=== PATIENT | female | born 1995 | race Caucasian/White ===

== ENCOUNTER 2021-03-01 17:06 | Emergency (ER) | payer SELFPAY ==
[~2021-03-01] VITALS: Ht 162.6 cm; Wt 85.6 kg
[2021-03-01 17:07] VITALS: BP 123/81
--- OUTSIDE RECORDS SUMMARY | 2021-03-01 17:18 | CCD ---
Author Author Peg Kingston [facility] Address [address], [place] [id number] Care Team Providers Care Communications Assistant Name Role Phone Augusta Kingston Unavailable Hallie Goodrich Unavailable Meghan Gerardo Unavailable Functional Status No Results Mental Status No Results Assessments ThuDec 20 03:32:32 EDT 2020: No Assessment Information Health Concerns Allergies No Known Allergy Information Encounters Program Name Primary Diagnosis Admission Date/Time Discharge Date/Time [facility] We August 29 09:00:00 EDT 2020Nov 16 00:00:00 EDT 2020 [facility] ThuAugust 21 15:05:00 EDT 2020 [facility] Pre-Admission August 21 14:00:00 EDT 2020 [facility] Pre-Admission n Jan 04 15:44:00 EDT 2017 [facility] Jan 07 09:00 :00 EDT 2017Nov 19 21:00:00 EDT 2019 [facility] Pre-Admission We Feb 21 08:00:00 EST 2019 [facility] Feb 22 09:00 :00 EST 2019Feb 22 21:00:00 EST 2019 [facility] Pre-Admission We May 09 10:45:00 EST 2020Jul 09 10:00:00 EDT 2020 [facility] August 23 09:55 :00 EDT 2020 Immunizations No Known Immunizations Lab Results No Known Laboratory Results Medical Equipment No Known Medical Equipment Medications Medication Directions Start Date End Date Methadone [id number] Sat September 15 00:00:00 EDT 2020Sep 23 00:00:00 EDT 2020 Methadone [id number] [facility] August 30 00:00:00 EDT 2020August 29 00:00:00 EDT 2021 Methadone [id number] ThuAugust 23 00:00:00 EDT 2020August 22 00:00:00 EDT 2021 Doxycycline 100 MG CAP Take one (1) capsule by padmini th twice a day ThuFeb 22 00:00:00 EST 2019Mar 03 00:00:00 EST 2020 Amoxicillin 500 MG CAP Take one (1) capsule by mouth three times a day ThuFeb 22 00:00:00 EST 2020 ThuFeb 28 00:00:00 EST 2 020 Diflucan 150 MG TAB Take one (1) tablet by mouth d aily ThuFeb 22 00:00:00 EST 2019Feb 22 00:00:00 EST 2019 Methadone [id number] ThuDec 04 00:00:00 EDT 2019Dec 03 00:00:00 EDT 2020 Methadone [id number] ThuOct 12 00:00:00 EDT 2019Oct 11 00:00:00 EDT 2020 Methadone [id number] ThuJul 17 00:00:00 EDT 2019Aug 06 00:00:00 EDT 2020 Methadone [id number] ThuJun 27 00:00:00 EDT 2019Jul 06 00:00:00 EDT 2020 Methadone [id number] ThuMay 27 00:00:00 EST 2019Jun 26 00:00:00 EDT 2019 Methadone [id number] ThuSeptember 17 00:00:00 EDT 2018September 14 00:00:00 EDT 2019 Methadone [id number] ThuAug 03 00:00:00 EDT 2018September 16 00:00:00 EDT 2018 Methadone [id number] ThuJun 29 00:00:00 EDT 2018Aug 02 00:00:00 EDT 2018 Methadone [id number] ThuMay 09 23:00:00 EST 2018Jun 28 00:00:00 EDT 2018 Methadone [id number] ThuApr 30 23:00:00 EST 2018May 08 23:00:00 EST 2018 Methadone [id number] ThuApr 27 23:00:00 EST 2018Apr 29 23:00:00 EST 2018 Methadone [id number] ThuApr 13 23:00:00 EST 2017Apr 26 23:00:00 EST 2018 Methadone [id number] ThuMar 22 23:00:00 EST 2017Apr 12 23:00:00 EST 2017 Methadone [id number] ThuMar 11 23:00:00 EST 2017Mar 21 23:00:00 EST 2017 Methadone [id number] ThuMar 03 23:00:00 EST 2017Mar 10 23:00:00 EST 2017 Methadone [id number] ThuFeb 13 00:00:00 EDT 2017Mar 02 23:00:00 EST 2017 Methadone [id number] ThuFeb 08 00:00:00 EDT 2017Feb 12 00:00:00 EDT 2017 Methadone [id number] ThuJan 30 00:00:00 EDT 2017Feb 07 00:00:00 EDT 2017 Methadone [id number] ThuJan 26 00:00:00 EDT 2017Jan 29 00:00:00 EDT 2017 Methadone [id number] ThuJan 19 00:00:00 EDT 2017Jan 25 00:00:00 EDT 2017 Methadone [id number] ThuJan 07 00:00:00 EDT 2017Jan 18 00:00:00 EDT 2017 Treatment Plan Interventions Individual Session- Addiction Medicine Program will provide six days per week for medication. Opportunities for clients to report symptoms of withdrawal, sedation and/or any adverse response to nurse, physician or primary counselor. Client will be provided scheduled dosing times by nursing staff. Program will provide scheduled medication related appointments including referrals for lab work. Program will provide any additional treatment recommendations, including medical, mental health etc. OTP staff will provide education on all medication changes (prescription and over the counter) and interactions with addiction medicine. Dose changes will be processed with OTP medical team including primary therapists. Client's medication safety will be ensured by the provision that they must return take home Methadone bottles and/or Suboxone wrappers as required. Client's response to interventions will be assessed clarifying potential barriers, documenting and creating a written commitment/treatment contract based on individual client needs which will be reviewed by the treatment team and will become a part of client's ongoing treatment plan. Communicate the availability a nd potential benefits of Certified Recovery Peer Advocate (CRPA) to the patient. This communication could take place at various points of treatment including but not limited to interim services, intake, assessment, orientation, individual or group therapy, etc. Patient will be encouraged to engage with a CRPA when desired. A referral can be made when necessary. The patient will be encouraged to attend planned sessions with the CRPA. The patient will be given an opportunity to provide updates including progress to lack of during individual and /or group therapy sessions while respecting the confidentiality of their peer relationship. Patient will meet with a peer advocate for one individual session for a minimum of 30 minutes. Clinicians will facilitate edu cational discussions centered around SAMHSA's 10 Guiding Principles of Recovery (see below), helping to promote a process of change through which individuals improve their health and wellness, live a self-directed life, and strive to reach their full potential. Clinicians will facilitate discussions aimed at assisting clients in developing and reinforcing the skills necessary to implement and enact the elements outlined in SAMHSA's 10 Guiding Principles of Recovery (see below). Clinicians will facilitate an interpersonal and process discussion centered around the cultiv ation of 11 therapeutic factors (based on Jose R Grijalva's 11 therapeutic factors as outlined in Theory and Practice of Group Psychotherapy): that change is possible, universality and the reduction of isolation, altruism and the development of self-efficacy, working through existential factors while dealing with grief and loss issues, the development of socializing techniques, modeling and imitating healthy behaviors, the exchange of psychoeducational information and interpersonal learning, catharsis and meaning-making from powerful affect that arises in the intersection of mental health and disordered substance use, within a cohesive interpersonal group setting that allows for safety and a sense of belonging in order to both recapitulate and present opportunities for working through and reformulating many of the dynamics of the primary family group in which adverse early-life events, traumas, formative interpersonal styles, and attachments may have originated. Discussing with client potentially meaningful connections between interpersonal process, substance use and other areas of wellness as defined by SAMHSA's Eight Dimensions of Wellness (Emotional, Environmental, Financial, Intellectual, Physical, Occupational, Social, Spiritual) group therapist will, on an ongoing basis, evaluate client's progress toward objectives.SAMHSA'S 10 Guiding Principles of Recovery:HopeThe belief that recovery is real provides the essential and motivating message of a better future that people can and do overcome the internal and external challenges, barriers, and obstacles that confront them. Person drivenSelf-determination and self- direction are the foundations for recovery as individuals define their own life goals and design their unique path(s) towards those goals.Many pathwaysIndividu als are unique with distinct needs, strengths, preferences, goals, culture, and backgrounds including traumatic experiences that affect and determine their pathway to recovery. HolisticRecovery encompasses an individual's whole life, including self-care practices, family, housing, employment, transportation, education, clinical treatment for mental disorders and substance use disorders, services and supports, primary healthcare, dental care, complementary and alternative services, sneha, spirituality, creativity, social networks, and community participation. The array of services and supports available should be integrated and coordinated.Peer supportAn important factor in the recovery process includes the sharing of experiential knowledge and skills, as well as social learning.Relati onalAn important factor in the recovery process is the presence and involvement of people who believe in the person's ability to recover, who offer hope, support, and encouragement, and suggest both strategies and resources for change. CultureCulture and cultural background in all of its diverse representations including values, traditions, and beliefs are keys in determining a person's journey and unique pathway to recovery. TraumaThe experience of trauma (such as physical or sexual abuse, domestic violence, war, disaster, and others) is often a precursor to or associated with substance use, mental health problems, and related issues. StrengthsIndividuals have strengths and resources that serve as a foundation for recovery. In addition, individuals have a personal responsibility for their own self-care and journey of recovery. Individuals should be supported in speaking for themselves regarding their strengths, needs, wants, desires, and aspirations.Respect: Recovery involves protecting one's rights and eliminating discrimination, acknowledging that taking steps towards recovery may require great courage. Self-acceptance, developing a positive and meaningful sense of identity, and re gaining belief in oneself are particularly important. Clinician will facilitate the delivery of information about and resources for the following physical well- being, public health and safety concerns: Smoking cessation, Hepatitis C, HIV and other Sexually Transmitted Infections, Communicable Diseases, and access to emergency services for housing, domestic violence, mental health and physical health crises. - Individual Session - [facility], when and if appropriate, will utilize motivational interviewing, cognitive behavioral therapy, dialectical behavioral therapy, psychodynamic approaches, family systems, narrative therapy, rational-emotive behavioral therapy, trauma-informed care, as well as solution-focused strategies in order to assist client in efforts to achieve substance use goals by engaging in the following: Establishing rapport and building trust. Will clarify the role of primary therapist with regard to coordinating care with referral sources or other concerned parties, including confidentiality and the role that progress reports and drug screen information will have in treatment. Will invite client to consider a trial of abstinence to help identify the role of substance use in client's life. Explore feelings of ambivalence and the conflicts between substance abuse and personal values. Seek to increase the client's awareness of the consequences of continued abuse and the benefits of decreasing or stopping use. Normalize ambivalence. Help the client clarify pros and cons of substance use and change. Changing extrinsic to intrinsic motivation. Engaging in discussions clarifying and strengthening personal commitment. Discussing and educating client about alternate treatment options and gathering information regarding alternative resources and possible referral(s) (ex. Self-help, Opioid Treatment Program, MATs, 12-step, SMART Recovery, Detox, Inpatient, Long-term Residential Treatment) in order to ensure that personal level of commitment matches treatment level and assist client in connecting with these resources. Clarify the client's own goals and strategies for change. Assist client in the creation of an action plan integrating abstinence with other areas of wellness. Consider and lower barriers to change. Help the client enlist social support. Explore treatment expectancies and the client's role. Elicit from the client what has worked in the past either for them or others who they know. Assist the client to negotiate finances, childcare, work transportation, or other potential barriers. Inform the client that relapse is not a barrier in the therapeutic re lationship and educate the client on how to appropriately address relapse in treatment. Help to execute an action plan and to work on skills to maintain sobriety. acknowledge the client's feelings and experiences as a normal part of recovery. Engage the client in treatment and reinforce the importance of remaining in recovery. Support a realistic view of change through small steps. Acknowledge difficulties for the client in early stages of change, i.e. withdrawal, people, places, and things. Help the client identify and sample drug-free sources of pleasure (i.e, new reinforcers). Support lifestyle changes. Affirm the client's resolve and self-efficacy. Help the client practice and use new coping strategies to avoid a return to use. Maintain supportive contact (e.g., explain to the client that clinician is available to talk between sessions). Review long-term goals and, when and if appropriate, discuss transition plan with the client, coordinating with referral sources and supportive family members as needed, including options for continuing care. Clinician will discuss and reinforce with client the ways in which continuing relapse prevention efforts contribute to overall wellness as defined by SAMHSA's Eight Dimensions of Wellness (Emotional, Environmental, Financial, Intellectual, Physical, Occupational, Social, Spiritual).Client will be given UDS in individual sessions as needed based on clinical presentation and will review/explore results of UDS with therapist, reflecting on factors that led to client's positive or negative UDS. When and if necessary client will be given a use reflection form to complete which will be staffed by the treatment team in order to collaborate on appropriate treatment recommendations. Will review attendance with client and identify and address barriers when necessary. When and If necessary client's attendance with be staffed by the treatment team. Treatment recommendations will be reviewed with client in individual sessions. Client's response to interventions will be assessed clarifying potential barriers, documenting and creating a written commitment/treatment contract based on individual client needs which will be reviewed by the treatment team and will become a part of client's ongoing treatment plan. Clinicians will facilitate edu cational discussions centered around SAMHSA's 10 Guiding Principles of Recovery (see below), helping to promote a process of change through which individuals improve their health and wellness, live a self-directed life, and strive to reach their full potential. Clinicians will facilitate discussions aimed at assisting clients in developing and reinforcing the skills necessary to implement and enact the elements outlined in SAMHSA's 10 Guiding Principles of Recovery (see below). Clinicians will facilitate an interpersonal and process discussion centered around the cultiv ation of 11 therapeutic factors (based on Jose R Grijalva's 11 therapeutic factors as outlined in Theory and Practice of Group Psychotherapy): that change is possible, universality and the reduction of isolation, altruism and the development of self-efficacy, working through existential factors while dealing with grief and loss issues, the development of socializing techniques, modeling and imitating healthy behaviors, the exchange of psychoeducational information and interpersonal learning, catharsis and meaning-making from powerful affect that arises in the intersection of mental health and disordered substance use, within a cohesive interpersonal group setting that allows for safety and a sense of belonging in order to both recapitulate and present opportunities for working through and reformulating many of the dynamics of the primary family group in which adverse early-life events, traumas, formative interpersonal styles, and attachments may have originated. Discussing with client potentially meaningful connections between interpersonal process, substance use and other areas of wellness as defined by SAMHSA's Eight Dimensions of Wellness (Emotional, Environmental, Financial, Intellectual, Physical, Occupational, Social, Spiritual) group therapist will, on an ongoing basis, evaluate client's progress toward objectives.SAMHSA'S 10 Guiding Principles of Recovery:HopeThe belief that recovery is real provides the essential and motivating message of a better future that people can and do overcome the internal and external challenges, barriers, and obstacles that confront them. Person drivenSelf-determination and self- direction are the foundations for recovery as individuals define their own life goals and design their unique path(s) towards those goals.Many pathwaysIndividu als are unique with distinct needs, strengths, preferences, goals, culture, and backgrounds including traumatic experiences that affect and determine their pathway to recovery. HolisticRecovery encompasses an individual's whole life, including self-care practices, family, housing, employment, transportation, education, clinical treatment for mental disorders and substance use disorders, services and supports, primary healthcare, dental care, complementary and alternative services, sneha, spirituality, creativity, social networks, and community participation. The array of services and supports available should be integrated and coordinated.Peer supportAn important factor in the recovery process includes the sharing of experiential knowledge and skills, as well as social learning.Relati onalAn important factor in the recovery process is the presence and involvement of people who believe in the person's ability to recover, who offer hope, support, and encouragement, and suggest both strategies and resources for change. CultureCulture and cultural background in all of its diverse representations including values, traditions, and beliefs are keys in determining a person's journey and unique pathway to recovery. TraumaThe experience of trauma (such as physical or sexual abuse, domestic violence, war, disaster, and others) is often a precursor to or associated with substance use, mental health problems, and related issues. StrengthsIndividuals have strengths and resources that serve as a foundation for recovery. In addition, individuals have a personal responsibility for their own self-care and journey of recovery. Individuals should be supported in speaking for themselves regarding their strengths, needs, wants, desires, and aspirations.Respect: Recovery involves protecting one's rights and eliminating discrimination, acknowledging that taking steps towards recovery may require great courage. Self-acceptance, developing a positive and meaningful sense of identity, and re gaining belief in oneself are particularly important. Clinician will facilitate the delivery of information about and resources for the following physical well- being, public health and safety concerns: Smoking cessation, Hepatitis C, HIV and other Sexually Transmitted Infections, Communicable Diseases, and access to emergency services for housing, domestic violence, mental health and physical health crises. GROUP: At any of various point s of treatment including but not limited to interim services, intake, assessment, orientation, individual or group therapy, staff will provide client with the appropriate Prevention, Education, and Treatment resources surrounding the use of and exposure to Tobacco and Nicotine-related products.In so doing, relevant staff will, when and if appropriate, will utilize motivational interviewing, cognitive behavioral therapy, dialectical behavioral therapy, psychodynamic approaches, family systems, narrative therapy, rational-emotive behavioral therapy, trauma-informed care, as well as solution-focused strategies in order to assist client in efforts to achieve tobacco prevention, education and treatment goals by engaging in the following: Review and assess tobacco/nicotine use and exposure, exploring nature of tobacco/nicotine use and exposure exploring connections between tobacco/nicotine and substance use concerns, identifying individualized recovery needs, and formulating an action plan and to address identified tobacco/nicotine concerns. Engage the client in treatment and reinforce the importance of follow- through with the action plan toward addressing tobacco/nicotine concerns. When and if necessary, educate and help client identify supportive resources. With the informed consent of client, coordinate care with supportive resources identified. When and if necessary, educate and help client identify supportive resources and explore the appropriateness of Nicotine Replacement Therapies (NRT) or other medication in the treatment of tobacco/nicotine use disorder. Clinician will provide client with behavioral observations in order to assist client in developing increased awareness and personal narrative of biopsychosocial causes of tobacco/nicotine history, exploring the role of family of origin, trauma, genetic, and environmental contributing factors. Clinician will prompt client to form and articulate meaningful connections between biopsychosocial causes and current symptomatology. Discussing with client potentially meaningful connections between tobacco/nicotine usage and other areas of wellness as defined by SAMAs Eight Dimensions of Wellness (Emotional, Environmental, Financial, Intellectual, Physical, Occupational, Social, Spiritual). Primary therapist will, on an ongoing basis, evaluate clients progress toward objectives. INDIVIDUAL: Primary therapist, when and if appropriate, will utilize motivational interviewing, cognitive behavioral therapy, dialectical behavioral therapy, psychodynamic approaches, family systems, narrative therapy, rational- emotive behavioral therapy, trauma-informed care, as well as solution-focused strategies in order to assist client in efforts to achieve legal goals by engaging in the following: Review and assess legal history and explore connections between legal history and substance use concerns, formulating an action plan to address legal concerns. Engage the client in treatment and sarita nforce the importance of follow-through with the action plan toward addressing legal concerns. When and if necessary, educate and help client identify supportive resources. With the informed consent of client, coordinate care with supportive resources identified. Clinician will provide client with behavioral observations in order to assist client in developing increased awareness and personal narrative of biopsychosocial causes of legal history, exploring the role of family of origin, trauma, genetic, and environmental contributing factors. Clinician will prompt client to form and articulate meaningful connections between biopsychosocial causes and current legal status. Discussing with client potentially meaningful connections between current legal status and other areas of wellness as defined by SAMHSA's Eight Dimensions of Wellness (Emotional, Environmental, Financial, Intellectual, Physical, Occupational, Social, Spiritual). Support a realistic view of change through small steps. Acknowledging and identifying barriers to action plan, prompting client to identify alternate solutions. Review with client changes made and outcomes of these changes. Primary therapist will, on an ongoing basis, evaluate client's progress toward objectives and will collaborate with client and treatment team in order to determine appropriate recommendations. Treatment recommendations will be reviewed with client in individual sessions. Client's response to interventions will be assessed, clarifying potential barriers, documenting and creating a written commitment/treatment contract based on individual client needs which will be reviewed by the treatment team and will become a part of client's ongoing treatment plan GROUP: Clinicians will facilit ate educational discussions centered around SAMHSA's 10 Guiding Principles of Recovery (see below), helping to promote a process of change through which individuals improve their health and wellness, live a self-directed life, and strive to reach their full potential. Clinicians will facilitate discussions aimed at assisting clients in developing and reinforcing the skills necessary to implement and enact the elements outlined in SAMHSA's 10 Guiding Principles of Recovery (see below). Clinicians will facilitate an interpersonal and process discussion centered around the cultivation of 11 therapeutic factors (based on Jose R Grijalva's 11 therapeutic factors as outlined in Theory and Practice of Group Psychotherapy): that change is possible, universality and the reduction of isolation, altruism and the development of self-efficacy, working through existential factors while dealing with grief and loss issues, the development of socializing techniques, modeling and imitating healthy behaviors, the exchange of psychoeducational information and interpersonal learning, catharsis and meaning-making from powerful affect that arises in the intersection of mental health and disordered substance use, within a cohesive interpersonal group setting that allows for safety and a sense of belonging in order to both recapitulate and present opportunities for working through and reformulating many of the dynamics of the primary family group in which adverse early-life events, traumas, formative interpersonal styles, and attachments may have originated. Discussing with client potentially meaningful connections between interpersonal process, substance use and other areas of wellness as defined by SAMHSA's Eight Dimensions of Wellness (Emotional, Environmental, Financial, Intellectual, Physical, Occupational, Social, Spiritual) group therapist will, on an ongoing basis, evaluate client's progress toward objectives.SAMHSA'S 10 Guiding Principles of Recovery:HopeThe be lief that recovery is real provides the essential and motivating message of a better future that people can and do overcome the internal and external challenges, barriers, and obstacles that confront them. Person drivenSelf-determination and self- direction are the foundations for recovery as individuals define their own life goals and design their unique path(s) towards those goals.Many pathwaysInd ividuals are unique with distinct needs, strengths, preferences, goals, culture, and backgrounds including traumatic experiences that affect and determine their pathway to recovery. HolisticRecovery encompasses an individual's whole life, including self-care practices, family, housing, employment, transportation, education, clinical treatment for mental disorders and substance use disorders, services and supports, primary healthcare, dental care, complementary and alternative services, sneha, spirituality, creativity, social networks, and community participation. The array of services and supports available should be integrated and coordinated.Peer supportAn important factor in the recovery process includes the sharing of experiential knowledge and skills, as well as social learning.R elationalAn important factor in the recovery process is the presence and involvement of people who believe in the person's ability to recover, who offer hope, support, and encouragement, and suggest both strategies and resources for change. CultureCulture and cultural background in all of its diverse representations including values, traditions, and beliefs are keys in determining a person's journey and unique pathway to recovery. TraumaThe experience of trauma (such as physical or sexual abuse, domestic violence, war, disaster, and others) is often a precursor to or associated with substance use, mental health problems, and related issues. StrengthsIndividuals have strengths and resources that serve as a foundation for recovery. In addition, individuals have a personal responsibility for their own self-care and journey of recovery. Individuals should be supported in speaking for themselves regarding their strengths, needs, wants, desires, and aspirations.Respect: Recovery involves protecting one's rights and eliminating discrimination, acknowledging that taking steps towards recovery may require great courage. Self-acceptance, developing a positive and meaningful sense of identity, and regaining belief in oneself are particularly important. Clinician will facilitate the delivery of information about and resources for the following physical well-being, public health and safety concerns: Smoking cessation, Hepatitis C, HIV and other Sexually Transmitted Infections, Communicable Diseases, and access to emergency services for housing, domestic violence, mental health and physical health crises. INDIVIDUAL: At any of various points of treatment including but not limited to interim services, intake, assessment, orientation, individual or group therapy, staff will provide client with the appropriate Prevention, Education, and Treatment resources surrounding the use of and exposure to Tobacco and Nicotine-related products.In so doing, relevant staff will, when and if appropriate, will utilize motivational interviewing, cognitive behavioral therapy, dialectical behavioral therapy, psychodynamic approaches, family systems, narrative therapy, rational-emotive behavioral therapy, trauma-informed care, as well as solution-focused strategies in order to assist client in efforts to achieve tobacco prevention, education and treatment goals by engaging in the following: Review and assess tobacco/nicotine use and exposure, exploring nature of tobacco/nicotine use and exposure exploring connections between tobacco/nicotine and substance use concerns, identifying individualized recovery needs, and formulating an action plan and to address identified tobacco/nicotine concerns. Engage the client in treatment and reinforce the importance of follow- through with the action plan toward addressing tobacco/nicotine concerns. When and if necessary, educate and help client identify supportive resources. With the informed consent of client, coordinate care with supportive resources identified. When and if necessary, educate and help client identify supportive resources and explore the appropriateness of Nicotine Replacement Therapies (NRT) or other medication in the treatment of tobacco/nicotine use disorder. Clinician will provide client with behavioral observations in order to assist client in developing increased awareness and personal narrative of biopsychosocial causes of tobacco/nicotine history, exploring the role of family of origin, trauma, genetic, and environmental contributing factors. Clinician will prompt client to form and articulate meaningful connections between biopsychosocial causes and current symptomatology. Discussing with client potentially meaningful connections between tobacco/nicotine usage and other areas of wellness as defined by SAMHSAs Eight Dimensions of Wellness (Emotional, Environmental, Financial, Intellectual, Physical, Occupational, Social, Spiritual). Primary therapist will, on an ongoing basis, evaluate clients progress toward objectives. Individual Session - Physical HealthPrimary therapist, when and if appropriate, will utilize motivational interviewing, cognitive behavioral therapy, dialectical behavioral therapy, psychodynamic approaches, family systems, narrative therapy, rational-emotive behavioral therapy, trauma-informed care, as well as solution-focused strategies in order to assist client in efforts to achieve physical health goals by engaging in the following: Engage the client in treatment and reinforce the importance of follow-through with the action plan toward addressing physical health concerns. Discussing with client potentially meaningful connections between current physical health status and other areas of wellness as defined by SAMHSA's Eight Dimensions of Wellness (Emotional, Environmental, Financial, Intellectual, Physical, Occupational, Social, Spiritual). Support a realistic view of change through small steps. Acknowledging and identifying barriers to action plan, prompting client to identify alternate solutions. Review with client changes made and outcomes of these changes. When and if necessary, educate and help client identify supportive resources and make appropriate referrals. With the informed consent of client, coordinate care with supportive resources identified. Primary therapist will, on an ongoing basis, evaluate client's progress toward objectives and will collaborate with client and treatment team in order to determine appropriate recommendations. Treatment recommendations will be reviewed with client in individual sessions. Client's response to interventions will be assessed clarifying potential barriers, documenting and creating a written commitment/treatment contract based on individual client needs which will be reviewed by the treatment team and will become a part of client's ongoing treatment plan. Individual Session - Mental althPrimary therapist, when and if appropriate, will utilize motivational interviewing, cognitive behavioral therapy, dialectical behavioral therapy, psychodynamic approaches, family systems, narrative therapy, rational-emotive behavioral therapy, trauma-informed care, as well as solution-focused strategies in order to assist client in efforts to achieve mental health goals by engaging in the following: review and assess for mental health diagnoses, exploring nature of diagnoses and exploring connections between mental health and substance use concerns, formulating an action plan to address mental health. Engage the client in treatment and reinforce the importance of follow-through with the action plan toward addressing mental health concerns. When and if necessary, educate and help client identify supportive resources, make appropriate referrals and explore the appropriateness of medication in the treatment of mental health concerns. With the informed consent of client, coordinate care with supportive resources identified. Clinician will provide client with behavioral observations in order to assist client in developing increased awareness and personal narrative of biopsychosocial causes of mental health concerns, exploring the role of family of origin, trauma, genetic, and environmental contributing factors. Clinician will prompt client to form and articulate meaningful connections between biopsychosocial causes and current symptomatology. Discussing with client potentially meaningful connections between current mental health status and other areas of wellness as defined by SAMHSA's Eight Dimensions of Wellness (Emotional, Environmental, Financial, Intellectual, Physical, Occupational, Social, Spiritual). Support a realistic view of change through small steps. Acknowledging and identifying barriers to action plan, prompting client to identify alternate solutions. Review with client changes made and outcomes of these changes. Primary therapist will, on an ongoing basis, evaluate client's progress toward objectives and will collaborate with client and treatment team in order to determine appropriate recommendations. Treatment recommendations will be reviewed with client in individual sessions. Client's response to interventions will be assessed clarifying potential barriers, documenting and creating a written commitment/treatment contract based on individual client needs which will be reviewed by the treatment team and will become a part of client's ongoing treatment plan. Clinicians will facilitate edu cational discussions centered around SAMHSA's 10 Guiding Principles of Recovery (see below), helping to promote a process of change through which individuals improve their health and wellness, live a self-directed life, and strive to reach their full potential. Clinicians will facilitate discussions aimed at assisting clients in developing and reinforcing the skills necessary to implement and enact the elements outlined in SAMHSA's 10 Guiding Principles of Recovery (see below). Clinicians will facilitate an interpersonal and process discussion centered around the cultiv ation of 11 therapeutic factors (based on Jose R Grijalva's 11 therapeutic factors as outlined in Theory and Practice of Group Psychotherapy): that change is possible, universality and the reduction of isolation, altruism and the development of self-efficacy, working through existential factors while dealing with grief and loss issues, the development of socializing techniques, modeling and imitating healthy behaviors, the exchange of psychoeducational information and interpersonal learning, catharsis and meaning-making from powerful affect that arises in the intersection of mental health and disordered substance use, within a cohesive interpersonal group setting that allows for safety and a sense of belonging in order to both recapitulate and present opportunities for working through and reformulating many of the dynamics of the primary family group in which adverse early-life events, traumas, formative interpersonal styles, and attachments may have originated. Discussing with client potentially meaningful connections between interpersonal process, substance use and other areas of wellness as defined by SAMHSA's Eight Dimensions of Wellness (Emotional, Environmental, Financial, Intellectual, Physical, Occupational, Social, Spiritual) group therapist will, on an ongoing basis, evaluate client's progress toward objectives.SAMHSA'S 10 Guiding Principles of Recovery:HopeThe belief that recovery is real provides the essential and motivating message of a better future that people can and do overcome the internal and external challenges, barriers, and obstacles that confront them. Person drivenSelf-determination and self- direction are the foundations for recovery as individuals define their own life goals and design their unique path(s) towards those goals.Many pathwaysIndividu als are unique with distinct needs, strengths, preferences, goals, culture, and backgrounds including traumatic experiences that affect and determine their pathway to recovery. HolisticRecovery encompasses an individual's whole life, including self-care practices, family, housing, employment, transportation, education, clinical treatment for mental disorders and substance use disorders, services and supports, primary healthcare, dental care, complementary and alternative services, sneha, spirituality, creativity, social networks, and community participation. The array of services and supports available should be integrated and coordinated.Peer supportAn important factor in the recovery process includes the sharing of experiential knowledge and skills, as well as social learning.Relati onalAn important factor in the recovery process is the presence and involvement of people who believe in the person's ability to recover, who offer hope, support, and encouragement, and suggest both strategies and resources for change. CultureCulture and cultural background in all of its diverse representations including values, traditions, and beliefs are keys in determining a person's journey and unique pathway to recovery. TraumaThe experience of trauma (such as physical or sexual abuse, domestic violence, war, disaster, and others) is often a precursor to or associated with substance use, mental health problems, and related issues. StrengthsIndividuals have strengths and resources that serve as a foundation for recovery. In addition, individuals have a personal responsibility for their own self-care and journey of recovery. Individuals should be supported in speaking for themselves regarding their strengths, needs, wants, desires, and aspirations.Respect: Recovery involves protecting one's rights and eliminating discrimination, acknowledging that taking steps towards recovery may require great courage. Self-acceptance, developing a positive and meaningful sense of identity, and re gaining belief in oneself are particularly important. Clinician will facilitate the delivery of information about and resources for the following physical well- being, public health and safety concerns: Smoking cessation, Hepatitis C, HIV and other Sexually Transmitted Infections, Communicable Diseases, and access to emergency services for housing, domestic violence, mental health and physical health crises. GROUP: Clinicians will facilit ate educational discussions centered around SAMHSA's 10 Guiding Principles of Recovery (see below), helping to promote a process of change through which individuals improve their health and wellness, live a self-directed life, and strive to reach their full potential. Clinicians will facilitate discussions aimed at assisting clients in developing and reinforcing the skills necessary to implement and enact the elements outlined in SAMHSA's 10 Guiding Principles of Recovery (see below). Clinicians will facilitate an interpersonal and process discussion centered around the cultivation of 11 therapeutic factors (based on Jose R Grijalva's 11 therapeutic factors as outlined in Theory and Practice of Group Psychotherapy): that change is possible, universality and the reduction of isolation, altruism and the development of self-efficacy, working through existential factors while dealing with grief and loss issues, the development of socializing techniques, modeling and imitating healthy behaviors, the exchange of psychoeducational information and interpersonal learning, catharsis and meaning-making from powerful affect that arises in the intersection of mental health and disordered substance use, within a cohesive interpersonal group setting that allows for safety and a sense of belonging in order to both recapitulate and present opportunities for working through and reformulating many of the dynamics of the primary family group in which adverse early-life events, traumas, formative interpersonal styles, and attachments may have originated. Discussing with client potentially meaningful connections between interpersonal process, substance use and other areas of wellness as defined by SAMHSA's Eight Dimensions of Wellness (Emotional, Environmental, Financial, Intellectual, Physical, Occupational, Social, Spiritual) group therapist will, on an ongoing basis, evaluate client's progress toward objectives.SAMHSA'S 10 Guiding Principles of Recovery:HopeThe be lief that recovery is real provides the essential and motivating message of a better future that people can and do overcome the internal and external challenges, barriers, and obstacles that confront them. Person drivenSelf-determination and self- direction are the foundations for recovery as individuals define their own life goals and design their unique path(s) towards those goals.Many pathwaysInd ividuals are unique with distinct needs, strengths, preferences, goals, culture, and backgrounds including traumatic experiences that affect and determine their pathway to recovery. HolisticRecovery encompasses an individual's whole life, including self-care practices, family, housing, employment, transportation, education, clinical treatment for mental disorders and substance use disorders, services and supports, primary healthcare, dental care, complementary and alternative services, sneha, spirituality, creativity, social networks, and community participation. The array of services and supports available should be integrated and coordinated.Peer supportAn important factor in the recovery process includes the sharing of experiential knowledge and skills, as well as social learning.R elationalAn important factor in the recovery process is the presence and involvement of people who believe in the person's ability to recover, who offer hope, support, and encouragement, and suggest both strategies and resources for change. CultureCulture and cultural background in all of its diverse representations including values, traditions, and beliefs are keys in determining a person's journey and unique pathway to recovery. TraumaThe experience of trauma (such as physical or sexual abuse, domestic violence, war, disaster, and others) is often a precursor to or associated with substance use, mental health problems, and related issues. StrengthsIndividuals have strengths and resources that serve as a foundation for recovery. In addition, individuals have a personal responsibility for their own self-care and journey of recovery. Individuals should be supported in speaking for themselves regarding their strengths, needs, wants, desires, and aspirations.Respect: Recovery involves protecting one's rights and eliminating discrimination, acknowledging that taking steps towards recovery may require great courage. Self-acceptance, developing a positive and meaningful sense of identity, and regaining belief in oneself are particularly important. Clinician will facilitate the delivery of information about and resources for the following physical well-being, public health and safety concerns: Smoking cessation, Hepatitis C, HIV and other Sexually Transmitted Infections, Communicable Diseases, and access to emergency services for housing, domestic violence, mental health and physical health crises. Problems Active Concerns* Address substance use concern(s)* Code: * Start Date: ThuAugust 31 00:00:00 EDT 2020 * Text: * Address legal concern(s)* Code: * Start Date: ThuAugust 31 00:00:00 EDT 2020 * Text: * Prevention, Education, and Treatment surrounding use of and exposure to Tobacco* Code: * Start Date: ThuAugust 31 00:00:00 EDT 2020 * Text: * Opioid type dependence, unspecified* Code: [id number] * Start Date: ThuJan 07 06:51:00 EDT 2017 * Text: * Address mental health concerns(s)* Code: * Start Date: ThuAugust 31 00:00:00 EDT 2020 * Text: * Address physical health concern(s)* Code: * Start Date: ThuAugust 31 00:00:00 EDT 2020 * Text: * Address addiction medicine concern(s)* Code: * Start Date: ThuAugust 31 00:00:00 EDT 2020 * Text: * Tobacco use disorder* Code: [id number] * Start Date: ThuAugust 22 00:00:00 EDT 2020 * Text: * Opioid abuse, unspecified* Code: [id number] * Start Date: ThuAugust 22 00:00:00 EDT 2020 * Text: * Exposure to and engagement with Peer Services* Code: * Start Date: ThuSep 18 00:00:00 EDT 2019 * Text: Procedures Procedure Date Practitioner Name Location [facility] Pre-Admission Initial Assessment Session ThuAugust 22 10:30:00 EDT 2021 Social History Social History Observation Description Date Sex Female ThuSep 23 00:00:00 EDT 1993 Vital Signs No Known Vitals
--- OUTSIDE RECORDS SUMMARY | 2021-03-01 17:18 | CCD ---
Author Author Peg Montoya Generated Organization [facility] Address Unknown Phone Unavailable Functional Status No Results Mental Status No Results Assessments ThuFeb 23 02:44:53 EDT 2020: No Assessment Information Health Concerns Allergies No Known Allergy Information Encounters No Known Encounters Immunizations No Known Immunizations Lab Results No Known Laboratory Results Medical Equipment No Known Medical Equipment Medications Medication Directions Start Date End Date Methadone [id number] ThuSeptember 15 00:00:00 EDT 2020Sep 23 00:00:00 EDT 2020 Methadone [id number] ThuAugust 30 00:00:00 EDT 2020August 29 00:00:00 EDT 2021 Methadone [id number] ThuAugust 23 00:00:00 EDT 2020August 22 00:00:00 EDT 2021 Doxycycline 100 MG CAP Take one (1) capsule by padmini th twice a day ThuFeb 22 00:00:00 EST 2019Mar 03 00:00:00 EST 2019 Amoxicillin 500 MG CAP Take one (1) capsule by mouth three times a day ThuFeb 22 00:00:00 EST 2019Feb 28 00:00:00 EST 2 020 Diflucan 150 MG TAB Take one (1) tablet by mouth d aily ThuFeb 22 00:00:00 EST 2019Feb 22 00:00:00 EST 2020 Methadone [id number] ThuDec 04 00:00:00 EDT 2019Dec 03 00:00:00 EDT 2020 Methadone [id number] ThuOct 12 00:00:00 EDT 2019Oct 11 00:00:00 EDT 2020 Methadone [id number] ThuJul 17 00:00:00 EDT 2019Aug 06 00:00:00 EDT 2019 Methadone [id number] ThuJun 27 00:00:00 EDT 2019Jul 06 00:00:00 EDT 2019 Methadone [id number] ThuMay 27 00:00:00 EST 2019Jun 26 00:00:00 EDT 2019 Methadone [id number] ThuSeptember 17 00:00:00 EDT 2018September 14 00:00:00 EDT 2019 Methadone [id number] ThuAug 03 00:00:00 EDT 2018September 16 00:00:00 EDT 2018 Methadone [id number] ThuJun 29 00:00:00 EDT 2018Aug 02 00:00:00 EDT 2018 Methadone [id number] ThuMay 09 23:00:00 EST 2018Jun 28 00:00:00 EDT 2018 Methadone [id number] ThuApr 30 23:00:00 EST 2018 Sat May 08 23:00:00 EST 2018 Methadone [id number] ThuApr 27 23:00:00 EST 2018 [place] Apr 29 23:00:00 EST 2018 Methadone [id number] ThuApr 13 23:00:00 EST 2017Apr 26 23:00:00 EST 2018 Methadone [id number] ThuMar 22 23:00:00 EST 2017Apr 12 23:00:00 EST 2017 Methadone [id number] ThuMar 11 23:00:00 EST 2017Mar 21 23:00:00 EST 2017 Methadone [id number] ThuMar 03 23:00:00 EST 2017Mar 10 23:00:00 EST 2017 Methadone [id number] ThuFeb 13 00:00:00 EDT 2017Mar 02 23:00:00 EST 2017 Methadone [id number] ThuFeb 08 00:00:00 EDT 2017Feb 12 00:00:00 EDT 2017 Methadone [id number] ThuJan 30 00:00:00 EDT 2017Feb 07 00:00:00 EDT 2017 Methadone [id number] ThuJan 26 00:00:00 EDT 2017Jan 29 00:00:00 EDT 2017 Methadone [id number] ThuJan 19 00:00:00 EDT 2017Jan 25 00:00:00 EDT 2017 Methadone [id number] ThuJan 07 00:00:00 EDT 2017Jan 18 00:00:00 [...] health crises. - Individual Session - [facility] UsePrimary therapist, when and if appropriate, will utilize [...] client's ongoing treatment plan. Individual Session - [facility] therapist, when and if appropriate, will utilize [...] Text: * Opioid type dependence, unspecified* Code: [id number] * Start Date: ThuJan 07 06:51:00 EDT 2017 * Text: * Address mental health concerns(s)* Code: * Start Date: ThuAugust 31 00:00:00 EDT 2020 * Text: * Address physical health concern(s)* Code: * Start Date: ThuAugust 31 00:00:00 EDT 2020 * Text: * Address addiction medicine concern(s)* Code: * Start Date: ThuAugust 31 00:00:00 EDT 2020 * Text: * Tobacco use disorder* Code: [id number] * Start Date: ThuAugust 22 00:00:00 EDT 2020 * Text: * Opioid abuse, unspecified* Code: [id number] * Start Date: ThuAugust 22 00:00:00 EDT 2020 * Text: * Exposure to and engagement with Peer Services* Code: * Start Date: ThuSep 18 00:00:00 EDT 2019 * Text: Procedures Procedure Date Practitioner Name Location [facility]TP Pre-Admission Initial Assessment Session ThuAugust 22 10:30:00 EDT 2020 Social History Social History Observation Description Date Sex Female ThuSep 23 00:00:00 EDT 1993 Vital Signs No Known Vitals
--- OUTSIDE RECORDS SUMMARY | 2021-03-01 17:18 | CCD ---
Author Author [facility] Organization [facility] Address Unknown Phone Unavailable Care Team Providers Care Sdet Name Role Phone Abad, Alanna CONTENT DEVELOPMENT SPECIALIST Unavailable Unavailable Abad, Alanna CONTENT DEVELOPMENT SPECIALIST Unavailable Unavailable Abad, Alanna CONTENT DEVELOPMENT SPECIALIST Unavailable Unavailable Abad, Alanna CONTENT DEVELOPMENT SPECIALIST Unavailable Unavailable Abad, Alanna CONTENT DEVELOPMENT SPECIALIST Unavailable Unavailable Abad, Alanna CONTENT DEVELOPMENT SPECIALIST Unavailable Unavailable Abad, Alanna CONTENT DEVELOPMENT SPECIALIST Unavailable Unavailable Abad, Alanna CONTENT DEVELOPMENT SPECIALIST Unavailable Unavailable Abad, Alanna CONTENT DEVELOPMENT SPECIALIST Unavailable Unavailable Abad, Alanna CONTENT DEVELOPMENT SPECIALIST Unavailable Unavailable Abad, Alanna CONTENT DEVELOPMENT SPECIALIST Unavailable Unavailable Abad, Alanna CONTENT DEVELOPMENT SPECIALIST Unavailable Unavailable Abad, Alanna CONTENT DEVELOPMENT SPECIALIST Unavailable Unavailable Abad, Alanna CONTENT DEVELOPMENT SPECIALIST Unavailable Unavailable Abad, Alanna CONTENT DEVELOPMENT SPECIALIST Unavailable Unavailable Abad, Alanna CONTENT DEVELOPMENT SPECIALIST Unavailable Unavailable Abad, Alanna CONTENT DEVELOPMENT SPECIALIST Unavailable Unavailable Abad, Alanna CONTENT DEVELOPMENT SPECIALIST Unavailable Unavailable Abad, Alanna CONTENT DEVELOPMENT SPECIALIST Unavailable Unavailable Abad, Alanna CONTENT DEVELOPMENT SPECIALIST Unavailable Unavailable Abad, Alanna CONTENT DEVELOPMENT SPECIALIST Unavailable Unavailable Abad, Alanna CONTENT DEVELOPMENT SPECIALIST Unavailable Unavailable Abad, Alanna CONTENT DEVELOPMENT SPECIALIST Unavailable Unavailable Abad, Alanna CONTENT DEVELOPMENT SPECIALIST Unavailable Unavailable Abad, Alanna CONTENT DEVELOPMENT SPECIALIST Unavailable Unavailable Abad, Alanna CONTENT DEVELOPMENT SPECIALIST Unavailable Unavailable Abad, Alanna CONTENT DEVELOPMENT SPECIALIST Unavailable Unavailable Abad, Alanna CONTENT DEVELOPMENT SPECIALIST Unavailable Unavailable Letty, L [place] ADMINISTRATIVE NURSING SUPERVISOR Unavailable Unavailable COOK ., TOMASA DO Unavailable Unavailable COOK ., TOMASA DO Unavailable Unavailable Ahmed, M Mohamed MD Unavailable Unavailable Ahmed, M Mohamed MD Unavailable Unavailable Ahmed, M Mohamed MD Unavailable Unavailable Ahmed, M Mohamed MD Unavailable Unavailable Ahmed, M Mohamed MD Unavailable Unavailable Ahmed, M Mohamed MD Unavailable Unavailable Ahmed, M Mohamed MD Unavailable Unavailable Ahmed, M Mohamed MD Unavailable Unavailable Ahmed, M Mohamed MD Unavailable Unavailable Ahmed, M Mohamed MD Unavailable Unavailable Ahmed, M Mohamed MD Unavailable Unavailable Ahmed, M Mohamed MD Unavailable Unavailable Ahmed, M Mohamed MD Unavailable Unavailable Ahmed, M Mohamed MD Unavailable Unavailable Ahmed, M Mohamed MD Unavailable Unavailable Ahmed, M Mohamed MD Unavailable Unavailable Ahmed, M Mohamed MD Unavailable Unavailable Ahmed, M Mohamed MD Unavailable Unavailable Ahmed, M Mohamed MD Unavailable Unavailable Ahmed, M Mohamed MD Unavailable Unavailable Ahmed, M Mohamed MD Unavailable Unavailable Ahmed, M Mohamed MD Unavailable Unavailable Ahmed, M Mohamed MD Unavailable Unavailable Ahmed, M Mohamed MD Unavailable Unavailable Ahmed, M Mohamed MD Unavailable Unavailable Ahmed, M Mohamed MD Unavailable Unavailable Ahmed, M Mohamed MD Unavailable Unavailable Ahmed, M Mohamed MD Unavailable Unavailable Ahmed, M Mohamed MD Unavailable Unavailable Ahmed, M Mohamed MD Unavailable Unavailable Ahmed, M Mohamed MD Unavailable Unavailable Ahmed, M Mohamed MD Unavailable Unavailable Ahmed, M Mohamed MD Unavailable Unavailable Ahmed, M Mohamed MD Unavailable Unavailable Ahmed, M Mohamed MD Unavailable Unavailable Ahmed, M Mohamed MD Unavailable Unavailable Ahmed, M Mohamed MD Unavailable Unavailable Ahmed, M Mohamed MD Unavailable Unavailable Ahmed, M Mohamed MD Unavailable Unavailable Ahmed, M Mohamed MD Unavailable Unavailable Ahmed, M Mohamed MD Unavailable Unavailable Ahmed, M Mohamed MD Unavailable Unavailable Ahmed, M Mohamed MD Unavailable Unavailable Ahmed, M Mohamed MD Unavailable Unavailable Ahmed, M Mohamed MD Unavailable Unavailable Ahmed, M Mohamed MD Unavailable Unavailable Ahmed, M Mohamed MD Unavailable Unavailable Ahmed, M Mohamed MD Unavailable Unavailable Ahmed, M Mohamed MD Unavailable Unavailable Nupuf, S Dada MD Unavailable Unavailable Nupuf, S Dada MD Unavailable Unavailable Nupuf, S Dada MD Unavailable Unavailable Nupuf, S Dada MD Unavailable Unavailable Nupuf, S Dada MD Unavailable Unavailable Nupuf, S Dada MD Unavailable Unavailable Nupuf, S Dada MD Unavailable Unavailable Nupuf, S Dada MD Unavailable Unavailable Nupuf, S Dada MD Unavailable Unavailable Nupuf, S Dada MD Unavailable Unavailable Nupuf, S Dada MD Unavailable Unavailable Nupuf, S Dada MD Unavailable Unavailable Nupuf, S Dada MD Unavailable Unavailable Nupuf, S Dada MD Unavailable Unavailable Nupuf, S Dada MD Unavailable Unavailable Nupuf, S Dada MD Unavailable Unavailable Nupuf, S Dada MD Unavailable Unavailable Nupuf, S Dada MD Unavailable Unavailable Nupuf, S Dada MD Unavailable Unavailable Nupuf, S Dada MD Unavailable Unavailable Nupuf, S Dada MD Unavailable Unavailable Nupuf, S Dada MD Unavailable Unavailable Nupuf, S Dada MD Unavailable Unavailable Jazmin Boudreaux MD Unavailable Unavailable Jazmin Boudreaux MD Unavailable Unavailable Jazmin Boudreaux MD Unavailable Unavailable Jazmin Boudreaux MD Unavailable Unavailable Jazmin Boudreaux MD Unavailable Unavailable Jazmin Boudreaux MD Unavailable Unavailable Jazmin Boudreaux MD Unavailable Unavailable Jazmin Boudreaux MD Unavailable Unavailable Jazmin Boudreaux MD Unavailable Unavailable Jazmin Boudreaux MD Unavailable Unavailable Jazmin Boudreaux MD Unavailable Unavailable Jazmin Boudreaux MD Unavailable Unavailable Jazmin Boudreaux MD Unavailable Unavailable Jazmin Boudreaux MD Unavailable Unavailable Jazmin Boudreaux MD Unavailable Unavailable Jazmin Boudreaux MD Unavailable Unavailable Jazmin Boudreaux MD Unavailable Unavailable Jazmin Boudreaux MD Unavailable Unavailable Jazmin Boudreaux MD Unavailable Unavailable Jazmin Boudreaux MD Unavailable Unavailable Fernando Yanez [facility] Unavailable Unavailable Singh Xiao MD Unavailable Unavailable Singh Xiao MD Unavailable Unavailable Singh Xiao MD Unavailable Unavailable Singh Xiao MD Unavailable Unavailable Singh Xiao MD Unavailable Unavailable Singh Xiao MD Unavailable Unavailable Singh MAHCADO MD Unavailable Unavailable Singh MACHADO MD Unavailable Unavailable Singh MACHADO MD Unavailable Unavailable Singh MACHADO MD Unavailable Unavailable Singh MACHADO MD Unavailable Unavailable Singh MACHADO MD Unavailable Unavailable Re-disclosure Warning The records that you are about to access may contain information from federally-assisted alcohol or drug abuse programs. If such information is present, then the following federally mandated warning applies: This information has been disclosed to you from records protected by federal confidentiality rules (42 CFR part 2). The federal rules prohibit you from making any further disclosure of this information unless further disclosure is expressly permitted by the written consent of the person to whom it pertains or as otherwise permitted by 42 CFR part 2. A general authorization for the release of medical or other information is NOT sufficient for this purpose. The Federal rules restrict any use of the information to criminally investigate or prosecute any alcohol or drug abuse patient.The records that you are about to access may contain highly sensitive health information, the redisclosure of which is protected by Article 27-F of the [facility] Public Health law. If you continue you may have access to information: Regarding HIV / AIDS; Provided by facilities licensed or operated by the [facility] Office of Mental Health; or Provided by the [facility] Office for People With Developmental Disabilities. If such information is present, then the following [facility] mandated warning applies: This information has been disclosed to you from confidential records which are protected by state law. State law prohibits you from making any further disclosure of this information without the specific written consent of the person to whom it pertains, or as otherwise permitted by law. Any unauthorized further disclosure in violation of state law may result in a fine or fpc sentence or both. A general authorization for the release of medical or other information is NOT sufficient authorization for further disc losure. Allergies and Adverse Reactions Type Description Substance Reaction Status Data Source(s ) Drug allergy latex Latex RASH/HIVES [facility] Family History Family Member Name Family Member Gender Family Member Status Date o f Status Description Data Source(s) Unknown Condition [facility] Unknown Condition [facility] Unknown Condition [facility] Unknown Condition [facility] Unknown Condition [facility] Unknown Condition [facility] Unknown Condition [facility] Encounters Encounter Providers Location Date Indications Data Source(s ) Outpatient 02/25/2021 12:00:00 AM [facility] Outpatient 02/18/2021 12:00:[address] [facility] Outpatient Attender: ALBINO MACHADO MDReferrer: ALBINO Donovan MD 02/11/2021 12:00:00 AM EDT Opioid dependence, uncomplicated [facility] Opioid dependence, uncomplicated Outpatient Attender: ALBINO MACHADO MD [id number] 02/11 12:00:00 AM EDT - 02/11/2021 03:01:34 PM EDT [facility] fol Outpatient 02/04/2021 12:00:[address] [facility] Outpatient Attender: ALBINO MACHADO MD [id number] 01/29 12:00:00 AM EDT - 01/29/2021 12:03:48 PM EDT [facility] Outpatient Attender: Gibson Xiao MDReferrer: ALBINO MACHADO MD [id number] 01/29/2021 12:00:00 AM EDT - 01/29/2021 10:31:[address] [facility] Outpatient Attender: ALBINO MACHADO MD [id number] 01/21 12:00:00 AM EDT - 01/21/2021 02:14:10 PM EDT [facility] consult Emergency Attender: ALBINO MACHADO MD [id number] 01/17 12:00:00 AM EDT - 01/17/2021 10:02:[address] [facility] addiction problem Patient discharged. Outpatient Attender: Moody Yanez [facility] [place]30[facility]2020 09:30 :00 [facility]: Moody Yanez [facility] India Saenz [facility] 11/22/2020 03:00:00 PM [facility] Emergency Attender: TOMASA COOK . 11:30:00 PM EDT - 10/03/2020 12:40:00 AM EDT 941-MH Eval [facility] 941-MH Eval Patient discharged. Unlisted evaluation and management service 08/29/2020 01:00:00 PM EDT - 11/16/2020 04:00:00 AM EDT [facility] ([place] [facility]) Unlisted evaluation and management service 09/2020 01:55:00 PM EDT [facility] ([place] [facility]) Emergency Attender: Debbie Stovall MD 08/22 08:19:00 PM EDT - 08/22/2020 11:00:00 PM EDT Infection on Forehead Lip/Vaginal Complaint [facility] Infection on Forehead Lip/Vaginal Comp laint Patient discharged. Emergency Attender: Jazmin Boudreaux MD 021 04:01:00 PM EDT - 08/22/2020 06:20:00 PM EDT Infection On Face/Vaginal Complaint [facility] Infection On Face/Vaginal Complaint Patient discharged. Unlisted evaluation and management service 07/2020 07:05:00 PM EDT [facility] ([place] [facility]) Unlisted evaluation and management service 07/2020 06:00:00 PM EDT [facility] ([place] [facility]) Unlisted evaluation and management service 05/09/2020 03:45:00 PM EST - 07/09/2020 02:00:00 PM EDT [facility] ([place] [facility]) Outpatient Attender: Dada Bautista MD 02/23/2020 07:57:00 PM EST surgical services asst [facility] surgical services asst Unlisted evaluation and management service 02/23/2020 02:00:00 PM EST - 02/24/2020 02:00:00 AM EST [facility] ([place] [facility]) Unlisted evaluation and management service 07/2019 01:00:00 PM EST [facility] ([place] [facility]) Unknown<td ID="encounterTypeDescriptionI D0">Correspondence</td><td>Alanna Melgoza CONTENT DEVELOPMENT SPECIALIST</td><td>[facility]</td><td>02/09/2020</td><td></td> Attender: Alanna Megloza NP [facility] 02/09/2020 11:33:00 AM EDT - 02/09/2020 11:59:00 PM EDT [facility] <td ID="encounterTypeDescriptionID1">Veronika rt Update</td><td>Alanna Melgoza CONTENT DEVELOPMENT SPECIALIST</td><td>[facility]</td><td>02/01/2020</td><td></td>Unknown Attender: Alanna Melgoza LEONARD [facility] 02/01/2020 11:39:00 AM EDT - 02/01/2020 11:59:[address] [facility] Unknown<td ID="encounterTypeDescriptionI D2">Correspondence</td><td>Alanna Melgoza LEONARD</td><td>[facility]</td><td>01/18/2020</td><td></td> Attender: Alanna Melgoza LEONARD [facility] 01/18/2020 10:00:00 AM EDT - 01/18/2020 11:59:00 PM EDT [facility]) Immunizations Vaccine Date Status Description Data Source(s) COVID-19 VACCINE [facility] 11/06/2020 12:00:00 AM EDT completed [facility] Vaccine Series Complete: YESThis Data wa s Submitted to [facility] Via [facility]. TB Skin test is not vaccine. 01/12/2020 11:40:00 AM EDT complete d <td ID="Nplpjzyfbxufg-Ohtdnsslsse-LB7">PPD TB TST</td><td ID="ImmunizationDose- 1">1</td><td>01/12/2020</td><td ID="Vaejvqjszmwbf-WqfmfHoax-KB1"></td><td></td> <td ID="Jtgfduifxuhzs-Svpxem-QI3">Complete (Reported)</td><td>Patient</td><td ID="Uoutvxekytwoy-Nygnn-Bpox-Comment-ID1"></td> [facility]) Medications Medication Brand Name Start Date Product Form Dose Route Admi nistrative Instructions Pharmacy Instructions Status Indications Reaction Description Data Source(s) 12-3 mg 01/31/2021 12:00:00 AM EDT film 6 PLACE 1 FILM UNDER THE TONGUE EVERY DAY FOR 6 DAYS , MAXIMUM DAILY DOSE = 1 PLACE 1 FILM UNDER THE TONGUE EVERY DAY FOR 6 DAYS , MAXIMUM DAILY DOSE = 1 SOLD: 01/31/2021 [facility] 30 mg 01/21/2021 12:00:00 AM EDT tablet 30 TAKE ONE TABLET BY MOUTH EVERY DAY AT NIGHT TAKE ONE TABLET BY MOUTH EVERY DAY AT NIGHT SOLD: 01/22/2021 [facility] 12-3 mg 01/21/2021 12:00:00 AM EDT film 8 PLACE ONE FILM UNDER THE TONGUE EVERY DAY FOR 8 DAYS. MAXIMUM DAILY DOSE = [address] ONE FILM UNDER THE TONGUE EVERY DAY FOR 8 DAYS. MAXIMUM DAILY DOSE = 1 FILM SOLD: 01/22/2021 [facility] 50 mg 01/21/2021 12:00:00 AM EDT tablet 30 TAKE ONE TABLET BY MOUTH EVERY DAY AT NIGHT TAKE ONE TABLET BY MOUTH EVERY DAY AT NIGHT SOLD: 01/22/2021 [facility] 4 mg/actuation 01/21/2021 12:00:00 AM EDT spray,non-aerosol 2 INSTILL 1 SPRAY BY NASAL ROUTE ONCE FOR ONE DOSE INSTILL 1 SPRAY BY NASAL ROUTE ONCE FOR ONE DOSE SOLD: 01/22/2021 [facility] 100 mg 01/17/2021 12:00:00 AM EDT tablet 30 TAKE 1 TABLET BY MOUTH DAILY TAKE 1 TABLET BY MOUTH DAILY SOLD: 01/17/2021 [facility] 4-1 mg 01/17/2021 12:00:00 AM EDT film 4 PLACE 1 FILM UNDER THE TONGUE DAILY FOR 4 DAYS,MAXIMUM DAILY DOSE = [address] 1 FILM UNDER THE TONGUE DAILY FOR 4 DAYS,MAXIMUM DAILY DOSE = 1 FILM SOLD: 01/17/2021 [facility] 8-2 mg 01/17/2021 12:00:00 AM EDT film 4 PLACE 1 FILM UNDER THE TONGUE DAILY FOR 4 DAYS,MAXIMUM DAILY DOSE = 1 PLACE 1 FILM UNDER THE TONGUE DAILY FOR 4 DAYS,MAXIMUM DAILY DOSE = 1 SOLD: 01/17/2021 [facility] 45 mg 01/17/2021 12:00:00 AM EDT tablet 30 TAKE 1 TABLET BY MOUTH NIGHTLY TAKE 1 TABLET BY MOUTH NIGHTLY SOLD: 01/17/2021 [facility] 150 mg 08/23/2020 12:00:00 AM EDT tablet 2 TAKE 1 TABLET BY MOUTH EVERY 3 DAYS FOR 2 DOSES TAKE 1 TABLET BY MOUTH EVERY 3 DAYS FOR 2 DOSES SOLD: 08/23/2020 [employer] Metronidazole 500 MG Oral Tablet METRONIDAZOLE 08/23/2020 12:0 0:00 AM EDT tablet 14 TAKE ONE TABLET BY MOUTH TWICE A DAY FOR 7 DAYS TAKE ONE TABLET BY MOUTH TWICE A DAY FOR 7 DAYS SOLD: 08/23/2020 [facility] 300 mg 08/23/2020 12:00:00 AM EDT capsule 40 TAKE ONE CAPSULE BY MOUTH FOUR TIMES A DAY FOR 10 DAYS TAKE ONE CAPSULE BY MOUTH FOUR TIMES A DAY FOR 10 DAYS SOLD: 08/23/2020 [facility] Fluconazole 150 MG Oral Tablet Fluconazole (Diflucan) 150 mg tablet Fluconazole (Diflucan) 150 mg tablet 08/22/2020 10:30:05 PM EDT TABLET 150 MG ORAL active [facility] Fluconazole 150 MG Oral Tablet Fluconazole (Diflucan) 150 mg tablet Fluconazole (Diflucan) 150 mg tablet 08/22/2020 10:30:05 PM EDT TABLET 150 MG [facility] Clindamycin 300 MG Oral Capsule Clindamycin Hcl Clindamycin Hcl 08/22/2020 10:28:40 PM EDT CAPSULE 300 MG ORAL [facility] Clindamycin 300 MG Oral Capsule Clindamycin Hcl Clindamycin Hcl 08/22/2020 10:28:40 PM EDT CAPSULE 300 MG ORAL [facility] Metronidazole 500 MG Oral Tablet Metronidazole (Flagyl ) 500 mg tablet Metronidazole (Flagyl) 500 mg tablet 08/22/2020 10:28:32 PM EDT TABLET 500 MG ORAL active [facility] Metronidazole 500 MG Oral Tablet Metronidazole (Flagyl ) 500 mg tablet Metronidazole (Flagyl) 500 mg tablet 08/22/2020 10:28:32 PM EDT TABLET 500 MG ORAL active [facility] Amoxicillin 500 MG Oral Capsule Amoxicillin 02/23/2020 05:00:00 AM EST 1.0 Capsule Oral active [facility] ([place] [facility]) Doxycycline Monohydrate 100 MG Oral Capsule Doxycycline 02/23/2020 05:00:00 AM EST 1.0 Capsule Oral active [facility] ([place] [facility]) Fluconazole 150 MG Oral Tablet [Diflucan] Diflucan 02/23/2020 0 5:00:00 AM EST 1.0 Tablet Oral active [facility] ([place] [facility]) Fluconazole 150 MG Oral Tablet Fluconazole 12/13/2019 12:26:06 PM EDT TABLET 150 MG ORAL completed [facility] Fluconazole 150 MG Oral Tablet Fluconazole 12/13/2019 12:26:06 PM EDT TABLET 150 MG ORAL [facility] 800 MG Oral Tablet Ibuprofen 12/13/2019 12:24:04 PM EDT TA BLET 800 MG [facility] 800 MG Oral Tablet Ibuprofen 12/13/2019 12:24:04 PM EDT TA BLET 800 MG [facility]AL [facility] 800 MG Oral Tablet Ibuprofen 12/13/2019 11:31:42 AM EDT TA BLET 800 MG [facility]AL [facility] 800 MG Oral Tablet Ibuprofen 12/13/2019 11:31:42 AM EDT TA BLET 800 MG ORAL [facility] Providers Payer name Policy type / Coverage type Policy ID Covered republican ID Covered republican's relationship to dexter Policy Dexter Plan Information [employer]BS OF [place] 306/[id number] GEHA [id number] MEDICAID [id number] Self [id number] 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 U [id number] Self [id number] MEDICAID [facility] [id number] SP [id number] COMMERCIAL GENERIC U [id number] Child [id number] Medicaid of [place] Other 0 [id number] Self 0 Medicaid [facility] Other [id number] Self Medicaid [facility] Other 0 [id number] Self 0 [place] Other 0 [id number] Self 0 [place] Other 0 [id number] Self 0 ESDRSA [id number] SP [id number] ESDRAS UNAVAILABLE SP UNAVAILA BLE [place] Other 0 [id number] Self 0 [place] Other 0 [id number] Self 0 [place] Other 0 [id number] Self 0 [place] Other 0 [id number] Self 0 [place] Other 0 [id number] Self 0 [place] Other 0 [id number] Self 0 SELF PAY ESDRAS [id number] SP [id number] ESDRAS I [id number] Self [id number] [employer] [id number] Self [id number] SELF PAY ESDRAS [id number] SP [id number] ESDRAS [id number] SP [id number] SELF PAY SELF PAY ESDRAS [id number] SP [id number] SELF PAY ESDRAS [id number] SP [id number] ESDRAS [id number] SP [id number] SELF PAY ESDRAS [id number] SP [id number] 100 SELF PAY SELF PAY ESDRAS [id number] SP [id number] SELF PAY ESDRAS [id number] SP [id number] ESDRAS [id number] SP [id number] SELF PAY SELF PAY ESDRAS [id number] SP [id number] SELF PAY ESDRAS [id number] SP [id number] ESDRAS [id number] SP [id number] SELF PAY SELF PAY ESDRAS [id number] SP [id number] SELF PAY MEDICAID M [id number] Self [id number] GEHA O [id number] S [id number] SELF PAY ONLY NONE SP NONE MEDICAID HEA [id number] Private Insurance Commercial [id number] Family Dependent [facility] B[facility] WORKER DEP UNAVAILABLE SP UNAVAILABLE GEHA-ASA [id number] SP [id number] GEHA COMM [id number] CHILD [id number] GEHA COMM [id number] 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 [id number] CHILD [id number] [place] [id number] CHILD VYA [id number] [facility] [employer] [facility] [id number] SP [id number] [employer] N/F [employer] CLM#[id number] SP CLM#[id number] SELF PAY UNAVAILABLE SP UNAVAILA BLE AETNA COMM [id number] CHILD [id number] [employer] [place] BC [id number] CHILD YOU [id number] [place]BS [place] WATN PPO 302/[id number] MO2 [id number] AETNA HEALTHCARE [place] [id number] FA2 [id number] GEHA - ASA [id number] CH [id number] MEDICAID GME [id number] S [id number] ESDRAS CARE HEA [id number] S [id number] GEHA - ASA [id number] 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 PLAN [id number] MEDICAID M [id number] S [id number] Problems, Conditions, and Diagnoses Code Display Name Description Problem Type Effective Dates Data Source(s) F11.20 Opioid dependence, uncomplicated Opioid dependen ce, uncomplicated Diagnosis 02/11/2021 03:08:[address] [facility] fol fol Diagnosis 02/11/2021 02:17:[address] [facility] consult consult Diagnosis 01/21/2021 12:51:[address] [facility] addiction problem addiction problem Diagnosis 01/17/2021 07:37:[address] [facility] Z00.8 Encounter for other general examination Z00.8 - Encounter for other general examination Diagnosis 10/02/2020 11:30:[address] [facility] F11.10 Opioid abuse, uncomplicated F11.10 - Opioid abus e, uncomplicated Diagnosis 08/22/2020 08:19:[address] [facility] N89.8 Other specified noninflammatory disorder s of vagina N89.8 - Other specified noninflammatory disorders of vagina Diagnosis 08/23/19 21 08:19:[address] [facility] L02.01 Cutaneous abscess of face L02.01 - Cutaneous abscess o f face Diagnosis 08/22/2020 08:19:[address] [facility] L98.9 Disorder of the skin and subcutaneous ti ssue, unspecified L98.9 - Disorder of the skin and subcutaneous tissue, unspecified Diagnosis 08/2020 04:01:[address] [facility] B16.9 Acute hepatitis B without delta-agent an d without hepatic coma B16.9 - Acute hepatitis B without delta-agent and without hepatic coma Diagnosis 02/23/2020 07:57:00 PM [facility] [id number] Opioid abuse Opioid abuse Complaint 08/22/2020 04:00:00 A M EDT [facility] ([place] [facility]) [id number] Tobacco user Tobacco user Complaint 08/22/2020 04:00:00 A M EDT [facility] ([place] [facility]) Surgeries/Procedures Procedure Description Date Indications Data Source(s) Alcohol and/or drug assessment 08/22/2020 02:30:00 PM EDT [facility] ([place] [facility]) Urine Culture 08/22/2020 12:00:[address] [facility] [place] 08/22/2020 12:00:00 AM EDT [facility] Microbial wet smear (procedure) 08/22/2020 12:00:[address] [facility] Urine Culture 08/22/2020 12:00:[address] [facility] [place] 08/22/2020 12:00:00 AM EDT [facility] Microbial wet smear (procedure) 08/22/2020 12:00:[address] [facility] Results ID Date Data Source [id number] 02/11/2021 06:22:58 PM [facility] Name Value Range Interpretation Code Description Data Lashonda rce(s) Supporting Document(s) Buprenorphine [Presence] in Urine Negative [facility] (NOTE)Positive results above the cutoff of 10 ng/mL are presumptive andunconfirmed. Confirmatory testing can be ordered at [place] [id number] within 5 days of collection. ID Date Data Source [id number] 02/11/2021 06:22:58 PM [facility] Name Value Range Interpretation Code Description Data Lashonda rce(s) Supporting Document(s) Amphetamine [Presence] in Urine by Screen method Negative [facility] (NOTE)Positive results are presumptive a nd unconfirmed;confirmatorytesting can be ordered at the [facility] [place] [address] at [phone] within 5 days of collection. Benzodiazepines [Presence] in Urine by Screen method [facility] Cannabinoids [Presence] in Urine by Screen method Negative [facility] (NOTE)Positive results are presumptive a nd unconfirmed;confirmatorytesting can be ordered at the [facility] [place] [address] at [phone] within 5 days of collection. Benzoylecgonine [Presence] in Urine by Screen method [facility] Methadone [Presence] in Urine by Screen method Negative [facility] Opiates [Presence] in Urine by Screen method Negative [facility] Oxycodone [Presence] in Urine by Screen method Negative [facility] Fentanyl+Norfentanyl [Presence] in Urine by Screen method Negative [facility] Service comment [facility] Results below the indicated cutoff (ng/m L), are reported as"Negative." Note: for medical purposes only; not valid for legalor employment testing. ID Date Data Source [id number] 02/11/2021 02:58:39 PM EDT [facility] Name Value Range Interpretation Code Description Data Lashonda rce(s) Supporting Document(s) Progress Note [facility] SJSMRc7wSqYGApCr63/IEGdaRUFlq3PsIUpcWEe2NUirAQHoU8MtEUJ3iD9lZEN6QKaUSjIzWtErWPG6 lbm [file] AgICAgICAgICAgICAgICAgICAgICAgICAgICAgICAg CTSxVBCpYOUzFFVrGHBqDR9XJCKxTDNuZLEjNUSlXZChMBXeWLPrUNArKRMyEOHxUVImZKHnYFOkJRWo TADaNTWbTOQxIEAoFUKeTTWoGGDcSJPsCNXtYUUxIQKbLNXiLWNgHZUvIIJgTLQmHPTlJDKnEFFrDF0Z ICAgICAgICAgICAgICAgICAgICAgICAgICAgICAgIC AgICAgICAgICAgICAgICAgICAgICAgICAgICAgICAgICAgICAgICAgICAgICAgICAgICAgICAgICAgIC LcAKZtBIArST7QLKLuFXVvTJShSLImOKNwVRWnILBvFXGlWOKiEGPtIJVaSLOcJZReELRjQAQkVMBrCP AgICAgICAgICAgICAgICAgICAgICAgICAgICAgICAg GDSdLFWlTUEbSBCgLXJtSHDiOI7ZGKFwTOEjEYXkXCDzRZShRIQgCMOgQVZcPVUkMQLaRFVtMPTlTJEf ICAgICAgICAgICAgICAgICAgICAgICAgICAgICAgICAgICAgICAgICAgICAgICAgICAgICAgICAgICAg LE8UCGEuKDDfKQOpWYQoZMPhSRKyBQTdKURgBQEaDB AgICAgICAgICAgICAgICAgICAgICAgICAgICAgICAgICAgICAgICAgICAgICAgICAgICAgICAgICAgIC JvNTIfBSWuOETzFN3THKJjNAMnHLRjFKFeGEIiLDWhAJLyOGNoCFCoSTLvZFBnNQFmPWCmKRBdDEQrWV AgICAgICAgICAgICAgICAgICAgICAgICAgICAgICAg DUDlDOVnAYNsHPAbXIVmNPCiDTArVT9XPBUeIFFiEJSlUVCyEQYxMWBnOGLlHPHyNXRvOGJiGCJkJQNu ICAgICAgICAgICAgICAgICAgICAgICAgICAgICAgICAgICAgICAgICAgICAgICAgICAgICAgICAgICAg QAAsKX1LXBQdSXWaJRBnGLEoFTUqVNDgCVIoZAOvVZ AgICAgICAgICAgICAgICAgICAgICAgICAgICAgICAgICAgICAgICAgICAgICAgICAgICAgICAgICAgIC JcLBAxWKZkVWQyKQMuNU9WBAQuQGMpPRUeFEVdTBGlLGHwXBAeXWEkFONcEJObLMCoEHWiWHSlUFOvSD AgICAgICAgICAgICAgICAgICAgICAgICAgICAgICAg TZCvDXNpUMFjXGDvARApPUAiSTEwMJZqJM0WPU45aICub1O4QBKfCN9btoo/Jk7FMHkoydLprKEwXV9P WgQkXV2roo5CXcWcBV8hww0OYBpNPvQuK7S8gADrWRUnLHSHYeEhQ03pZJlvCt91XMluLOEzDcKaPGj0 Vn0PDzTjI6nzPCJvPuR6VZEoCiU2KJTfAsQ7VUNbCs YlWQasPQ8Pz7IyaKGcQNe+Lh9VNV5bf0WrCWmcEwCsPT7mot2BKHdVHrIoZ1VyuwL8PXP7WIIaPq1XIF EaHDRysOYsKxTxXJFNArXnB6FfsG89BNLGYm9+YJzndjTqFbgDOjT2UWUxz4VzUGj4VD2EGHYvUPu2sV CuJHJhK3Dhn5KjBq07HAAtLirtOkfseCKwKGURVCZq xPNeTEVNRUOfpJLjDT4vNV4pPMEyQSVbIqJzDGTLQC3ABSTeZSTrwETzMGJmWOSYFW0HZLqrCGF3GSQe tvXxsYWlNRsvWY3YJCOioaHmHiPxHOUGDAk+Uq4KRP4ut4RlLLlzADZeNQ4ann0JMUyPWjKaM8T2qSZm V2Y9LSdkGm7FZLXfHSLiGeQaDOHVORpeSP4HDE1lis K1UW3OjJJcWZYoTEUrdJKyFVx4B92vaFJgIAxbKJ9ARGY+Nate+Uw2IIFLwEFKwMCLiAyWkPFUEBbRtY4 AiX3JEw6PiJ3NlZW75mHaehgRmRGfzYF2HQC0dGHOuEKSLBK8UlJOwfX8rdeTsUcEyOLVWPkVdQ17kaS GtDUHzHIX1YLGeWz5WCCYhQ5HygnUyvKlvfrIgJEBd QJHOOX4BQQejxzAmfNHytUhrRL04nSqeSE3GQf0OHxIsRO1txu7LiSHxQf5LDYSpYT0IKIOwPMQsBZKg PUO4GTCqErBeFEqaBBUzFMIlDLZ3KRMtZTPrIZ7EDhMaTIGzLmY3LAtuGSTgFXZtpc1BUPBfRLAxExnl ZnEgEUKzPOSzHUujFSGeRAItMZH7TFXlSIAjQA8QCn VsIYApEKYcELqoKPEhFPTuqb1DHVDnQOIaBiKeFsJxUIEtNYFnRPohDDBhCXF2LGw5HVPbGOSmZV8IIw BsBNGvPQXfFBxwIRRkQEMclt1MMVXuRBHkNXYcMiJgIXXtWNTfJTqdXDXqMSO7HmO4FXCsCVVjWP8EYd LxPCMeYCs9VpbhSASkJTUkmc0IAZPpWTDtXHx8KVNb HWBpMHRfLIgfBHMxYFV2OGI8WHAfJTJoTV4DWcOlCWQrSHY6EUJoNZBsFWBklv0NAYKaGJLlKCKcMJIz SJDsZOIiMYtrLSGlYUNlXsN5KDNcQVRaPJ3RCbZcVJGyWaG7KkQgIJYyBGSuas5ZCOBdBWOvOzF6VQWs XFGtXBIdMKpkXJWnLUZhNhpsJCLkUDRfSY5IYwBzKL MwTxG6JpToMRXyYORouk0FOCLjLKBqWgX5EqOoHILoIRMwZSnqUWBoAZI3GjAhWLDgYWVtUU5ZUkYbVG NxXeI0BHfhUMIyNJJtjo0ABECwRISgBCx9DwQjNNLpKHLiCOgaATWjPZG2KjexLQPfLOBuYN9TIbZlGZ SeCwU8JPEmHKIoIRHoli8DEJVkQAReVkssHZQgSCJk HPVyAUjiHVNqCQQ6TWG7STGoRHStAF0NMaXcMSguZUMYWux6CHocC6d9GSUsFC8VF9Uqy8RbHmvlBKYC JAawTJ5jppZbBOUeMd3VJ4aWFqtxPXOzGsM0EOTiYHtbNKCmFDHoLpOxPNfxQpOnR5EcPT3bEHLlNrDo LxNyUdA7LAN2KiA4GqQ8WURpMLToN5MkKtLoBgLm UG1SUj1PYgB0QVZ0sWEzSp1GSpowMQxSYqDlUD7JHWv= ID Date Data Source [id number] 01/29/2021 12:22:55 PM EDT [facility] Name Value Range Interpretation Code Description Data Lashonda rce(s) Supporting Document(s) Progress Note [facility] PKLWGf9dYeNANhMf26/TCPuqESAjp5QcSPxaAUp7TSwyTJBgH1GdYXF7bE3oGFZ3EAhUFyNvAiQhEWZj lbm [file] ICAgICAgICAgICAgICAgICAgICAgICAgICAgICAgICAgICAgICAgICAgICAgICAgICAgICAgICAgICAg ICAgICAgICAgICAgICAgICAgICAgICAgICAgICANCiAgICAgICAgICAgICAgICAgICAgICAgICAgICAg ICAgICAgICAgICAgICAgICAgICAgICAgICAgICAgIC AgICAgICAgICAgICAgICAgICAgICAgICAgICAgICAgICAgICAgICANCiAgICAgICAgICAgICAgICAgIC AgICAgICAgICAgICAgICAgICAgICAgICAgICAgICAgICAgICAgICAgICAgICAgICAgICAgICAgICAgIC AgICAgICAgICAgICAgICAgICAgICANCiAgICAgICAg ICAgICAgICAgICAgICAgICAgICAgICAgICAgICAgICAgICAgICAgICAgICAgICAgICAgICAgICAgICAg ICAgICAgICAgICAgICAgICAgICAgICAgICAgICAgICANCiAgICAgICAgICAgICAgICAgICAgICAgICAg ICAgICAgICAgICAgICAgICAgICAgICAgICAgICAgIC AgICAgICAgICAgICAgICAgICAgICAgICAgICAgICAgICAgICAgICAgICANCiAgICAgICAgICAgICAgIC AgICAgICAgICAgICAgICAgICAgICAgICAgICAgICAgICAgICAgICAgICAgICAgICAgICAgICAgICAgIC AgICAgICAgICAgICAgICAgICAgICAgICANCiAgICAg ICAgICAgICAgICAgICAgICAgICAgICAgICAgICAgICAgICAgICAgICAgICAgICAgICAgICAgICAgICAg ICAgICAgICAgICAgICAgICAgICAgICAgICAgICAgICAgICANCiAgICAgICAgICAgICAgICAgICAgICAg ICAgICAgICAgICAgICAgICAgICAgICAgICAgICAgIC AgICAgICAgICAgICAgICAgICAgICAgICAgICAgICAgICAgICAgICAgICAgICANCiAgICAgICAgICAgIC AgICAgICAgICAgICAgICAgICAgICAgICAgICAgICAgICAgICAgICAgICAgICAgICAgICAgICAgICAgIC AgICAgICAgICAgICAgICAgICAgICAgICAgICANCiAg ICAgICAgICAgICAgICAgICAgICAgICAgICAgICAgICAgICAgICAgICAgICAgICAgICAgICAgICAgICAg ICAgICAgICAgICAgICAgICAgICAgICAgICAgICAgICAgICAgICANCjw/kNIuG0dtkADssvF1Y7pwJc1T Wl5IHG4fc5KnYCHhHHhzjkHdNnuZUrRbRPBlUwvQTh o4XBbmLN7WnPEvC6WtO7OjHIpyUV2ZNHJaBXUwtHEvWAMfSQYwCeQ2YNQcECzuAR0AcHOoLMilPIJnST UhPDOqUFIrHVIwJAQTNUHzJNNhTxRsXKpmLO8Kt2ZgwXR7EWe+Un4YBS1yy9YfHLtyPOVfKM2kjm1AIK yMDeAfG0ZavnG8FZG0OYYhLe2LXWIaPTVpdIEzTLYt PPFPBcLxK6XgmD38IOWZPa6+GPwrpbRlCdsBGnW3TSWwv6BqPNz2IN5NQQJsSMo1bBTvPUYzP8Bse7Gw Us72UKBdMzpwUqzqwTUfBSXANZAroSMmSMECKLIgdFZpAV3jVy4xYDPmAPPbMsNcBTXOPV2YWRRcBFBz lUNcETQlMBIMIH3TLVwvLBW6JFDfclZzyVGvPDlhNG 9QYXJlbnQgMzQgMCBSDQo+Xm7QAZ4dm9XnLCs6XFUne1OdYRn5TF5NHWFyBJayHFVoJZ2di6WtX5I0Xa Y6dNHlK1digsitN4YdhwRrwbSjWUThTXQmCN3TKK3QNH1KQCXzSSglAG2NULS6VTp0YAOuHPS3BMPhEn EkQsBcQZ1UJAJaHDE9AY2NKU9NRuqvF3YDKXtrgGEj ihwpW9KelS7hmvRwQctlIVp9rX3sqTG1VL3emL56in4rw5ywQ4CmuIbmtiznG9EmpH1oH152NHAlHtZk TqDossfiNz1wQSq+Db8FJU2gj4LaQCtsEtYwDB2mft8NAJyGOfTxC2A3tXLxY2X9PKmiVg5ZFSZhRYKa GiOoKUWAICjvIR2UES8aqeD1TF8ZqTNrRJHiZMVlhL DqEJf3B40hfRZcNDfxVJ5JRWD+Nate+Wv6AMQBbEFRsKQMfIwMrMAAAQrPsK7VmB8RCr6YsV0LcRW52gQ lodsObTJhnJC1TEQ6bRCCwWEPVAG4RcXFvyQ6vziRoKLUmVLJCHmJmB14dsLQzXOPuIKUwZEOjOd7CGR ZwP5MxvoRgjMetifXaVPDwMIWJOV8TURqgexUdiAGx xCefML99gThsZW9XNl2UNpYoFK1mvg4SoEGqTt7YCMOlJl9EDSQuGRIkAOPuZGY3EUTcRsYaIWfbAQUg DYTyICN6DYKcRJCbDC5CFyVrCQXyDoSaZoUmBVJgTAIxhl0RJSWlPRVzPGm3MhFfBCDyAMNpVLqlSCBa CGBgSUJ9NDEdQAFdDM5UAyPnUQUhBBN0AFRmGJYnHR Smxg6IMILuEHDqMZBoOxAlREMuFDJlBWfiIAHlAINgTjPyABReIWIuVO5SAiCzIHFiPZP4CTIsMPEwEA Neha7EUVVaZBSlEsxwVzQcNQBiTGWrNLuvSJLtAAT3OHVjUMGnHJBmUL0XEhPxVOTjNLd0IvytQSArOC Xhmd8NYZOwXOEdRCu0FbEpSSLdJLKcQIkeBFUtUQSk ABhjTFGzRTUxJX5TEsJvNVTpXMAeFLSoLLHzJBIacr3CDDPtFKUmLwB4KJGdRTRsYJZePYuuPDJvKQLh TSYnMHDzTJCbMM6KQkEsWOJuVKAwVEGqDOWuFCTeln1TEHEgXCBvLuO0RUNsCGEaNDUtYJgqJKShRBSt TwkfSMLhRDTmNI0TDkMiOSKtSfTnXCLrWSHbRDMqce 9MYJNcJOWlJMGiLcKxASDcQPCkISnrLPBxGIR2FpD2VUXdZUBrJQ6KIrYcFZZwIiV5AZDjSWUrQBTxlb 8HPFCkYQJdTfOmTvReTMBnBDZnMJixEFYwLYNqRSv0NJIsVRBfUA4CXwKeSMMwJaYsOQTgEMXxROSkfw 0UMSSkEGTdHFNzIlQtOEDpUHLqBJkdTVBbKUTfBnJ5 NCPnLKTvZU9XHwTrAMKrNpF6EBJdVVXsEXMwks5LEKNgALBtGkj4FPRzYZPhRHIyNDwoRBTiJNNwZFU9 GXAmTBXnYI7EOpWgNWTiPgPjFRWkKDCgGLDhkk3OFAAiETQtGnN1JfCrFRNfRGZrVWsaZRJeWFC8AZS0 OGHkYNNxEX1OFrGuMNXbQxOgPhCuHZKnVBOkzo1SKH ZdURFlKEWiWAPcTGYySNUhFVd5apDhaQAjFNb7IH4RA7DxnbEyXhqEGs8Xa340SRR3CGErBg8GG1xxXq 7oRTIpACYMAk0DPIc4SYigWvi2HOCsJmpzCWU6W5EuOZVoO1CoYpUaXhC2VPD+RCm3WZCwTGHnNEKyQ6 ZiVKAmCAW6AICvFuHgS5GeUBL7Bo9tPJRTXl6+GDrbkHBygNdpSHDUDzR3Iws6IKapNHMGIm9F ID Date Data Source [id number] 01/29/2021 11:16:17 AM EDT [facility] Name Value Range Interpretation Code Description Data Lashonda rce(s) Supporting Document(s) Progress Note [facility] BFZRWg1lTlEPJwHi35/FEJuvCQAcq9QaPGevPLa2DVloUNPyA8AiMOH1rD1eEKR7MPqWNcUrFaUaLVKp lbm [file] MDAzMTQxNSAwMDAwMCBuDQowMDAwMDMxNzQwIDAwMD YnJA2ZJqCwEGPtQoF5FTuaQGCqHKQswx5TIDOpVJBqNdS2PPFnPHHoGRGkXWvmVRJkJKKxZdJ0GEChGC AzVJ9OQrCeNQVhKuCmLIryJURkOJJmrv0EXJJwJRGvSdS7UqVmZWOeZWRrNHfkWJDvOEBzCbZ1SVInNS IkJO5DLtEkWMPoOxVfCqVhXHXxIXRmct1GYNXyRCKo OFC4HmOiWAOkXGHfGOcaQJPvXFG5TiI0ZERlZMAlGG1AKpAsZECzGfZ2OuYjMBNtSIAjzt1JjUWldRha mq5RFNyQAb8WkNlbRTK8FGnmVt6wjKEuGMBhKHLBMi5YftMsUSUkPKTHCFknVAUqJGikMXI7LJFmERGj XIYaDOgbCDIlDPQ2BpS8MbM0TAZlCdH4P4U4SOkiJ1 VjUzT2WCDqXmG9JDZ5DeUaTeifHffhFVX+IT2cCVs+Lt6Py2YoobQ3vsIjGJnuCzNaOG2GUPXAJ9YOCu == ID Date Data Source [id number] 01/23/2021 03:43:23 PM EDT [facility] Name Value Range Interpretation Code Description Data Lashonda rce(s) Supporting Document(s) ED Provider Note [facility] AGNKNw4yHiONLrXx11/VQLfyZSZsk5NqTMpnSKj7CWxwLMRsG2WhCAU5xY0zOLF2LNdYHcFvAcAtZFG8 lbm [file] R4JMV8HpH2WgHePD8RDg6MImH0SGR8zMGyAu6AXEC3HFDSFkVdET4QTPj= ID Date Data Source [id number] 01/21/2021 05:36:28 PM [facility] Name Value Range Interpretation Code Description Data Lashonda rce(s) Supporting Document(s) Buprenorphine [Presence] in Urine Negative [facility] (NOTE)Positive results above the cutoff of 10 ng/mL are presumptive andunconfirmed. Confirmatory testing can be ordered at [place] [address] within 5 days of collection. ID Date Data Source [id number] 01/21/2021 05:36:28 PM [facility] Name Value Range Interpretation Code Description Data Lashonda rce(s) Supporting Document(s) Amphetamine [Presence] in Urine by Screen method Negative [facility] [Presence] in Urine by Screen method Negative [facility] Benz[facility]gonine [Presence] [facility] Methadone [Presence] in Urine by Screen method Negative [facility] Opiates [Presence] in Urine by Screen method Negative [facility] Oxycodone [Presence] in Urine by Screen method Negative [facility] Fentanyl+Norfentanyl [Presence] in Urine by Screen method Negative [facility] Service comment [facility] Results below the indicated cutoff (ng/m L), are reported as"Negative." Note: for medical purposes only; not valid for legalor employment testing. ID Date Data Source [id number] 01/21/2021 02:12:23 PM EDT [facility] Name Value Range Interpretation Code Description Data Lashonda rce(s) Supporting Document(s) Progress Note [facility] GJVNMu1zSlIVWjAp69/CVNvwSKTwq0HnYTchWZt4HSowKMNyJ9UvRYX4cJ3hXSX1DKpXFrWdCiOnLDU0 lbm [file] ICAgICAgICAgICAgICAgICAgICAgICAgICAgICAgIC AgICAgICAgICAgICAgICANCiAgICAgICAgICAgICAgICAgICAgICAgICAgICAgICAgICAgICAgICAgIC AgICAgICAgICAgICAgICAgICAgICAgICAgICAgICAgICAgICAgICAgICAgICAgICAgICAgICAgICANCi AgICAgICAgICAgICAgICAgICAgICAgICAgICAgICAg ICAgICAgICAgICAgICAgICAgICAgICAgICAgICAgICAgICAgICAgICAgICAgICAgICAgICAgICAgICAg ICAgICAgICANCiAgICAgICAgICAgICAgICAgICAgICAgICAgICAgICAgICAgICAgICAgICAgICAgICAg ICAgICAgICAgICAgICAgICAgICAgICAgICAgICAgIC AgICAgICAgICAgICAgICAgICANCiAgICAgICAgICAgICAgICAgICAgICAgICAgICAgICAgICAgICAgIC AgICAgICAgICAgICAgICAgICAgICAgICAgICAgICAgICAgICAgICAgICAgICAgICAgICAgICAgICAgIC ANCiAgICAgICAgICAgICAgICAgICAgICAgICAgICAg ICAgICAgICAgICAgICAgICAgICAgICAgICAgICAgICAgICAgICAgICAgICAgICAgICAgICAgICAgICAg ICAgICAgICAgICANCiAgICAgICAgICAgICAgICAgICAgICAgICAgICAgICAgICAgICAgICAgICAgICAg ICAgICAgICAgICAgICAgICAgICAgICAgICAgICAgIC AgICAgICAgICAgICAgICAgICAgICANCiAgICAgICAgICAgICAgICAgICAgICAgICAgICAgICAgICAgIC AgICAgICAgICAgICAgICAgICAgICAgICAgICAgICAgICAgICAgICAgICAgICAgICAgICAgICAgICAgIC AgICANCiAgICAgICAgICAgICAgICAgICAgICAgICAg ICAgICAgICAgICAgICAgICAgICAgICAgICAgICAgICAgICAgICAgICAgICAgICAgICAgICAgICAgICAg ICAgICAgICAgICAgICANCiAgICAgICAgICAgICAgICAgICAgICAgICAgICAgICAgICAgICAgICAgICAg ICAgICAgICAgICAgICAgICAgICAgICAgICAgICAgIC AgICAgICAgICAgICAgICAgICAgICAgICANCjw/hFBsG7orgRDvyaF8N4dyCp7DWu6ZMA8yr4VpEIJnDM dbkqGbKlvHSaJeXBFgOpfNHrm5AWrzLG8OnJGkK0YhZ3FbTKtoMD3UKQOyCRLyxXDoODAhYTFqOyL3VM NjQFvhBW9QcODxPRacSDXbJWZoXrQgJERjGTQqOWRD ZMZiWHTfPxEtIBHfOJWuWR7MZHPwS228upQkKV6CQx8PPcLzER5vfc7SWvRmGURzNhcGYuc0VOgzGO7H pBQqsEUbSvAhYSGAKaFpG6wfr9YlEcnzFJDDOQhjMD0Xo0XavSAjXDs+Dg9VRB8xw8HvESgeYhEzBC6k pg9GJHkGAlCrT4WbmOksGHPix3qyCXXsVB8qkNAcAK O4NVYby5psqfUmRrVRk9vtojjjHPMiAMSlYRRhEQ2aJNQvKSUfIyVzZMEALO9QTXSoPNVrlTOhZSLmUX LNZR2CEQeuEKZ4NCKyajKojESsFHcvFR0PIBNjemEkLfEvKDPXIEt+Ot1TED7oa0BtDLe2OTWub0XtEL b8CL7SXMXtWMadTQZoHA1cy0MfT9L1QdK8kOSxW5lg caexQ4NkixLicsPuDJZeQPLcAT1UWV8HOF9ISZNtSHrwVJ7XISZ5ZNm3OKZhUrGhKCNdTwK5FnkxZD8M VOPnXOU2BI4IZQ5UCeddN8ZKVKtyxXJxuflwI9XggR1elsLpOzfjJDw5rL5lqQG8IX4xhK69er1uf6tm U8HoiFnyhqdxT4KsvF6vG144KQFpKdAgPxDswlhmJo 4gDQo+Iz8VXC9pu7BrTRewVVWgUU8jnq8MBXcKWuGoC8H3hDLwQ5B4VXkdFx1PQCPyYJVgBgHlUEYGJH rvXO2AUY0iyzN7JO1AkMUkMBGnEAWkpSOwWWi8E36nwNViNAhtEO7LAPS+Nate+In5PIJDeKQYjLTOwKs OfIRDVGcZgT0WoY5WLo0QtN4EqND75qNjtqpDoERyp AU9FHR7kZZSiRODXHZ9CpXQriW1ygcQqGrSoEJESEgPfT61fsLRvFHUlUUD7LRQtTt5SDOAfC1NeyfSd gVjxjhBfRNBxONULJW5DWRbcetNzwWWpgLviKG17rPrlLN3WPb1CUzPfPG5uni1ZlPHzJn8WLAIuPM0J SPUuASJkLRUsEMW3WDGbPcIhZQtmUOSpUFUrTSZ7SO ZzHYXwEG6MFhNvPOReXpD7RGFqICPfLYTamh9GWAVgEDZcXQwbGTQzIIQwFRDwYDjbSIKqVFTtDMK2ND AkUPGbGF0MKyOnKQVpDMU5TNNfGPBvJPKgrc4OBMDqCRCpAVC8TLCmUTScHOXtKJyiFWHyXVQ0WJK3UK LjZBJiTV3WAtOkILTsXcnbWIotARUoOSZvyu5XJDZh SSVmDfr9ZtVgOSHhUIPiRNtpJRAkOVYdLul8JEKnYKOhLA5ILeOuEJKbUYS0VQTxYFHeMQInpl0HZYCn YWHwPaycUMCwRQGrXYVzIImqPBTgMPH8DWQ5DKQaVXYeIR3VMjBtNOVhTRB1PDGtUMNtNGQllx9SEQCz SZKeUEr1PrSaVDXaLEPoXUdzKDZnWVB7XuL2TBHaTW KhHJ3MObPhWWYxJZU6RBGcEPSkYBErmp2ZQZKoBMCmUhJxYdPqOAToXGAeBPshOCPpMVY5JXs4VMNwOV LmUC1EDdWcCHErPGeeAFzqJAVrVOPrkc4HJAAoPWHyZaI9TaXfBUWkYHAmVQhnSLAnLOR7QCC1RWBvDP SzXO5KCjIgICDnBlifTPPoVATvXEKrkw2JTZPfGWGr WZB1BTYpULPbKASlOJiqIMFjCVA5VtWjVGGkICGrKH2BQmQsVUJrHeh0KSCqPFMeUINnlk9KTPNsEWTw WDnzYqXjESDtZSOcOVwzMVZiGAS7GJF1NQUhLDAhEG1BDdKnXJIsXiBhQzDcHOTwZQSrfo3OPDGvIDQa RCK9VXYySKGfOOIcRUjcSNFmPFI2RyG5REYxIXEaYU 0TCsPaHEWiEhY6IjHnOHKeCITfpc1BOFCoCZMiDjj7MLHxSNRdBJFgBWkxSRLyDLP0LAD2KEQtENHhQG 4WWpAbBFBaKnksIlVfIKTwIYXblq8UCFIhLHIpALpaNgAbJMJfJOIkDFhqOFXeRQY5NDv1EBLeVPFbWV 5YPoTaHWOfWtkhUAWiSOAvBZEfdi7PqFHgzIyvsb0K UMhZVd0ZmFcfTEH3XGynJr4omILsWMZzAMFQAn5TgfRpCKMfXVKCWSrnDNWsVIT4MLtfSGw3WLJcNFOu KPZ6LkBfNShgZWQsTAfmWBgzXmC5GaH6FJKjQefxCSM4OQU0QKAoH2ZhEdF3EmU3BNFjMSU+RR8nNPs+ Lg0Rc4TflsF6trTgARiwCAY2SO0HAMCZE5OYIu== ID Date Data Source [id number] 01/17/2021 10:55:25 AM EDT [facility] Name Value Range Interpretation Code Description Data Lashonda rce(s) Supporting Document(s) Choriogonadotropin ( test) [Presence] in Urine [facility] NEGATIVE: either no HCG or too low to de tect, <20 mU/mL Specific gravity of Urine by Refractometry 1.014 1.003-1.030 [facility] ID Date Data Source [id number] 01/17/2021 12:36:51 PM [facility] Value Range Interpretation Code Description Data Lashonda rce(s) Supporting Document(s) Amphetamine [Presence] in Urine by Screen method Negative [facility] Benzodiazepines [Presence] in Urine [facility] Cann[facility]oids [Presence] in Urine by Screen method Negative [facility] Benzoylecgonine [Presence] in Urine by Screen method [facility] Methadone [Presence] in Urine by Screen method Negative [facility] Opiates [Presence] in Urine by Screen method Negative [facility] Oxycodone [Presence] in Urine by Screen method Negative [facility] Fentanyl+Norfentanyl [Presence] in Urine by Screen method Negative [facility] Service comment [facility] Results below the indicated cutoff (ng/m L), are reported as"Negative." Note: for medical purposes only; not valid for legalor employment testing. ID Date Data Source [id number] 01/17/2021 04:06:02 PM EDT [facility] Name Value Range Interpretation Code Description Data Lashonda rce(s) Supporting Document(s) Buprenorphine [Presence] in Urine Negative A [facility] (NOTE)Positive results above the cutoff of 10 ng/mL are presumptive andunconfirmed. Confirmatory testing can be ordered at [address] [address] within 5 days of collection. ID Date Data Source [id number] 10/29/2020 12:00:00 AM EDT [facility] Name Value Range Interpretation Code Description Data [facility](s) Supporting Document(s) SARS-CoV2 Rapid Antigen Negative [facility] This lab was ordered by [employer] and reported by [employer] ID Date Data Source [id number] 10/03/2020 01:03:00 AM EDT [address] [address] HEALTH INFORMATION MANAGEMENT ED/UC Physician Report : [id number] Signed Patient: Peg Mcfadden Acct:[id number] Unit: [id number] : 1995 Arrival Date: 10/02/20 Age/Sex: 25 / F Arrival Time: 2330 Copies to: PCP,No Psych HPI/ROS General Chief Complaint: Psychiatric Complaint Stated Complaint: 941-MH Eval Stated Complaint: 941-MH Eval Source: Patient, RN notes reviewed and I have reviewed available Ancillary/nursing staff documentation Mode of arrival: Ambulatory Limitations: Reports No limitations History of Present Illness Initial Comments: 25-year-old female presents for psychiatric evaluation. Patient reports that she had an argument with people she is living with. Police were called. Reportedly the police overheard the patient making suicidal threats. Patient reports that she is not suicidal. Reports that her statements for misconstrued. Patient does admit to having a heroin addiction and is on methadone. Patient reports that she recently got his station with her children. Reports she is notsuicidal. Patient reports that she will go stay with her boyfriend. Related Data Home Medications Medication Instructions Recorded clindamycin HCl 300 mg PO QID #40 cap 08/22/20 fluconazole [Diflucan] 150 mg PO Q3D #2 tab 08/22/20 metronidazole [Flagyl] 500 mg PO BID #14 tab 08/22/20 Allergies latex Allergy (Intermediate , Verified 08/22/20 16:26) RASH/HIVES Review of Systems Review of Systems All systems: Reviewed and negative except as stated in HPI. Psychiatric: Denies Homicidal and Suicidal Social History History of Smoking/Tobacco Use: Heavy Tobacco(>5 cig/day) Tobacco Product: Reports Cigarettes Alcohol use: Reports None Drug use: Reports Current use and Heroin Occupation: unemployed Lives with: Reports Family PMH/PSH Medical History (Updated 10/03/20 @ 00:35 by Tomasa Cook DO) History of drug abuse Surgical History No pertinent past surgical history (Surgical) Family History Other Unknown family medical hist ory Physical Exam Physical Exam Physical Exam: GENERAL APPEARANCE: Well developed, well nourished, in no acute distress. SKIN: Scattered areas of excoriation and track alvarez without signs of infection HEENT: The sclerae were anicteric and conjunctivae were pink and moist. EOMI. ANISA. External inspection of the ears unremarkable. No lesions in the mouth or pharynx. NECK: Supple and symmetric. CHEST/LUNGS: Auscultation of the lungs revealed normal breath sounds without any other adventitious sounds or rubs. Non-tender chest wall. CARDIOVASCULAR: Regular rate and rhythm without any murmurs, gallops, rubs. Peripheral pulses were 2+ and symmetric. ABDOMEN: Soft and nontender with normal bowel sounds MUSCULOSKELETAL: Gait was normal. There was no tenderness or effusions noted. Muscle strength and tone were normal. NEUROLOGIC: Alert and oriented x 3. Normal affect. Gait was normal. Normal deep tendon reflexes with no pathological reflexes. Sensation to touch was normal. PSYCH: Normal affect Course Vital Signs Vital signs: Vital Signs 10/02/20 23:35 Temperature 98 F Pulse Rate 100 Respiratory Rate 18 Blood Pressure 98/56 O2 Sat by Pulse Oximetry 98 Medical Decision Making/CCT Medication/Allergies Review Medication/Allergies Review Home Medication and Allergy review: I reviewed patients allergies, home medications, and new prescriptions Blood Pressure Blood pressure: Pt BP not elevated Medical Decision Making Medical Decision Makin-year-old female presents for psychiatric evaluation. Patient is well-appearing and nontoxic on presentation. Vital signs stable. She denies complaints on arrival. She is not suicidal or homicidal. She is not acutely under the influence of drugs or alcohol. Patient is forward thinking and concerned about a visit with her daughter today. Patient does have a safe place to go. I discussed the patient with her boyfriend who felt that she was safe for discharge. Discharge Plan Disposition Clinical Impression: Encounter for psychiatric assessment Provider stated Dispo: Discharged Condition: Stable Instructions: Stress (ED) Prescriptions: No Action metronidazole [Flagyl] 500 mg tablet 500 mg PO BID Qty: 14 RF: 0 clindamycin HCl 300 mg capsule 300 mg PO QID Qty: 40 RF: 0 fluconazole [Diflucan] 150 mg tablet 150 mg PO Q3D Qty: 2 RF: 0 Referrals: PCP,No [Primary Care Provider] - Patient agreeable to discharge: Patient/Guardian understands and is agreeable to discharge plan Provider in triage note Vital Signs Vital Signs: I O (Last 24 Hours) 10/01/20 10/02/20 10/03/20 23:59 23:59 23:59 Other: Weight 60 kg Vital Signs (Last 8 Hours) Temp Pulse Resp BP Pulse Ox 10/02/20 23:35 98 F 100 18 98/56 98 Date/Time <<Signature on File>> Initializing User: Tomasa Cook DO 10/03/20 0103 Signed by: Tomasa Cook DO 10/03/20 0105 Name Value Range Interpretation Code Description Data Lashonda rce(s) Supporting Document(s) ID Date Data Source [id number] 08/22/2020 10:28:00 PM EDT [facility] Name Value Range Interpretation Code Description Data Lashonda rce(s) Supporting Document(s) HCG QUALITATIVE SPECIMEN URINE [facility] ID Date Data Source [id number] 08/22/2020 10:28:00 PM EDT [facility] Name Value Range Interpretation Code Description Data Lashonda rce(s) Supporting Document(s) HCG RESULT,U NEGATIVE [facility] Reference range is Negative To ensure best sensitivity, first morning void is recommended. Dilute, low specific gravity urine may give a falsely negative result. If is suspected, repeat testing with a new specimen 48-72 hours later. ID Date Data Source [id number] 08/22/2020 09:41:[address] [facility] Run: 08/24/20 0849 INTERFACED REPORT Name: Peg Mcfadden Age/Sex: 24/F Location: ED Acct: [id number] Unit: [id number] Status: DEP Room/Bed: Re08/22/20 Disch: Att Dr: Debbie Stovall MD Specimen #: [id number] Ordered : 08/22/2009/07/2140 Collected : 08/22/2009/07/2122 By: ASHARA Received: 08/22/2009/07/2130 By: PENELOPE Source: URINE CC Specimen Description: Procedure Result - COLONY COUNT Final COLONY COUNT GREATER THAN 100,000 CFU/ML URINE CULTURE Final COLIFORMS MANY Organism 1 ESCHERICHIA COLI 1. ESCHERICHIA COLI AVERY Int --------- --- AMIKACIN <=16 S AMPICILLIN <=8 S AMPICILLIN/SULBACTAM <=8/4 S AZTREONAM <=4 S CEFAZOLIN <=2 S CEFEPIME <=2 S CEFTAZIDIME <=1 S CEFTRIAXONE <=1 S CIPROFLOXACIN <=1 S GENTAMICIN <=4 S IMIPENEM <=1 S LEVOFLOXACIN <=2 S MEROPENEM <=1 S NITROFURANTOIN <=32 S TETRACYCLINE <=4 S TOBRAMYCIN <=4 S TRIMETHOPRIM/SULFAMETHOXAZOLE <=2/38 S PIPERACILLIN/TAZOBACTAM <=16 S S = Susceptible MS = Moderately Susceptible I = Intermediate R = Resistant ABDIRAHMAN = Beta Lactamase Positive AVERY = MCG/mL BLANK = Not Tested or Advisable URINE CULTURE Preliminary (Corrected) COLIFORMS MANY END OF REPORT Name Value Range Interpretation Code Description Data [facility]onda rce(s) Supporting Document(s) COLOR,UR STRAW YELLOW [facility] APPEARANCE,UR CLEAR CLEAR [facility] PH,UR 6.0 5.0-8.0 [facility] SPECIFIC GRAVITY,UR 1.001 1.002-1.035 L [facility] PROTEIN,UR NEGATIVE MG/DL NEGATIVE [facility] GLUCOSE, UR NEGATIVE MG/DL NEGATIVE [facility] KETONES,UR NEGATIVE MG/DL NEGATIVE [facility] OCCULT BLOOD,UR SMALL NEGATIVE A [facility] NITRATE,UR NEGATIVE NEGATIVE [facility] LEUKOCYTE ESTERASE ,UR LARGE NEGATIVE A [facility] BILIRUBIN,UR NEGATIVE NEGATIVE [facility] UROBILINOGEN,UR 0.2-1.0 EU MG/DL NEG-0-1.0 [facility] RBC,UR 3-9 PER HPF 0-2 A [facility] WBC,UR 10-24 PER HPF <5 A [facility] URINE EPITH RARE PER/LPF FEW-MOD [facility] BACTERIA,UR RARE PER HPF NONE [facility] MUCUS,UR RARE PER HPF NONE SEEN [facility] ID Date Data Source [id number] 08/24/2020 08:49:00 AM EDT [facility] Run: 08/24/20 0849 INTERFACED REPORT Name: Peg Mcfadden Sonny Age/Sex: 24/F Location: ED Acct: [id number] Unit: [id number] Status: DEP ER Room/Bed: Re08/22/20 Disch: Att Dr: Debbie Stovall MD Specimen #: [id number] Ordered : 08/22/2009/07/2140 Collected : 08/22/2009/07/2122 By: SAHARA Received: 08/22/2009/07/2130 By: PENELOPE Source: URINE CC Specimen Description: Procedure Result - COLONY COUNT Final COLONY COUNT GREATER THAN 100,000 CFU/ML URINE CULTURE Final COLIFORMS MANY Organism 1 ESCHERICHIA COLI 1. ESCHERICHIA COLI AVERY Int --------- --- AMIKACIN <=16 S AMPICILLIN <=8 S AMPICILLIN/SULBACTAM <=8/4 S AZTREONAM <=4 S CEFAZOLIN <=2 S CEFEPIME <=2 S CEFTAZIDIME <=1 S CEFTRIAXONE <=1 S CIPROFLOXACIN <=1 S GENTAMICIN <=4 S IMIPENEM <=1 S LEVOFLOXACIN <=2 S MEROPENEM <=1 S NITROFURANTOIN <=32 S TETRACYCLINE <=4 S TOBRAMYCIN <=4 S TRIMETHOPRIM/SULFAMETHOXAZOLE <=2/38 S PIPERACILLIN/TAZOBACTAM <=16 S S = Susceptible MS = Moderately Susceptible I = Intermediate R = Resistant ABDIRAHMAN = Beta Lactamase Positive AVERY = MCG/mL BLANK = Not Tested or Advisable URINE CULTURE Preliminary (Corrected) COLIFORMS MANY END OF REPORT Name Value Range Interpretation Code Description Data Lashonda rce(s) Supporting Document(s) ID Date Data Source [id number] 08/22/2020 09:10:00 [place] [address] HEALTH INFORMATION MANAGEMENT ED/UC Physician Report : [id number] Signed Patient: Peg Mcfadden Acct:[id number] Unit: [id number] : 1995 Arrival Date: 08/22/20 Age/Sex: 24 / F Arrival Time: 2018 Copies to: PCP,No Skin/Abscess/FB-HPI/ROS General Chief Complaint: Skin/Soft Tissue Complaint Stated Complaint: Infection on Forehead Lip/Vaginal Complaint Source: Reports Patient Mode of arrival: Ambulatory Limitations: Reports No limitations History of Present Illness Initial Comments: 24-year-old female presenting to the emergency department with complaint of abscesses to her face. She was also complaining of vaginal discharge. Patient states she has had symptoms for the last few days. She does report new sexual partner. Patient reports history of IV drug use last used heroin this morning. Reports that she is going to start outpatient Suboxone tomorrow. She denies any fevers chills nausea vomiting. Related Data Last Menstrual Period: none Home Medications Medication Instructions Recorded clindamycin HCl 300 mg PO QID #40 cap 08/22/20 fluconazole [Diflucan] 150 mg PO Q3D #2 tab 08/22/20 metronidazole [Flagyl] 500 mg PO BID #14 tab 08/22/20 Allergies latex Allergy (Intermediate, Verified 08/22/20 16:26) RASH/HIVES Social History History of Smoking/Tobacco Use: Never Smoker Tobacco Product: Reports Cigarette s Alcohol use: Reports None Drug use: Reports Current use and Heroin Occupation: unemployed Lives with: Reports Family PMH/PSH Medical History (Updated 08/22/20 @ 22:28 by CHASITY Driver) History of drug abuse Surgical History No pertinent past surgical history (Surgical) Family History Other Unknown family medical history Physical Exam Physical Exam General appearance: Alert and In no apparent distress Head Adult Head Front + Back: 1. 1 cm area of induration no fluctuance noted. 2. 1.5 cm area of induration without fluctuance. Scabbing noted. ENT ENT Exam: Nose normal and Tympanic membrane normal Neck Neck Exam: Full ROM Cardiac Cardiac: Present: Regular rate and rhythm and Radial pulses normal equal Lung/Chest Lung/Chest Exam: Clear and Normal Exchange Abdomen Abdominal Exam: Bowel sounds normal, Soft, Nondistended, Nontender and No guarding Exam OB exam: Deferred (Declined exam and patient opted to self swab) Neuro Neuro Normal: Alert, Oriented x 3, Sensory normal and Strength 5/5 all extremities Psych Psych Normal: Normal Affect Skin Skin exam: Dry, Intact, [place] and Warm Course Vital Signs Vital signs: Vital Signs 08/22/20 20:25 Temperature 98.7 F Pulse Rate 64 Respiratory Rate 18 Blood Pressure 119/69 O2 Sat by Pulse Oximetry 98 Medical Decision Making/CCT Medical Decision Making Medical Decision Makin-year-old female patient presenting to the emergency department with complaint of abscesses to her face. Also complains of vaginal discharge. Patient is not tachycardic or febrile. Abscesses were both clean. The abscess near her lip is not fluctuant and will not be drained today. Encouraged warm moist heat. Abscess to patient's forehead has a scab on at which she states has been draining minimally. Patient had warm soaks placed on the abscess and the scab was removed. Patient was unable to tolerate pressure and therefore refused to have this drained. Patient has been prescribed clindamycin. Patient's wet prep was positive for Trichomonas. She was given her 1st dose of Flagyl in the emergency department. She will also be treated for gonorrhea and chlamydia empirically due to her symptoms and sexual history. Patient has been encouraged to follow closely with primary care doctor. For any worsening symptoms she has been instructed to return to the emergency department for re-evaluation. Discharge Plan Disposition Clinical Impression: infection, trichomonal, Cutaneous abscess of face Provider stated Dispo: Discharged Condition: Stable Instructions: Trichomoniasis (ED), Abscess Incision and Drainage (ED) Activity Restrictions/Additional Instructions: Increase her fluids and rest. Take your antibiotics as prescribed. You must follow-up with your primary care doctor in 1-2 days for evaluation. As discussed please use warm moist heat to the affected areas on her face. Prescriptions: New metronidazole [Flagyl] 500 mg tablet 500 mg PO BID Qty: 14 RF: 0 clindamycin HCl 300 mg capsule 300 mg PO QID Qty: 40 RF: 0 fluconazole [Diflucan] 150 mg tablet 150 mg PO Q3D Qty: 2 RF: 0 Referrals: PCP,No [Primary Care Provider] - 1 day Stand Alone Forms: Portal Instructions Provider in triage note Vital Signs Vital Signs: I O (Last 24 Hours) 08/20/20 08/21/20 08/22/20 23:59 23:59 23:59 Other: Weight 60 kg Vital Signs (Last 8 Hours) Temp Pulse Resp BP Pulse Ox 08/22/20 20:25 98.7 F 64 18 119/69 98 Date/Time <<Signature on File>> Initializing User: Arelis Melgar [facility] 08/22/202109 Signed by: Arelis Melgar [facility] 08/23/20 0038 Debbie Stovall MD 08/23/20 0039 Name Value Range Interpretation Code Description Data [facility] Supporting Document(s) ID Date Data Source [id number] 08/24/2020 12:36:00 PM EDT [facility] Name Value Range Interpretation Code Description Data [facility] Supporting Document(s) CHLAMYDIA, GENITAL NEGATIVE NEGATIVE [facility] GC, Genital NEGATIVE NEGATIVE [facility] ID Date Data Source [id number] 08/22/2020 10:15:00 PM EDT [facility] Run: 08/22/202214 INTERFACED REPORT Name: Peg Mcfadden Age/Sex: 24/F Location: ED Acct: [id number] Unit: [id number] Status: REG ER Room/Bed: Re08/22/20 Disch: Att Dr: Debbie Stovall MD Specimen #: [id number] Ordered : 08/22/2009/08/2203 Collected : 08/22/2009/07/2106 By: ALFRED Received: 08/22/2009/07/2204 By: MK Source: VAG/CERV Specimen Description: CERVICAL Procedure Result - WET PREP Final YEAST NONE SEEN TRICHOMONAS MANY CLUE CELLS NONE SEEN REFERENCE RANGE YEAST=NONE SEEN, TRICHOMONAS=NONE SEEN, CLUE CELLS=NONE SEEN -------- ---- END OF REPORT Name Value Range Interpretation Code Description Data Lashonda rce(s) Supporting Document(s) ID Date Data Source [id number] 03/01/2020 09:59:00 PM EST [email or web address] Name Value Range Interpretation Code Description Data [facility](s) Supporting Document(s) HCV Quant II 3400 IU/mL . [email or web address] HCV log10,S 3.531 . [email or web address] Result Units: log10 IU/mL Test Information,S [facility] The quantitative range of this assay is 15 IU/mL to 100 million IU/mL. [address] [address] Dir: Ara Caraballo MD ID Date Data Source [id number] 02/23/2020 02:16:00 PM EST [email or web address] HCV QUANT WITH VIRAL LOAD IF AB >11 Run: 02/25/20 1114 INTERFACED REPORT Name: Peg Mcfadden Age/Sex: 24/F [id number] Unit: [id number] Status: REG REF Room/Bed: Re02/23/20 Disch: Att Dr: Dada Bautista MD Specimen #: [id number] Ordered : 02/23/2009/06/1426 Collected : 02/23/2009/07/839 By: ALEX Received: 02/23/2009/06/1340 By: DEMARCUS Source: URINE CC Specimen Description: Procedure Result - COLONY COUNT Final COLONY COUNT GREATER THAN 100,000 CFU/ML URINE CULTURE Final COLIFORMS MANY Organism 1 ESCHERICHIA COLI 1. ESCHERICHIA COLI AVERY Int --------- --- AMIKACIN <=16 S AMPICILLIN <=8 S AMPICILLIN/SULBACTAM <=8/4 S AZTREONAM <=4 S CEFAZOLIN <=2 S CEFEPIME <=2 S CEFTAZIDIME <=1 S CEFTRIAXONE <=1 S CIPROFLOXACIN <=1 S GENTAMICIN <=4 S IMIPENEM <=1 S LEVOFLOXACIN <=2 S MEROPENEM <=1 S NITROFURANTOIN <=32 S TETRACYCLINE <=4 S TOBRAMYCIN <=4 S TRIMETHOPRIM/SULFAMETHOXAZOLE <=2/38 S PIPERACILLIN/TAZOBACTAM <=16 S S = Susceptible MS = Moderately Susceptible I = Intermediate R = Resistant ABDIRAHMAN = Beta Lactamase Positive AVERY = MCG/mL BLANK = Not Tested or Advisable URINE CULTURE Preliminary (Corrected) COLIFORMS MANY END OF REPORT HCV QUANT WITH VIRAL LOAD IF AB >11 Name Value Range Interpretation Code Description Data Lashonda rce(s) Supporting Document(s) HCG QUALITATIVE SPECIMEN URINE [employer] ID Date Data Source [id number] 02/23/2020 02:16:00 PM [facility] HCV QUANT WITH VIRAL LOAD IF AB >11 Run: 02/25/20 1114 INTERFACED REPORT Name: Peg Mcfadden Age/Sex: 24/F Location: [facility] Acct: [id number] Unit: [id number] Status: REG REF Room/Bed: Re02/23/20 Disch: Att Dr: Dada Bautista MD Specimen #: [id number] Ordered : 02/23/2009/06/1426 Collected : 02/23/2009/07/839 By: ALEX Received: 02/23/2009/06/1340 By: DEMARCUS Source: URINE CC Specimen Description: Procedure Result - COLONY COUNT Final COLONY COUNT GREATER THAN 100,000 CFU/ML URINE CULTURE Final COLIFORMS MANY Organism 1 ESCHERICHIA COLI 1. ESCHERICHIA COLI AVERY Int --------- --- AMIKACIN <=16 S AMPICILLIN <=8 S AMPICILLIN/SULBACTAM <=8/4 S AZTREONAM <=4 S CEFAZOLIN <=2 S CEFEPIME <=2 S CEFTAZIDIME <=1 S CEFTRIAXONE <=1 S CIPROFLOXACIN <=1 S GENTAMICIN <=4 S IMIPENEM <=1 S LEVOFLOXACIN <=2 S MEROPENEM <=1 S NITROFURANTOIN <=32 S TETRACYCLINE <=4 S TOBRAMYCIN <=4 S TRIMETHOPRIM/SULFAMETHOXAZOLE <=2/38 S PIPERACILLIN/TAZOBACTAM <=16 S S = Susceptible MS = Moderately Susceptible I = Intermediate R = Resistant ABDIRAHMAN = Beta Lactamase Positive AVERY = MCG/mL BLANK = Not Tested or Advisable URINE CULTURE Preliminary (Corrected) COLIFORMS MANY END OF REPORT HCV QUANT WITH VIRAL LOAD IF AB >11 Name Value Range Interpretation Code Description Data Lashonda rce(s) Supporting Document(s) WHITE BLOOD COUNT 8.60 10^3/uL 4.00-10.50 N [facility] RED BLOOD COUNT 4.50 10^6/uL 3.90-5.20 N [facility] HEMOGLOBIN 13.3 G/DL 11.5-15.6 [facility] HEMATOCRIT 39.8 % 35.0-46.[address] [facility] MCV 88.4 FL 80.0-100.[address] [facility] MCH 29.6 PG 27.0-34.0 [facility] MCHC 33.4 G/DL 32-[address] [facility] RDW 13.7 % 11.5-14.[address] [facility] PLATELET COUNT 275 10^3/uL 130-[address] [facility] MPV 9.5 FL 8.7-13.2 [facility] GRAN % (AUTO) 68.3 % 42.0-75.[address] [facility] LYMPH % (AUTO) 23.7 % 20.0-51.0 [facility] MONO % (AUTO) 6.3 % 2.0-15.[address] [facility] EOS % (AUTO) 0.5 % 0.0-11.[address] [facility] BASO % (AUTO) 0.9 % 0.0-2.[address] [facility] IG % (AUTO) 0.3 % 1.00-5.00 [facility] IG # (AUTO) 0.0 10^3/uL <0.5 [facility] GRAN # (AUTO) 5.87 10^3/uL 1.50-6.50 N [facility] LYMPH # (AUTO) 2.0 k/uL 1.0-5.0 N [facility] MONO # (AUTO) 0.54 k/uL 0.20-1.50 N [facility] EOS # (AUTO) 0.04 10^3/uL 0.00-1.10 N [facility] BASO # (AUTO) 0.08 10^3/uL 0.00-0.20 N [facility] ID Date Data Source [id number] 02/23/2020 02:27:00 PM EST [facility] HCV QUANT WITH VIRAL LOAD IF AB >11 Run: 02/25/20 1114 INTERFACED REPORT Name: LesaPeg Age/Sex: 24/F Location: [facility] Acct: [id number] Unit: [id number] Status: REG REF Room/Bed: Re02/23/20 Disch: Att Dr: Dada Bautista MD Specimen #: [id number] Ordered : 02/23/2009/06/1426 Collected : 02/23/2009/07/839 By: ALEX Received: 02/23/2009/06/1340 By: DEMARCUS Source: URINE CC Specimen Description: Procedure Result - COLONY COUNT Final COLONY COUNT GREATER THAN 100,000 CFU/ML URINE CULTURE Final COLIFORMS MANY Organism 1 ESCHERICHIA COLI 1. ESCHERICHIA COLI AVERY Int --------- --- AMIKACIN <=16 S AMPICILLIN <=8 S AMPICILLIN/SULBACTAM <=8/4 S AZTREONAM <=4 S CEFAZOLIN <=2 S CEFEPIME <=2 S CEFTAZIDIME <=1 S CEFTRIAXONE <=1 S CIPROFLOXACIN <=1 S GENTAMICIN <=4 S IMIPENEM <=1 S LEVOFLOXACIN <=2 S MEROPENEM <=1 S NITROFURANTOIN <=32 S TETRACYCLINE <=4 S TOBRAMYCIN <=4 S TRIMETHOPRIM/SULFAMETHOXAZOLE <=2/38 S PIPERACILLIN/TAZOBACTAM <=16 S S = Susceptible MS = Moderately Susceptible I = Intermediate R = Resistant ABDIRAHMAN = Beta Lactamase Positive AVERY = MCG/mL BLANK = Not Tested or Advisable URINE CULTURE Preliminary (Corrected) COLIFORMS MANY END OF REPORT HCV QUANT WITH VIRAL LOAD IF AB >11 Name Value Range Interpretation Code Description Data [facility]ashonda rce(s) Supporting Document(s) COLOR,UR SALAS YELLOW A [facility] APPEARANCE,UR TURBID CLEAR A [facility] PH,UR 5.0 5.0-8.0 [facility] SPECIFIC GRAVITY,UR 1.017 1.002-1.035 N [facility] PROTEIN,UR 100 MG/DL NEGATIVE A [facility] GLUCOSE, UR NEGATIVE MG/DL NEGATIVE [facility] KETONES,UR NEGATIVE MG/DL NEGATIVE [facility] OCCULT BLOOD,UR MODERATE NEGATIVE A [facility] NITRATE,UR NEGATIVE NEGATIVE [facility] LEUKOCYTE ESTERASE ,UR TRACE NEGATIVE A [facility] BILIRUBIN,UR NEGATIVE NEGATIVE [facility] UROBILINOGEN,UR 0.2-1.0 EU MG/DL NEG-0-1.0 [facility] RBC,UR 1-2 PER HPF 0-2 [facility] WBC,UR 25-49 PER HPF <5 A [facility] AMORPH SED,UR MANY PER LPF NEGATIVE [facility] BACTERIA,UR FEW PER HPF NONE [facility] MUCUS,UR MODERATE PER HPF NONE SEEN [facility] ID Date Data Source [id number] 02/24/2020 12:57:00 PM EST [facility] HCV QUANT WITH VIRAL LOAD IF AB >11 Run: 02/25/20 1114 INTERFACED REPORT Name: Peg Mcfadden Age/Sex: 24/F Location: [facility] Acct: [id number] Unit: [id number] Status: REG REF Room/Bed: Re02/23/20 Disch: Att Dr: Dada Bautista MD Specimen #: [id number] Ordered : 02/23/2009/06/1426 Collected : 02/23/2009/07/839 By: ALEX Received: 02/23/2009/06/1340 By: DEMARCUS Source: URINE CC Specimen Description: Procedure Result - COLONY COUNT Final COLONY COUNT GREATER THAN 100,000 CFU/ML URINE CULTURE Final COLIFORMS MANY Organism 1 ESCHERICHIA COLI 1. ESCHERICHIA COLI AVERY Int --------- --- AMIKACIN <=16 S AMPICILLIN <=8 S AMPICILLIN/SULBACTAM <=8/4 S AZTREONAM <=4 S CEFAZOLIN <=2 S CEFEPIME <=2 S CEFTAZIDIME <=1 S CEFTRIAXONE <=1 S CIPROFLOXACIN <=1 S GENTAMICIN <=4 S IMIPENEM <=1 S LEVOFLOXACIN <=2 S MEROPENEM <=1 S NITROFURANTOIN <=32 S TETRACYCLINE <=4 S TOBRAMYCIN <=4 S TRIMETHOPRIM/SULFAMETHOXAZOLE <=2/38 S PIPERACILLIN/TAZOBACTAM <=16 S S = Susceptible MS = Moderately Susceptible I = Intermediate R = Resistant ABDIRAHMAN = Beta Lactamase Positive AVERY = MCG/mL BLANK = Not Tested or Advisable URINE CULTURE Preliminary (Corrected) COLIFORMS MANY END OF REPORT HCV QUANT WITH VIRAL LOAD IF AB >11 Name Value Range Interpretation Code Description Data Lashonda rce(s) Supporting Document(s) RAPID PLASMA REAGIN NON-REACTIVE NONREACTIVE [facility] [employer] Test performed by charcoal methodology ID Date Data Source [id number] 02/25/2020 12:48:00 AM [facility] [employer] HCV QUANT WITH VIRAL LOAD IF AB >11 Run: 02/25/20 1114 INTERFACED REPORT Name: Peg Mcfadden Age/Sex: 24/F Location: [facility] Acct: [id number] Unit: [id number] Status: REG REF Room/Bed: Re02/23/20 Disch: Att Dr: Dada Bautista MD Specimen #: [id number] Ordered : 02/23/2009/06/1426 Collected : 02/23/2009/07/839 By: ALEX Received: 02/23/2009/06/1340 By: DEMARCUS Source: URINE CC Specimen Description: Procedure Result - COLONY COUNT Final COLONY COUNT GREATER THAN 100,000 CFU/ML URINE CULTURE Final COLIFORMS MANY Organism 1 ESCHERICHIA COLI 1. ESCHERICHIA COLI AVERY Int --------- --- AMIKACIN <=16 S AMPICILLIN <=8 S AMPICILLIN/SULBACTAM <=8/4 S AZTREONAM <=4 S CEFAZOLIN <=2 S CEFEPIME <=2 S CEFTAZIDIME <=1 S CEFTRIAXONE <=1 S CIPROFLOXACIN <=1 S GENTAMICIN <=4 S IMIPENEM <=1 S LEVOFLOXACIN <=2 S MEROPENEM <=1 S NITROFURANTOIN <=32 S TETRACYCLINE <=4 S TOBRAMYCIN <=4 S TRIMETHOPRIM/SULFAMETHOXAZOLE <=2/38 S PIPERACILLIN/TAZOBACTAM <=16 S S = Susceptible MS = Moderately Susceptible I = Intermediate R = Resistant ABDIRAHMAN = Beta Lactamase Positive AVERY = MCG/mL BLANK = Not Tested or Advisable URINE CULTURE Preliminary (Corrected) COLIFORMS MANY END OF REPORT HCV QUANT WITH VIRAL LOAD IF AB >11 Name Value Range Interpretation Code Description Data Lashonda rce(s) Supporting Document(s) SODIUM 140 MEQ/L 135-145 [facility] POTASSIUM 3.6 MEQ/L 3.5-5.3 [facility] CHLORIDE 107 MEQ/L 94-110 N [facility] CARBON DIOXIDE 28 MEQ/L 22-33 [facility] ANION GAP 9 5-[address] [facility] BLOOD UREA NITRO 10 MG/DL 7-[address] [facility] CREATININE 0.8 MG/DL 0.6-1.4 [facility] GFR 86.7 ML/MIN [facility] Stage G2 - Mildly decreased kidney func tion The GFR is an estimate of the Glomerular Filtration Rate. It is an aid to assess a patient's renal function. It is not a conclusive diagnosis of kidney disease. GFR normal is >=90 The MDRD GFR calculation is considered valid between the ages of 18 and 75 years only. BUN/CREAT RATIO 12 8-[address] [facility] GLUCOSE 76 MG/DL 70-[address] [facility] CA 9.6 MG/DL 8.7-10.[address] [facility] BILIRUBIN,TOTAL 0.2 MG/DL 0.1-1.[address] [facility] AST 25 U/L 5-[address] [facility] ALT 31 U/L 5-48 [facility] ALKALINE PHOSPHATASE 122 U/L 40-140 N [facility] TOTAL PROTEIN 6.8 G/DL 5.9-8.3 N [facility] ALBUMIN 4.7 G/DL 3.0-5.1 N [facility] GLOBULIN 2.1 G/DL 1.5-3.5 N [facility] ALB/GLOB RATIO 2.2 G/DL 1.0-3.0 [facility] ID Date Data Source [id number] 02/25/2020 11:13:00 AM EST [facility] HCV QUANT WITH VIRAL LOAD IF AB >11 Run: 02/25/20 1114 INTERFACED REPORT Name: Peg Mcfadden Age/Sex: 24/F Location: [facility] Acct: [id number] Unit: [id number] Status: REG REF Room/Bed: Re02/23/20 Disch: Att Dr: Dada Bautista MD Specimen #: [id number] Ordered : 02/23/2009/06/1426 Collected : 02/23/2009/07/839 By: ALEX Jones: 02/23/2009/06/1340 By: DEMARCUS Source: URINE CC Specimen Description: Procedure Result - COLONY COUNT Final COLONY COUNT GREATER THAN 100,000 CFU/ML URINE CULTURE Final COLIFORMS MANY Organism 1 ESCHERICHIA COLI 1. ESCHERICHIA COLI AVERY Int --------- --- AMIKACIN <=16 S AMPICILLIN <=8 S AMPICILLIN/SULBACTAM <=8/4 S AZTREONAM <=4 S CEFAZOLIN <=2 S CEFEPIME <=2 S CEFTAZIDIME <=1 S CEFTRIAXONE <=1 S CIPROFLOXACIN <=1 S GENTAMICIN <=4 S IMIPENEM <=1 S LEVOFLOXACIN <=2 S MEROPENEM <=1 S NITROFURANTOIN <=32 S TETRACYCLINE <=4 S TOBRAMYCIN <=4 S TRIMETHOPRIM/SULFAMETHOXAZOLE <=2/38 S PIPERACILLIN/TAZOBACTAM <=16 S S = Susceptible MS = Moderately Susceptible I = Intermediate R = Resistant ABDIRAHMAN = Beta Lactamase Positive AVERY = MCG/mL BLANK = Not Tested or Advisable URINE CULTURE Preliminary (Corrected) COLIFORMS MANY END OF REPORT HCV QUANT WITH VIRAL LOAD IF AB >11 Name Value Range Interpretation Code Description Data Lashonda rce(s) Supporting Document(s) ID Date Data Source [id number] 02/26/2020 12:13:00 AM [facility] HCV QUANT WITH VIRAL LOAD IF AB >11 Run: 02/25/20 1114 INTERFACED REPORT Name: Peg Mcfadden Age/Sex: 24/F Location: [facility] Acct: [id number] Unit: [id number] Status: REG REF Room/Bed: Re02/23/20 Disch: Nathan Dr: Dada Bautista MD Specimen #: [id number] Ordered : 02/23/2009/06/1426 Collected : 02/23/2009/07/839 By: ALEX Received: 02/23/2009/06/1340 By: DEMARCUS Source: URINE CC Specimen Description: Procedure Result - COLONY COUNT Final COLONY COUNT GREATER THAN 100,000 CFU/ML URINE CULTURE Final COLIFORMS MANY Organism 1 ESCHERICHIA COLI 1. ESCHERICHIA COLI AVERY Int --------- --- AMIKACIN <=16 S AMPICILLIN <=8 S AMPICILLIN/SULBACTAM <=8/4 S AZTREONAM <=4 S CEFAZOLIN <=2 S CEFEPIME <=2 S CEFTAZIDIME <=1 S CEFTRIAXONE <=1 S CIPROFLOXACIN <=1 S GENTAMICIN <=4 S IMIPENEM <=1 S LEVOFLOXACIN <=2 S MEROPENEM <=1 S NITROFURANTOIN <=32 S TETRACYCLINE <=4 S TOBRAMYCIN <=4 S TRIMETHOPRIM/SULFAMETHOXAZOLE <=2/38 S PIPERACILLIN/TAZOBACTAM <=16 S S = Susceptible MS = Moderately Susceptible I = Intermediate R = Resistant ABDIRAHMAN = Beta Lactamase Positive AVERY = MCG/mL BLANK = Not Tested or Advisable URINE CULTURE Preliminary (Corrected) COLIFORMS MANY END OF REPORT HCV QUANT WITH VIRAL LOAD IF AB >11 Name Value Range Interpretation Code Description Data [facility] rce(s) Supporting Document(s) HEPATITIS A ANTIBODY, IgM,S Negative Negative [facility] HEPATITIS A ANTIBODY, Total,S Negative Negative [facility] [employer] HEPATITIS B SURF ANTIGEN SCRN Negative Negative [facility] [employer] HEPATITIS B CORE ANTIBODY,IGM Negative Negative [facility] [employer] HEP B CORE ANTIBODY,TOTAL Negative Negative [facility] HEPATITIS B SURFACE ANTIBODY Non Reactive . [facility] Non Reactive: Inconsisten t with immunity, less than 10 mIU/mL Reactive: Consistent with immunity, greater than 9.9 mIU/mL HCV Ab,S >11.0 s/co ratio 0.0-0.9 A [facility] [employer] [facility] Strong reactive antibody screen (s/c ra christopher >10.9) is consistent with past or present HCV infection. Follow-up testing by HCV, Quantitative, Real time PCR (#[id number]) is recommended to determine viral load/diagnosis of current HCV infection. Performed at: [facility] [id number] [employer]: Ara Caraballo MD, Phone: [phone] ID Date Data Source [id number] 02/23/2020 02:16:00 PM EST [employer] HCV QUANT WITH VIRAL LOAD IF AB >11 Run: 02/25/20 1114 INTERFACED REPORT Name: Peg Mcfadden Age/Sex: 24/F Location: [facility] [facility] Acct: [id number] Unit: [id number] Status: REG REF Room/Bed: Re02/23/20 Disch: Nathan Dr: Dada Bautista MD Specimen #: [id number] Ordered : 02/23/2009/06/1426 Collected : 02/23/2009/07/839 By: ALEX Received: 02/23/2009/06/1340 By: DEMARCUS Source: URINE CC Specimen Description: Procedure Result - COLONY COUNT Final COLONY COUNT GREATER THAN 100,000 CFU/ML URINE CULTURE Final COLIFORMS MANY Organism 1 ESCHERICHIA COLI 1. ESCHERICHIA COLI AVERY Int --------- --- AMIKACIN <=16 S AMPICILLIN <=8 S AMPICILLIN/SULBACTAM <=8/4 S AZTREONAM <=4 S CEFAZOLIN <=2 S CEFEPIME <=2 S CEFTAZIDIME <=1 S CEFTRIAXONE <=1 S CIPROFLOXACIN <=1 S GENTAMICIN <=4 S IMIPENEM <=1 S LEVOFLOXACIN <=2 S MEROPENEM <=1 S NITROFURANTOIN <=32 S TETRACYCLINE <=4 S TOBRAMYCIN <=4 S TRIMETHOPRIM/SULFAMETHOXAZOLE <=2/38 S PIPERACILLIN/TAZOBACTAM <=16 S S = Susceptible MS = Moderately Susceptible I = Intermediate R = Resistant ABDIARHMAN = Beta Lactamase Positive AVERY = MCG/mL BLANK = Not Tested or Advisable URINE CULTURE Preliminary (Corrected) COLIFORMS MANY END OF REPORT HCV QUANT WITH VIRAL LOAD IF AB >11 Name Value Range Interpretation Code Description Data Lashonda rce(s) Supporting Document(s) HCG RESULT,U NEGATIVE [email or web address] Reference range is Negative To ensure best sensitivity, first morning void is recommended. Dilute, low specific gravity urine may give a falsely negative result. If is suspected, repeat testing with a new specimen 48-72 hours later. ID Date Data Source [id number] 02/25/2020 12:48:00 AM [facility] [email or web address] HCV QUANT WITH VIRAL LOAD IF AB >11 Run: 02/25/20 1114 INTERFACED REPORT Name: [place] Sonny Age/Sex: 24/F Location: [facility] Acct: [id number] Unit: [id number] Status: REG REF Room/Bed: Re02/23/20 Disch: Att Dr: Dada Bautista MD Specimen #: [id number] Ordered : 02/23/2009/06/1426 Collected : 02/23/2009/07/839 By: ALEX Received: 02/23/2009/06/1340 By: DEMARCUS Source: URINE CC Specimen Description: Procedure Result - COLONY COUNT Final COLONY COUNT GREATER THAN 100,000 CFU/ML URINE CULTURE Final COLIFORMS MANY Organism 1 ESCHERICHIA COLI 1. ESCHERICHIA COLI AVERY Int --------- --- AMIKACIN <=16 S AMPICILLIN <=8 S AMPICILLIN/SULBACTAM <=8/4 S AZTREONAM <=4 S CEFAZOLIN <=2 S CEFEPIME <=2 S CEFTAZIDIME <=1 S CEFTRIAXONE <=1 S CIPROFLOXACIN <=1 S GENTAMICIN <=4 S IMIPENEM <=1 S LEVOFLOXACIN <=2 S MEROPENEM <=1 S NITROFURANTOIN <=32 S TETRACYCLINE <=4 S TOBRAMYCIN <=4 S TRIMETHOPRIM/SULFAMETHOXAZOLE <=2/38 S PIPERACILLIN/TAZOBACTAM <=16 S S = Susceptible MS = Moderately Susceptible I = Intermediate R = Resistant ABDIRAHMAN = Beta Lactamase Positive AVERY = MCG/mL BLANK = Not Tested or Advisable URINE CULTURE Preliminary (Corrected) COLIFORMS MANY END OF REPORT HCV QUANT WITH VIRAL LOAD IF AB >11 Name Value Range Interpretation Code Description Data Lashonda rce(s) Supporting Document(s) TSH 1.762 uIU/ML 0.470-4.200 N [email or web address] Patients should not be tested for 72 ho urs post fluorescein dye angiography. A false depression of result may occur. ID Date Data Source [id number] 02/26/2020 12:13:00 AM [facility] [email or web address] HCV QUANT WITH VIRAL LOAD IF AB >11 Run: 02/25/20 1114 INTERFACED REPORT Name: Peg Mcfadden Age/Sex: 24/F Location: [facility] Acct: [id number] Unit: [id number] Status: REG REF Room/Bed: Re02/23/20 Disch: Att Dr: Dada Bautista MD Specimen #: [id number] Ordered : 02/23/2009/06/1426 Collected : 02/23/2009/07/839 By: ALEX Received: 02/23/2009/06/1340 By: DEMARCUS Source: URINE CC Specimen Description: Procedure Result - COLONY COUNT Final COLONY COUNT GREATER THAN 100,000 CFU/ML URINE CULTURE Final COLIFORMS MANY Organism 1 ESCHERICHIA COLI 1. ESCHERICHIA COLI AVERY Int --------- --- AMIKACIN <=16 S AMPICILLIN <=8 S AMPICILLIN/SULBACTAM <=8/4 S AZTREONAM <=4 S CEFAZOLIN <=2 S CEFEPIME <=2 S CEFTAZIDIME <=1 S CEFTRIAXONE <=1 S CIPROFLOXACIN <=1 S GENTAMICIN <=4 S IMIPENEM <=1 S LEVOFLOXACIN <=2 S MEROPENEM <=1 S NITROFURANTOIN <=32 S TETRACYCLINE <=4 S TOBRAMYCIN <=4 S TRIMETHOPRIM/SULFAMETHOXAZOLE <=2/38 S PIPERACILLIN/TAZOBACTAM <=16 S S = Susceptible MS = Moderately Susceptible I = Intermediate R = Resistant ABDIRAHMAN = Beta Lactamase Positive AVERY = MCG/mL BLANK = Not Tested or Advisable URINE CULTURE Preliminary (Corrected) COLIFORMS MANY END OF REPORT HCV QUANT WITH VIRAL LOAD IF AB >11 Name Value Range Interpretation Code Description Data Lashonda rce(s) Supporting Document(s) T-SPOT FOR TUBERCULOSIS See [facility] T-SPOT.TB Negative N ormal Value: Negative A negative test result does not exclude the possibility of exposure to or infection with Mycobacterium tuberculosis (M. tuberculosis). Patients with recent exposure to TB infected individuals exhibiting a negative T-SPOT.TB result should be considered for retesting within 6 weeks or if other relevant clinical symptoms indicate. Results from T-SPOT.TB testing must be used in conjunction with each individual's epidemiological history, current medical status, and results of other diagnostic evaluations. The T-SPOT.TB test is qualitative and results are reported as positive, borderline or negative, given that the test controls perform as expected. In line with the Centers for Di Control and Prevention's 2010 recommendation to report quantitative measurements alongside the qualitative result, the laboratory provides spot counts for informational purposes only. The T-SPOT.TB test should not be interpreted as a quantitative test. Panel A Spot Count (Corrected for Negative Control) 0 Panel B Spot Count (Corrected for Negative Control) 0 Negative Control Passed Positive Control Passed Additional information about the T-SPOT.TB test may be found at [email or web address] [email or web address] [address] [place] [address] [email or web address] CLIA ID# [id number] Liliane Mariano M.D.,Ph.D. Director ID Date Data Source [id number] 02/26/2020 12:13:00 AM [facility] [employer] HCV QUANT WITH VIRAL LOAD IF AB >11 Run: 02/25/20 1114 INTERFACED REPORT Name: Peg Mcfadden Age/Sex: 24/F Location: [facility] Acct: [id number] Unit: [id number] Status: REG REF Room/Bed: Re02/23/20 Disch: Att Dr: Dada Bautista MD Specimen #: [id number] Ordered : 02/23/2009/06/1426 Collected : 02/23/2009/07/839 By: ALEX Received: 02/23/2009/06/1340 By: DEMARCUS Source: URINE CC Specimen Description: Procedure Result - COLONY COUNT Final COLONY COUNT GREATER THAN 100,000 CFU/ML URINE CULTURE Final COLIFORMS MANY Organism 1 ESCHERICHIA COLI 1. ESCHERICHIA COLI AVERY Int --------- --- AMIKACIN <=16 S AMPICILLIN <=8 S AMPICILLIN/SULBACTAM <=8/4 S AZTREONAM <=4 S CEFAZOLIN <=2 S CEFEPIME <=2 S CEFTAZIDIME <=1 S CEFTRIAXONE <=1 S CIPROFLOXACIN <=1 S GENTAMICIN <=4 S IMIPENEM <=1 S LEVOFLOXACIN <=2 S MEROPENEM <=1 S NITROFURANTOIN <=32 S TETRACYCLINE <=4 S TOBRAMYCIN <=4 S TRIMETHOPRIM/SULFAMETHOXAZOLE <=2/38 S PIPERACILLIN/TAZOBACTAM <=16 S S = Susceptible MS = Moderately Susceptible I = Intermediate R = Resistant ABDIRAHMAN = Beta Lactamase Positive AVERY = MCG/mL BLANK = Not Tested or Advisable URINE CULTURE Preliminary (Corrected) COLIFORMS MANY END OF REPORT HCV QUANT WITH VIRAL LOAD IF AB >11 Name Value Range Interpretation Code Description Data Lashonda rce(s) Supporting Document(s) HIV SCREEN 4TH GENERATION Non Reactive Non Reactive [facility] Performed at: RN - [facility] [address] [id number] Power Distributor: Ara Caraballo MD, Phone: [phone] Procedure Social History Code Duration Value Status Description Data Source(s ) 08/22/2020 09:10:42 PM EDT Never Smoker completed [facility] [employer] 08/22/2020 09:10:42 PM EDT Cigarettes completed Cigarette s [employer] 08/22/2020 09:10:42 PM EDT Never Smoker completed Never S [employer] 08/22/2020 09:10:42 PM EDT Cigarettes completed Cigarette s [employer] Smoking 08/22/2020 09:10:00 PM EDT Never smoked tobacco (findi ng) completed Never smoked tobacco (finding) [employer] Smoking 08/22/2020 09:10:00 PM EDT Never smoked tobacco (findi ng) completed Never smoked tobacco (finding) [employer] Vital Signs ID Date Data Source UNK Name Value Range Interpretation Code Description Data Source(s) Body temperature 98.7 [degF] 98.7 [degF] [employer] Heart rate 59 /min 59 /min [employer] Respiratory rate 18 /min 18 /min [facility] Oxygen saturation in Arterial blood by Pulse oximetry 100 % 100 % [employer] Systolic blood pressure 92 mm[Hg] 92 mm[Hg] O [employer] Diastolic blood pressure 50 mm[Hg] 50 mm[Hg] [employer] Body temperature 98.7 [degF] 98.7 [degF] [employer] Heart rate 59 /min 59 /min [employer] Respiratory rate 18 /min 18 /min [facility] Oxygen saturation in Arterial blood by Pulse oximetry 100 % 100 % [employer] Systolic blood pressure 92 mm[Hg] 92 mm[Hg] [facility] Diastolic blood pressure 50 mm[Hg] 50 mm[Hg] [employer] Body height 162.56 cm 162.56 cm [employer] Body weight 60.00 kg 60.00 kg [employer] Body height 162.56 [facility].56 [facility]00 kg 60.00 [facility] Body height 162.56 cm 162.56 cm [employer] Body weight 54.55 kg 54.55 kg [employer] Body temperature 97.9 [degF] 97.9 [degF] [employer] Heart rate 58 /min 58 /min [facility] Respiratory rate 16 /min 16 /min [facility] Oxygen saturation in Arterial blood by Pulse oximetry 97 % 97 % [facility] Body height 162.56 cm 162.56 cm [facility] Body weight 54.55 kg 54.55 [facility] Body temperature 97.9 [degF] 97.9 [degF] [facility] Heart rate 58 /min 58 /min [facility] Respiratory rate 16 /min 16 /min [facility] Oxygen saturation in Arterial blood by Pulse oximetry 97 % 97 % [facility] Systolic blood pressure 100 mm[Hg] 100 mm[Hg] O [facility] Diastolic blood pressure 54 mm[Hg] 54 mm[Hg] [facility] Systolic blood pressure 100 mm[Hg] 100 mm[Hg] O [facility] Diastolic blood pressure 54 mm[Hg] 54 mm[Hg] [facility] Body height 162.[address] [facility] Body weight 54.[address] [facility] Body temperature 97.9 [degF] 97.9 [degF] [facility] Heart rate 58 /min 58 /min [facility] Respiratory rate 16 /min 16 /min [facility] Oxygen saturation in Arterial blood by Pulse oximetry 97 % 97 % [facility] Systolic blood pressure 100 mm[Hg] 100 mm[Hg] O [facility] Diastolic blood pressure 54 mm[Hg] 54 mm[Hg] [facility] Body height 162.[address] [facility] Body weight 54.[address] [facility] Body temperature 97.9 [degF] 97.9 [degF] [facility] Heart rate 58 /min 58 /min [facility] Respiratory rate 16 /min 16 /min [facility] Oxygen saturation in Arterial blood by Pulse oximetry 97 % 97 % [facility] Systolic blood pressure 100 mm[Hg] 100 mm[Hg] O [facility] Diastolic blood pressure 54 mm[Hg] 54 mm[Hg] [facility] ID Date Data Source [id number] 01/24/2021 08:25:54 AM [facility] Name Value Range Interpretation Code Description Data Source(s) WEIGHT RECORDED 180 lb 180 lb [facility] Body height Measured 64 in 64 in [facility]
--- OUTSIDE RECORDS SUMMARY | 2021-03-01 17:18 | CCD ---
Author Author Peg Montoya Generated Organization [facility] Address Unknown Phone Unavailable Functional Status No Results Mental Status No Results Assessments ThuFeb 22 00:56:40 EDT 2020: No Assessment Information Health Concerns Allergies No Known Allergy Information Encounters No Known Encounters Immunizations No Known Immunizations Lab Results No Known Laboratory Results Medical Equipment No Known Medical Equipment Medications Medication Directions Start Date End Date Methadone [id number] ThuSeptember 15 00:00:00 EDT 2020Sep 23 00:00:00 EDT 2020 Methadone [id number] ThuAugust 30 00:00:00 EDT 2020August 29 00:00:00 EDT 2021 Methadone [id number] ThuAugust 23 00:00:00 EDT 2020August 22 00:00:00 [...] EST 2019Feb 22 00:00:00 EST 2020 Methadone [id number] ThuDec 04 00:00:00 EDT 2019Dec 03 00:00:00 EDT 2020 Methadone [id number] ThuOct 12 00:00:00 EDT 2019Oct 11 00:00:00 EDT 2020 Methadone [id number] ThuJul 17 00:00:00 EDT 2019Aug 06 00:00:00 EDT 2019 Methadone [id number] ThuJun 27 00:00:00 EDT 2019Jul 06 00:00:00 EDT 2019 Methadone [id number] ThuMay 27 00:00:00 EST 2019Jun 26 00:00:00 EDT 2019 Methadone [id number] ThuSeptember 17 00:00:00 EDT 2018September 14 00:00:00 EDT 2019 Methadone [id number] ThuAug 03 00:00:00 EDT 2018September 16 00:00:00 EDT 2018 Methadone [id number] ThuJun 29 00:00:00 EDT 2018Aug 02 00:00:00 EDT 2018 Methadone [id number] ThuMay 09 23:00:00 EST 2018Jun 28 00:00:00 EDT 2018 Methadone [id number] ThuApr 30 23:00:00 EST 2018 Sat May 08 23:00:00 EST 2018 Methadone [id number] ThuApr 27 23:00:00 EST 2018 [place] Apr 29 23:00:00 EST 2018 Methadone [id number] ThuApr 13 23:00:00 EST 2017Apr 26 23:00:00 EST 2018 Methadone [id number] ThuMar 22 23:00:00 EST 2017Apr 12 23:00:00 EST 2017 Methadone [id number] ThuMar 11 23:00:00 EST 2017Mar 21 23:00:00 EST 2017 Methadone [id number] ThuMar 03 23:00:00 EST 2017Mar 10 23:00:00 EST 2017 Methadone [id number] ThuFeb 13 00:00:00 EDT 2017Mar 02 23:00:00 EST 2017 Methadone [id number] ThuFeb 08 00:00:00 EDT 2017Feb 12 00:00:00 EDT 2017 Methadone [id number] ThuJan 30 00:00:00 EDT 2017Feb 07 00:00:00 EDT 2017 Methadone [id number] ThuJan 26 00:00:00 EDT 2017Jan 29 00:00:00 EDT 2017 Methadone [id number] ThuJan 19 00:00:00 EDT 2017Jan 25 00:00:00 EDT 2017 Methadone [id number] ThuJan 07 00:00:00 EDT 2017Jan 18 00:00:00 [...] physical health crises. - Individual Session - [facility] UsePrimary therapist, when and if appropriate, will [...] client's ongoing treatment plan. Individual Session - [facility] therapist, when and if appropriate, will utilize [...] Text: * Opioid type dependence, unspecified* Code: [id number] * Start Date: ThuJan 07 06:51:00 EDT 2017 * Text: * Address mental health concerns(s)* Code: * Start Date: ThuAugust 31 00:00:00 EDT 2020 * Text: * Address physical health concern(s)* Code: * Start Date: ThuAugust 31 00:00:00 EDT 2020 * Text: * Address addiction medicine concern(s)* Code: * Start Date: ThuAugust 31 00:00:00 EDT 2020 * Text: * Tobacco use disorder* Code: [id number] * Start Date: ThuAugust 22 00:00:00 EDT 2020 * Text: * Opioid abuse, unspecified* Code: [id number] * Start Date: ThuAugust 22 00:00:00 EDT [...]
--- OUTSIDE RECORDS SUMMARY | 2021-03-01 17:18 | CCD ---
Author Author Peg Kingston [facility] Address [address], [place] [id number] Care Team Providers Care [employer] Installer Name Role Phone Augusta Kingston Unavailable Hallie Goodrich Unavailable Meghan Gerardo Unavailable Functional Status No Results Mental Status No Results Assessments ThuFeb 28 00:55:54 EST 2020: No Assessment Information Health Concerns Allergies No Known Allergy Information Encounters Program Name Primary Diagnosis Admission Date/Time Discharge Date/Time [facility] [facility] ThuFeb 22 09:00 :00 EST 2019Feb 22 21:00:00 EST 2019 [facility] ThuAugust 21 15:05:00 EDT 2020 [facility] ThuJan 07 09:00 :00 EDT 2017Nov 19 21:00:00 EDT 2019 [facility] Pre-Admission Mo n Jan 04 15:44:00 EDT 2017 [facility] Pre-Admission August 21 14:00:00 EDT 2020 [facility] Pre-Admission We Feb 21 08:00:00 EST 2019 [facility] ThuAugust 23 09:55 :00 EDT 2020 [facility] We August 29 09:00:00 EDT 2020Nov 16 00:00:00 EDT 2020 [facility] Pre-Admission We May 09 10:45:00 EST 2020Jul 09 10:00:00 EDT 2020 Immunizations No Known Immunizations Lab Results No Known Laboratory Results Medical Equipment No Known Medical Equipment Medications Medication Directions Start Date End Date Methadone [id number] ThuSeptember 15 00:00:00 EDT 2020Sep 23 00:00:00 EDT 2020 Methadone [id number] [place] August 30 00:00:00 EDT 2020August 29 00:00:00 EDT 2021 Methadone [id number] ThuAugust 23 00:00:00 EDT 2020August 22 00:00:00 EDT 2021 Doxycycline 100 MG CAP Take one (1) capsule by padmini th twice a day ThuFeb 22 00:00:00 EST 2019Mar 03 00:00:00 EST 2019 Diflucan 150 MG TAB Take one (1) tablet by mouth d aily ThuFeb 22 00:00:00 EST 2020 ThuFeb 22 00:00:00 EST 2020 Amoxicillin 500 MG CAP Take one (1) capsule by mouth three times a day ThuFeb 22 00:00:00 EST 2020 ThuFeb 28 00:00:00 EST 2 020 Methadone [id number] ThuDec 04 00:00:00 EDT 2019Dec 03 00:00:00 EDT 2020 Methadone [id number] ThuOct 12 00:00:00 EDT 2019Oct 11 00:00:00 EDT 2020 Methadone [id number] ThuJul 17 00:00:00 EDT 2019Aug 06 00:00:00 EDT 2019 Methadone [id number] ThuJun 27 00:00:00 EDT 2019Jul 06 00:00:00 EDT 2020 Methadone [id number] ThuMay 27 00:00:00 EST 2019Jun 26 00:00:00 EDT 2019 Methadone [id number] ThuSeptember 17 00:00:00 EDT 2018September 14 00:00:00 EDT 2019 Methadone [id number] ThuAug 03 00:00:00 EDT 2018September 16 00:00:00 EDT 2018 Methadone [id number] ThuJun 29 00:00:00 EDT 2018Aug 02 00:00:00 EDT 2018 Methadone [id number] ThuMay 09 23:00:00 EST 2018Jun 28 00:00:00 EDT 2018 Methadone [id number] ThuApr 30 23:00:00 EST 2018May 08 23:00:00 EST 2018 Methadone [id number] ThuApr 27 23:00:00 EST 2018Apr 29 23:00:00 EST 2018 Methadone [id number] ThuApr 13 23:00:00 EST 2017Apr 26 23:00:00 EST 2018 Methadone [id number] ThuMar 22 23:00:00 EST 2017Apr 12 23:00:00 EST 2017 Methadone [id number] ThuMar 11 23:00:00 EST 2017Mar 21 23:00:00 EST 2017 Methadone [id number] ThuMar 03 23:00:00 EST 2017Mar 10 23:00: EST 2017 Methadone [id number] ThuFeb 13 00:00:00 EDT 2017Mar 02 23:00:00 EST 2017 Methadone [id number] ThuFeb 08:00:00 EDT 2017Feb 12 00:00:00 EDT 2017 Methadone [id number] ThuJan 30 00:00:00 EDT 2017Feb 07 00:00:00 EDT 2017 Methadone [id number] ThuJan 26 00:00:00 EDT 2017Jan 29 00:00:00 EDT 2017 Methadone [id number] ThuJan 19 00:00:00 EDT 2017Jan 25 00:00:00 EDT 2017 Methadone [id number] ThuJan 07 00:00:00 EDT 2017Jan 18 00:00:00 [...] physical health crises. - Individual Session - [facility] UsePrscionhealthry therapist, when and if appropriate, will utilize [...] ongoing treatment plan. Individual Session - Mental He althPrimary therapist, when and if appropriate, will [...] Text: * Opioid type dependence, unspecified* Code: [id number] * Start Date: ThuJan 07 06:51:00 EDT 2017 * Text: * Address mental health concerns(s)* Code: * Start Date: ThuAugust 31 00:00:00 EDT 2020 * Text: * Address physical health concern(s)* Code: * Start Date: ThuAugust 31 00:00:00 EDT 2020 * Text: * Address addiction medicine concern(s)* Code: * Start Date: ThuAugust 31 00:00:00 EDT 2020 * Text: * Tobacco use disorder* Code: [id number] * Start Date: ThuAugust 22 00:00:00 EDT 2020 * Text: * Opioid abuse, unspecified* Code: [id number] * Start Date: ThuAugust 22 00:00:00 EDT [...]
[2021-03-01] MEDS ORDERED: SUBO12MI (17:55)
--- OUTSIDE RECORDS SUMMARY | 2021-03-01 20:23 | CCD ---
Author Author [facility] Organization [facility] Address Unknown Phone Unavailable Care Team Providers [employer] Sales Representative Name Role Phone Abad, Alanna NAMED ACCOUNT EXECUTIVE Unavailable Unavailable Abad, Alanna NAMED ACCOUNT EXECUTIVE Unavailable Unavailable Abad, Alanna NAMED ACCOUNT EXECUTIVE Unavailable Unavailable Abad, Alanna NAMED ACCOUNT EXECUTIVE Unavailable Unavailable Abad, Alanna NAMED ACCOUNT EXECUTIVE Unavailable Unavailable Abad, Alanna NAMED ACCOUNT EXECUTIVE Unavailable Unavailable Abad, Alanna NAMED ACCOUNT EXECUTIVE Unavailable Unavailable Abad, Alanna NAMED ACCOUNT EXECUTIVE Unavailable Unavailable Abad, Alanna NAMED ACCOUNT EXECUTIVE Unavailable Unavailable Abad, Alanna NAMED ACCOUNT EXECUTIVE Unavailable Unavailable Abad, Alanna NAMED ACCOUNT EXECUTIVE Unavailable Unavailable Abad, Alanna NAMED ACCOUNT EXECUTIVE Unavailable Unavailable Abad, Alanna NAMED ACCOUNT EXECUTIVE Unavailable Unavailable Abad, Alanna NAMED ACCOUNT EXECUTIVE Unavailable Unavailable Abad, Alanna NAMED ACCOUNT EXECUTIVE Unavailable Unavailable Abad, Alanna NAMED ACCOUNT EXECUTIVE Unavailable Unavailable Abad, Alanna NAMED ACCOUNT EXECUTIVE Unavailable Unavailable Abad, Alanna NAMED ACCOUNT EXECUTIVE Unavailable Unavailable Abad, Alanna NAMED ACCOUNT EXECUTIVE Unavailable Unavailable Abad, Alanna NAMED ACCOUNT EXECUTIVE Unavailable Unavailable Abad, Alanna NAMED ACCOUNT EXECUTIVE Unavailable Unavailable Abad, Alanna NAMED ACCOUNT EXECUTIVE Unavailable Unavailable Abad, Alanna NAMED ACCOUNT EXECUTIVE Unavailable Unavailable Abad, Alanna NAMED ACCOUNT EXECUTIVE Unavailable Unavailable Abad, Alanna NAMED ACCOUNT EXECUTIVE Unavailable Unavailable Abad, Alanna NAMED ACCOUNT EXECUTIVE Unavailable Unavailable Abad, Alanna NAMED ACCOUNT EXECUTIVE Unavailable Unavailable Abad, Alanna NAMED ACCOUNT EXECUTIVE Unavailable Unavailable Sonny Saenz [place] PLUSH BRUSHER Unavailable Unavailable Ahmed, Janet Lewis MD Unavailable Unavailable Ahmed, M Debbie MD Unavailable Unavailable Ahmed, M Mohtray MD Unavailable Unavailable Ahmed, M Mohtray MD Unavailable Unavailable Ahmed, M Mohamed MD Unavailable Unavailable Ahmed, M Debbie MD Unavailable Unavailable Ahmed, M Debbie MD Unavailable Unavailable Ahmed, M Debbie MD Unavailable Unavailable Ahmed, M Mohtray MD Unavailable Unavailable Ahmed, M Mohamed MD Unavailable Unavailable Ahmed, M Mohamed MD Unavailable Unavailable Ahmed, M Mohamed MD Unavailable Unavailable Ahmed, M Mohtray MD Unavailable Unavailable Ahmed, M Mohtray MD Unavailable Unavailable Ahmed, M Debbie MD Unavailable Unavailable Ahmed, M Mohtray MD Unavailable Unavailable Ahmed, M Mohtray MD Unavailable Unavailable Ahmed, M Mohamed MD Unavailable Unavailable Ahmed, M Mohtray MD Unavailable Unavailable Ahmed, M Debbie MD Unavailable Unavailable Ahmed, M Debbie MD Unavailable Unavailable Ahmed, M Debbie MD Unavailable Unavailable Ahmed, M Mohamed MD Unavailable Unavailable Ahmed, M Mohtray MD Unavailable Unavailable Ahmed, M Mohamed MD Unavailable Unavailable Ahmed, M Debbie MD Unavailable Unavailable Ahmed, M Debbie MD Unavailable Unavailable Ahmed, M Debbie MD Unavailable Unavailable Ahmed, M Debbie MD Unavailable Unavailable Ahmed, M Mohtray MD Unavailable Unavailable Ahmed, M Mohtray MD Unavailable Unavailable Ahmed, M Mohtray MD Unavailable Unavailable Ahmed, M Debbie MD Unavailable Unavailable Ahmed, M Debbie MD Unavailable Unavailable Ahmed, M Debbie MD Unavailable Unavailable Ahmed, M Debbie MD Unavailable Unavailable Ahmed, M Mohtray MD Unavailable Unavailable Ahmed, M Mohtray MD Unavailable Unavailable Ahmed, M Mohamed MD Unavailable Unavailable Ahmed, M Mohtray MD Unavailable Unavailable Ahmed, M Debbie MD Unavailable Unavailable Ahmed, M Debbie MD Unavailable Unavailable Ahmed, M Debbie MD Unavailable Unavailable Ahmed, M Debbie MD Unavailable Unavailable Ahmed, M Mohtray MD Unavailable Unavailable Ahmed, M Debbie MD Unavailable Unavailable Ahmed, M Debbie MD Unavailable Unavailable Ahmed, M Debbie MD Unavailable Unavailable Ahmed, M Debbie MD Unavailable Unavailable Singh Bautista MD Unavailable Unavailable Nupuf, S Dada MD [...] Jazmin Boudreaux MD Unavailable Unavailable Fernando Yanez [facility] Unavailable Unavailable Singh Xiao MD Unavailable Unavailable Singh Xiao MD Unavailable Unavailable Singh Xiao MD Unavailable Unavailable Singh Xiao MD Unavailable Unavailable Singh Xiao MD Unavailable Unavailable Singh Xiao MD Unavailable Unavailable Singh MACHADO MD Unavailable Unavailable Singh MACHADO MD Unavailable Unavailable Singh MACHADO MD Unavailable Unavailable Singh MACHADO MD Unavailable Unavailable Singh MACHADO MD Unavailable Unavailable Singh MACHADO MD Unavailable Unavailable Cook ., Tomasa DO Unavailable Unavailable Cook ., Tomasa DO Unavailable Unavailable Re-disclosure Warning The records that [...] is protected by Article 27-F of the [facility] Public Health law. If you continue you may have access to information: Regarding HIV / AIDS; Provided by facilities licensed or operated by the [facility] Office of Mental Health; or Provided by the [facility] Office for People With Developmental Disabilities. If such information is present, then the following [facility] mandated warning applies: This information [...] law may result in a fine or group home sentence or both. A general authorization for the release of medical or other information is NOT sufficient authorization for further disc losure. Allergies and Adverse Reactions Type Description Substance Reaction Status Data Source(s ) Drug allergy latex Latex RASH/HIVES MO [facility] Family History Family Member Name Family Member Gender Family Member Status Date o f Status Description Data Source(s) Unknown Condition [facility] Unknown Condition [facility] Unknown Condition [facility] Unknown Condition [facility] Unknown Condition [facility] Unknown Condition [facility] Unknown Condition [facility] Encounters Encounter Providers Location Date Indications Data Source(s ) Outpatient 02/25/2021 12:00:00 AM [facility] Outpatient 02/18/2021 12:00:00 AM T [facility] Outpatient Attender: ALBINO MACHADO MDReferrer: ALBINO Donovan MD 02/11/2021 12:00:00 AM EDT Opioid dependence, uncomplicated [facility] Opioid dependence, uncomplicated Outpatient Attender: ALBINO MACHADO MD [id number] 02/11 12:00:00 AM EDT - 02/11/2021 03:01:34 PM EDT [facility] fol Outpatient 02/04/2021 12:00:00 AM EDT [facility] Outpatient Attender: ALBINO MACHADO MD [id number] 01/29 12:00:00 AM EDT - 01/29/2021 12:03:48 PM EDT [facility] Outpatient Attender: Gibson Xiao MDReferrer: ALBINO MACHADO MD [id number] 01/29/2021 12:00:00 AM EDT - 01/29/2021 10:31:52 AM EDT [facility] Outpatient Attender: ALBINO MACHADO MD [id number] 01/21 12:00:00 AM EDT - 01/21/2021 02:14:10 PM EDT [facility] consult Emergency Attender: ALBINO MACHADO MD [id number] 01/17 12:00:00 AM EDT - 01/17/2021 10:02:00 AM EDT addiction problem [facility] addiction problem Patient discharged. Outpatient Attender: Moody Yanez [facility] 11/30/2020 09:30 :[facility]: Moody [facility]anez [facility] India Saenz [facility] 11/22/2020 03:00:00 PM [facility] Emergency Attender: Tomasa Cook . 11:30:00 PM EDT - 10/03/2020 12:40:00 AM EDT 941-MH Eval [facility] 941-MH Eval Patient discharged. Unlisted evaluation and management service 08/29/2020 01:00:00 PM EDT - 11/16/2020 04:00:00 AM EDT [facility] ([place] / [facility]) Unlisted evaluation and management service 09/2020 01:55:00 PM EDT [facility] ([place] / [facility]) Emergency Attender: Debbie Stovall MD 08/22 08:19:00 PM EDT - 08/22/2020 11:00:00 PM EDT Infection on Forehead Lip/Vaginal Complaint [facility] Infection on Forehead Lip/Vaginal Comp laint Patient discharged. Emergency Attender: Jazmin Boudreaux MD 021 04:01:00 PM EDT - 08/22/2020 06:20:00 PM EDT Infection On Face/Vaginal Complaint [facility] Infection On Face/Vaginal Complaint Patient discharged. 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 Unlisted evaluation and management service 02/23/2020 02:00:00 PM EST - 02/24/2020 02:00:00 AM EST [facility] ([place] [facility]) Unlisted evaluation and management service 07/2019 01:00:00 PM EST [facility] ([place] [facility]) <td ID="encounterTypeDescriptionID0">Cor respondence</td><td>Alanna Melgoza NAMED ACCOUNT EXECUTIVE</td><td>[facility]</td><td>02/09/2020</td><td></td>Unknown Attender: Alanna Melgoza NP [facility] 02/09/2020 11:33:00 AM EDT - 02/09/2020 11:59:00 PM EDT [facility] ([facility]) Unknown<td ID="encounterTypeDescriptionI D1">Chart Update</td><td>Alanna Melgoza NAMED ACCOUNT EXECUTIVE</td><td>[facility]</td><td>02/01/2020</td><td></td> Attender: Alanna Melgoza LEONARD [facility] 02/01/2020 11:39:00 AM EDT - 02/01/2020 11:59:00 PM EDT [facility] Unknown<td ID="encounterTypeDescriptionI D2">Correspondence</td><td>Alanna Melgoza LEONARD</td><td>[facility]</td><td>01/18/2020</td><td></td> Attender: Alanna Melgoza LEONARD [facility] 01/18/2020 10:00:00 AM EDT - 01/18/2020 11:59:00 PM EDT [facility]) Immunizations Vaccine Date Status Description Data Source(s) COVID-19 VACCINE [facility] 11/06/2020 12:00:00 AM EDT completed [facility] Vaccine Series Complete: YESThis Data wa s Submitted to [facility] Via [employer]. TB Skin test is not vaccine. 01/12/2020 11:40:00 AM EDT complete d <td ID="Aanlovduerhuf-Sdfobnzdnoi-RK1">PPD TB TST</td><td ID="ImmunizationDose- 1">1</td><td>01/12/2020</td><td ID="Vzlbntqmavkxp-HsbriCqsd-FN1"></td><td></td> <td ID="Vucpwojeumllq-Vunynj-WN7">Complete (Reported)</td><td>Patient</td><td ID="Zkagmukgoklcy-Sayeu-Znrd-Comment-ID1"></td> [facility]) Medications Medication Brand Name Start [...] 3 DAYS FOR 2 DOSES SOLD: 08/23/2020 [facility] Metronidazole 500 MG Oral Tablet METRONIDAZOLE 08/23/2020 12:0 0:00 AM EDT tablet 14 TAKE ONE TABLET BY MOUTH TWICE A DAY FOR 7 DAYS TAKE ONE TABLET BY MOUTH TWICE A DAY FOR 7 DAYS SOLD: 08/23/2020 [facility] 300 mg 08/23/2020 12:00:00 AM EDT capsule 40 TAKE ONE CAPSULE BY MOUTH FOUR TIMES A DAY FOR 10 DAYS TAKE ONE CAPSULE BY MOUTH FOUR TIMES A DAY FOR 10 DAYS SOLD: 08/23/2020 [facility] Fluconazole 150 MG Oral Tablet Fluconazole (Diflucan) 150 mg tablet Fluconazole (Diflucan) 150 mg tablet 08/22/2020 10:30:05 PM EDT TABLET 150 MG ORAL active [facility] Fluconazole 150 MG Oral Tablet Fluconazole (Diflucan) 150 mg tablet Fluconazole (Diflucan) 150 mg tablet 08/22/2020 10:30:05 PM EDT TABLET 150 MG ORAL [facility] Cl[facility] 300 MG Oral Capsule Clindamycin Hcl Clindamycin Hcl 08/22/2020 10:28:40 PM EDT CAPSULE 300 MG ORAL active [facility] Clindamycin 300 MG Oral Capsule Clindamycin Hcl Clindamycin Hcl 08/22/2020 10:28:40 PM EDT CAPSULE 300 MG ORAL active [facility] Metronidazole 500 MG Oral Tablet Metronidazole (Flagyl ) 500 mg tablet Metronidazole (Flagyl) 500 mg tablet 08/22/2020 10:28:32 PM EDT TABLET 500 MG ORAL active [facility] Metronidazole 500 MG Oral Tablet Metronidazole (Flagyl ) 500 mg tablet Metronidazole (Flagyl) 500 mg tablet 08/22/2020 10:28:32 PM EDT TABLET 500 MG ORAL active [facility] Amoxicillin 500 MG Oral Capsule Amoxicillin 02/23/2020 05:00:00 AM EST 1.0 Capsule Oral active [facility] ([place] [facility]) Doxycycline Monohydrate 100 MG Oral Capsule Doxycycline 02/23/2020 05:00:00 AM EST 1.0 Capsule Oral active [facility] ([place] [facility]) Fluconazole 150 MG Oral Tablet [Diflucan] Diflucan 02/23/2020 0 5:00:00 AM EST 1.0 Tablet Oral active [facility] ([place] [facility]) Fluconazole 150 MG Oral Tablet Fluconazole 12/13/2019 12:26:06 PM EDT TABLET 150 MG ORAL [facility] 150 MG Oral Tablet Fluconazole 12/13/2019 12:26:06 PM EDT TABLET 150 MG ORAL completed [facility] Ibuprofen 800 MG Oral Tablet Ibuprofen 12/13/2019 12:24:04 PM EDT TA B[facility] 800 MG ORAL [facility] 800 MG Oral Tablet Ibuprofen 12/13/2019 12:24:04 PM EDT TA BLET 800 MG ORAL [facility] Ibuprofen 800 MG Oral Tablet Ibuprofen 12/13/2019 11:31:42 AM EDT TA BLET 800 MG ORAL completed [facility] Ib[facility] 800 MG Oral Tablet Ibuprofen 12/13/2019 11:31:42 AM EDT TA BLET 800 MG ORAL completed [facility] Insurance Providers Payer name Policy type / Coverage type Policy ID Covered democrat ID Covered democrat's relationship to dexter Policy Dexter Plan Information BCBS OF [place] [id number] [id number] GEHA [id number] MEDICAID [id number] Self [id number] 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 PLAN U [id number] Self [id number] MEDICAID [facility] [id number] SP [id number] COMMERCIAL GENERIC U [id number] Child [id number] Medicaid of [place] Other 0 [id number] Self 0 Medicaid [facility] Other [id number] Self Medicaid [facility] Other 0 [id number] Self 0 [facility] [facility] [place] Other 0 [id number] Self 0 [place] Other 0 [id number] Self 0 ESDRAS [id number] SP [id number] ESDRAS UNAVAILABLE SP UNAVAILA BLE [place] Other 0 [id number] Self 0 [place] Other 0 [id number] Self 0 [place] Other 0 [id number] Self 0 [place] Other 0 [id number] Self 0 [place] Other 0 [id number] Self 0 [place] Other 0 [id number] Self 0 SELF PAY ESDRAS [id number] SP [id number] ESDRAS I [id number] Self [id number] [employer] [id number] Self [id number] SELF PAY ESDRAS [id number] SP [id number] ESDRAS [id number] SP [id number] 100 SELF PAY SELF PAY ESDRAS [id number] SP [id number] 100 SELF PAY ESDRAS [id number] SP [id number] 100 ESDRAS [id number] SP [id number] 100 SELF PAY ESDRAS [id number] SP [id number] 100 SELF PAY SELF PAY ESDRAS [id number] SP [id number] 100 SELF PAY ESDRAS [id number] SP [id number] 100 ESDRAS [id number] SP [id number] 100 SELF PAY SELF PAY ESDRAS [id number] SP [id number] 100 SELF PAY ESDRAS [id number] SP [id number] 100 ESDRAS [id number] SP [id number] 100 SELF PAY SELF PAY ESDRAS [id number] SP [id number] 100 SELF PAY MEDICAID M [id number] Self [id number] GEHA O [id number] S [id number] SELF PAY ONLY NONE SP NONE MEDICAID HEA [id number] Private Insurance Commercial [id number] Family Dependent [employer] MAGISTRATE DEP UNAVAILABLE SP UNAVAILABLE GEHA-ASA [id number] SP [id number] GEHA COMM [id number] CHILD [id number] GEHA COMM [id number] CHILD 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 [id number] CHILD [id number] [employer] [place] [id number] CHILD VYA [id number] [employer] [id number] SP [id number] [employer] N/F INSURANCE CO CLM#[id number] SP CLM#[id number] SELF PAY UNAVAILABLE SP UNAVAILA BLE AETNA COMM [id number] CHILD [id number] [employer] [place] [id number] CHILD YOU [id number] [place] WATN PPO 302/307 [id number] MO2 [id number] AETNA HE[place]ARE [place] [id number] FA2 [id number] GEHA - ASA [id number] CH [id number] MEDICAID GME [id number] S [id number] ESDRAS CARE HEA [id number] S [id number] GEHA - ASA [id number] 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 PLAN [id number] MEDICAID M [id number] S [id number] Problems, Conditions, and Diagnoses Code Display Name Description Problem Type Effective Dates Data Source(s) F11.20 Opioid dependence, uncomplicated Opioid dependen ce, uncomplicated Diagnosis 02/11/2021 03:08:46 PM EDT [facility] fol fol Diagnosis 02/11/2021 02:17:53 PM ED T [facility] consult consult Diagnosis 01/21/2021 12:51:56 PM ED T [facility] addiction problem addiction problem Diagnosis 01/17/2021 07:37:00 AM EDT [facility] Z00.8 Encounter for other general examination Z00.8 - Encounter for other general examination Diagnosis 10/02/2020 11:30:00 PM EDT [facility] F11.10 Opioid abuse, uncomplicated F11.10 - Opioid abus e, uncomplicated Diagnosis 08/22/2020 08:19:00 PM EDT [facility] N89.8 Other specified noninflammatory disorder s of vagina N89.8 - Other specified noninflammatory disorders of vagina Diagnosis 08/23/19 08:19:00 PM EDT [facility] L02.01 Cutaneous abscess of face L02.01 - Cutaneous abscess o f face Diagnosis 08/22/2020 08:19:00 PM EDT [facility] L98.9 Disorder of the skin and subcutaneous ti ssue, unspecified L98.9 - Disorder of the skin and subcutaneous tissue, unspecified Diagnosis 08/2020 04:01:00 PM EDT [facility] B16.9 Acute hepatitis B without delta-agent an d without hepatic coma B16.9 - Acute hepatitis B without delta-agent and without hepatic coma Diagnosis 02/23/2020 07:57:00 PM [facility] [id number] Opioid abuse Opioid abuse Complaint 08/22/2020 04:00:00 A M EDT [facility] ([place] [facility]) [id number] Tobacco user Tobacco user Complaint 08/22/2020 04:00:00 A M EDT [facility] ([place] [facility]) Surgeries/Procedures Procedure Description Date Indications Data Source(s) Alcohol and/or drug assessment 08/22/2020 02:30:00 PM EDT [facility] ([place] [facility]) Urine Culture 08/22/2020 12:00:00 AM EDT [facility] 08/22/2020 12:00:00 AM EDT [facility] Microbial wet smear (procedure) 08/22/2020 12:00:00 AM EDT [facility] Urine Culture 08/22/2020 12:00:00 AM EDT [facility] Count 08/22/2020 12:00:00 AM EDT [facility] Microbial wet smear (procedure) 08/22/2020 12:00:00 AM EDT [facility] Results ID Date Data Source [id number] 02/11/2021 06:22:58 PM EDT [facility] Name Value Range Interpretation Code Description Data Lashonda rce(s) Supporting Document(s) Buprenorphine [Presence] in Urine Negative [facility] (NOTE)Positive results above the cutoff of 10 ng/mL are presumptive andunconfirmed. Confirmatory testing can be ordered at [place] [address] within 5 days of collection. ID Date Data Source [id number] 02/11/2021 06:22:58 PM T [facility] Name Value Range Interpretation Code Description Data Lashonda rce(s) Supporting Document(s) Amphetamine [Presence] in Urine by Screen method Negative [facility] (NOTE)Positive results are presumptive a nd unconfirmed;confirmatorytesting can be ordered at the [facility] at [facility] [place] [address] at [phone] within 5 days of collection. Benzodiazepines [Presence] in Urine by Screen method Negat [facility] Cannabinoids [Presence] in Urine by Screen method Negative [facility] (NOTE)Positive results are presumptive a nd unconfirmed;confirmatorytesting can be ordered at the [facility] at [facility] [place] [address] at [phone] within 5 days of collection. Benzoylecgonine [Presence] in Urine by Screen method Negat [facility] Methadone [Presence] in Urine by Screen method Negative [facility] Opiates [Presence] in Urine by Screen method Negative [facility] Oxycodone [Presence] in Urine by Screen method Negative [facility] Fentanyl+Norfentanyl [Presence] in Urine by Screen method Negative [facility] Service comment [facility] Results below the indicated cutoff (ng/m L), are reported as"Negative." Note: for medical purposes only; not valid for legalor employment testing. ID Date Data Source [id number] 02/11/2021 02:58:39 PM EDT [facility] Name Value Range Interpretation Code Description Data Lashonda rce(s) Supporting Document(s) Progress Note [facility] DLNLBr6wLpPYEcQt25/AKCemTNPhg9QcJTfcBCz8KFybNXCgA1KgOOQ2sX9lWBB8EVeIJbTyVgNxYBE7 lbm [file] AgICAgICAgICAgICAgICAgICAgICAgICAgICAgICAg FSCcKMMtBPRxCUYiAZDbDY3TQUGwRSBfVAEfUYXeQRNjZINiNUPmWJGcIGXcDWJyDOLiAHMaUHZhTILi XXXsSJYtSNAfFCNoHZUqZEGlJRFyDPFoHOKcXBZeTGCxQFMeDBUuOUZbXMEvHUMlQOUzVYHiKSJxRE0E ICAgICAgICAgICAgICAgICAgICAgICAgICAgICAgIC AgICAgICAgICAgICAgICAgICAgICAgICAgICAgICAgICAgICAgICAgICAgICAgICAgICAgICAgICAgIC VfMGShVTCkBN6PVZGjQEYiUBVuIXClRPAtHPItBUSeNIUcIFUdYOFsXGRvKXMwMXMdLMCsYRYwFNVlOI AgICAgICAgICAgICAgICAgICAgICAgICAgICAgICAg LFLhGMNuRTKgPPDwOZOkVRRkGA0KGDWqQOVxJDIdMSAeGNPvSXVeSVPxNBDfRCIuASHhJKSoVQUsSRTf ICAgICAgICAgICAgICAgICAgICAgICAgICAgICAgICAgICAgICAgICAgICAgICAgICAgICAgICAgICAg EQ3DZGPdLNThCFPoRCNgDVWjYNHnTMJvGGXuHCYxFV AgICAgICAgICAgICAgICAgICAgICAgICAgICAgICAgICAgICAgICAgICAgICAgICAgICAgICAgICAgIC TwVVFyOXDcZTNaBL6MIIVdULWxUYMyAWRbZTLoZVRrJJQeTIWsRCTkJEOuDWAwWIZmTOBnGUMeXZFcXC AgICAgICAgICAgICAgICAgICAgICAgICAgICAgICAg XTZtDXJwEPEkTVBgDJJlJCKqZQIwRL1NKDStDTKzWAQfZKDyMAMdVEOfVKAbXZYuMWGbPHRyKVDhFBGq ICAgICAgICAgICAgICAgICAgICAgICAgICAgICAgICAgICAgICAgICAgICAgICAgICAgICAgICAgICAg SGLjVI7SHBYmZPXkONUmRFAhAFSjULKfJCCdZORxMI AgICAgICAgICAgICAgICAgICAgICAgICAgICAgICAgICAgICAgICAgICAgICAgICAgICAgICAgICAgIC JgTMKmWSCuQLTzTKQkMW7DDTPaIAPqKLSnEEQdZLRaKZUhIZUhQDXkHFOpGDDaXUBxUBNtPZJfJNRcLE AgICAgICAgICAgICAgICAgICAgICAgICAgICAgICAg TLOtWSVpKTPiIKUhZKGbLOXmWZVfHIRhRT0NDG64sXAmh1Q2UPCkHP5euyi/Fb5KVRgnslJjuLFnXD9W LlJxLY8rnp6YVqSaIR1xyr7LHUkJOkRpI9A1rJYzADVwPLMIWpNxL16qUGdrPj70XCjoWEOzClAjUPi3 Bm6ECiGiJ0zjHECnKlB2ZJNnVkJ9VGYiLgZ8XHWeCv ZbWVuyTF9Sd8LyaOBkAOp+Po9TBS4ve3KcTJcbFjHcXH2ehd0QISeXDkEyH9QhrsC4LOZ5KSCjVn2USY QjVNFxqFYcDhAuVJNDFsIrK1JjhB18XWAIWd4+EHsetqBpChdGGvJ5TCCcn6McUZa1HV4HQZGeLMe8jI OdVYUlT4Npa5YdCk34JTGcYztnFxfitROiNGKVQDXj uIUuAIRZGZOujWUtIL8tYY4jJJYwRQWtCrXeDVKEKH6XISViRUEssTZjBYMsCIUBBS0NYBgeUXZ8KPWc nyNtjXLyRIhxSL6PXZIufkZxIzGfCQOGCVu+Ts5IBP5ni1BeTLhtBDWiOU7ryq7ZZFvWBbTlS2F2kHIw D4Q9XTzgDv8QAMXeWWBiGkMhZKKAKAtpZU5TKI3wfi U1OL7ShLZkMYJhENWuqRDaMIg6X44qtGTfCHmsXR2DYDX+Nate+Yr0YTKFiPTMwQCHgUsOfDLFSEbBvK5 FcZ8SEm3EsF3MyAH97kGcfolSgYYiwQM6LTI6pRBWmETPJJQ7SgBPksI8wjlJyBkVzNXNNAqMzX16liE EfZPNlRVQ1ZEYbEs5SYCJcV8EfyyVrsFlspqUmEFHe TIZLCV9PYWkfcqYdbJCzmOkiPR19mNxfNL0PDa4EGdAfSP8igx6ScKUpDp9JXUQlHW5EQTGwLRFxXDNt BNB1SMWeBkBdSZewTKIfZSQlQQO7CITzTLRmGK8GNhDsNIYdKjN3QUwpEHCqDCQbtt1RKZWbBSHbUjxr KpYrPEDbPPQmQFfqJFRkDVKnASU4GPRkYADyBU8QNb RvNXVyQTTeSBrkKSHkBQRsia4ESXSqYXFcXiQaNcImXTXzZBUlRMvaGCWkCJP5VRz4JCDiUGNvZU3ZLu PmGKDpRCFpCZhhLSMqLCGerg5MUDFaGCHmMAQgFuHwHBCaISZtCRmkRTMyMGI4CrE9UDUyBQMaHF0IAi NbDQTpUEo6AnksANVxIWDwqk8EJBCjASYdTXs4VETi MRCxNWMkLQybFNMoVIR7YNP4OTVkWVMqTM2PCiVzPBIuBNI7KJUdUYOtDDIrwb5UYJPnVZQxOZFtRUUf VNOuDYCfVKvuMSVdTRAhSsV5DOZcKYEvWM8NNdYlQHEjXfE1XtZyETFaOPZqei2HCPNhPLKjCdR0JAWo QLMxQROxTCzePZSlYFCoOdtmIMFkRUYkMB5VDtZyVM GeXgH2XvFcJKWrIAJtfs7GGWLuKPStAlB1DmGwHCZlQAVsWMzfFUJfCMZ5DwXhHVXhEOYpSP1HNlKbIV TaMvD6XJoaZTIyZVUhei6EIACvJDLuVWu0ImLuYGCmRAYbPKjmNJDqBWI9VixmDZHlZBWuIQ0DNgVmKY WrDvC0IRLbKHZeASJrlq7CGALoSFZeNqwwWDTpSDBo MRKdFSjuACQkISX3TIU6POQtRJBaLP4HGiMeXAmmASKCZsh4BKncD9o0DSYcAB0BA1Otl9TeIlrwOPZC BMrgJM1fnrEaLXVlUd2QH4iHWlkjUHHbQcF6HGMmTJicENSvJCNrQpZzARjgHfOdT4OiQC9mLQGiRyEh GdSsNcA5DXG6GpY5OyU2AUUxRDBkP3QeCdDlViAu ZK6QGf1VEgD7RXI0eOUkUt2WGwzyCHmQLvCbBT9SUAs= ID Date Data Source [id number] 01/29/2021 12:22:55 PM EDT [facility] Name Value Range Interpretation Code Description Data Lashonda rce(s) Supporting Document(s) Progress Note [facility] YJZVKx9yLhWEFwEj14/IJJjjJEHtv5SaECgfBRk0KOlqKHRiA4InJNU2gQ3yZDK4UZoQQoEvKaOtVDKy lbm [file] ICAgICAgICAgICAgICAgICAgICAgICAgICAgICAgICAgICAgICAgICAgICAgICAgICAgICAgICAgICAg ICAgICAgICAgICAgICAgICAgICAgICAgICAgICANCiAgICAgICAgICAgICAgICAgICAgICAgICAgICAg ICAgICAgICAgICAgICAgICAgICAgICAgICAgICAgIC AgICAgICAgICAgICAgICAgICAgICAgICAgICAgICAgICAgICAgICANCiAgICAgICAgICAgICAgICAgIC AgICAgICAgICAgICAgICAgICAgICAgICAgICAgICAgICAgICAgICAgICAgICAgICAgICAgICAgICAgIC AgICAgICAgICAgICAgICAgICAgICANCiAgICAgICAg ICAgICAgICAgICAgICAgICAgICAgICAgICAgICAgICAgICAgICAgICAgICAgICAgICAgICAgICAgICAg ICAgICAgICAgICAgICAgICAgICAgICAgICAgICAgICANCiAgICAgICAgICAgICAgICAgICAgICAgICAg ICAgICAgICAgICAgICAgICAgICAgICAgICAgICAgIC AgICAgICAgICAgICAgICAgICAgICAgICAgICAgICAgICAgICAgICAgICANCiAgICAgICAgICAgICAgIC AgICAgICAgICAgICAgICAgICAgICAgICAgICAgICAgICAgICAgICAgICAgICAgICAgICAgICAgICAgIC AgICAgICAgICAgICAgICAgICAgICAgICANCiAgICAg ICAgICAgICAgICAgICAgICAgICAgICAgICAgICAgICAgICAgICAgICAgICAgICAgICAgICAgICAgICAg ICAgICAgICAgICAgICAgICAgICAgICAgICAgICAgICAgICANCiAgICAgICAgICAgICAgICAgICAgICAg ICAgICAgICAgICAgICAgICAgICAgICAgICAgICAgIC AgICAgICAgICAgICAgICAgICAgICAgICAgICAgICAgICAgICAgICAgICAgICANCiAgICAgICAgICAgIC AgICAgICAgICAgICAgICAgICAgICAgICAgICAgICAgICAgICAgICAgICAgICAgICAgICAgICAgICAgIC AgICAgICAgICAgICAgICAgICAgICAgICAgICANCiAg ICAgICAgICAgICAgICAgICAgICAgICAgICAgICAgICAgICAgICAgICAgICAgICAgICAgICAgICAgICAg ICAgICAgICAgICAgICAgICAgICAgICAgICAgICAgICAgICAgICANCjw/yQSiD8nxxSLdaqL2A8umXb6B Eb3KTC4mp8FoECHnDYainxImIykISoAaGCSqDymQHs m2KYcnAB2LwLYiS2XjA7WyFYgyZV1BHZMoOMHbaMHxAWGjADDpDoC2IGVsQDwcSS2OjQBeQMklJBFoAT HpPNKpEUChNHQrVTQURBDiSWKmYwXvWGhyAN8Sr0PeeWE7XYg+Xv9DRZ4ls1KfGNwoUFYgKP6efp8KKC tZKqDcR8PxqzF2MTN4WNQyGz8RHHUfHETyfLXaNLWb TSGBLwRlI8UxnU78SBSRDx6+OHinlvBqQsnJPhZ8YBHmp5SzIJp0QN4KOIUjRZa2aRMiMLMdN6Rcq1Zq Xb94HSRuTmaoKocxoWHiACPUCGOaqAErXVLOMHJjsSOtYB8vJh0sPOMcDTVfBaKdOBWYVZ7BBQXzIRAb mACrFUNoNIZDVX7WEGznEFP5GRKwzbRgdDDuHCqxFG 9QYXJlbnQgMzQgMCBSDQo+Dr8CJU3uc2AxOIv3YPBhm6XcEIw2QA8ATAQmALjiLLTnNA3wh1EhP2W8Ll M1yONnH4zuwzitT5VkncKohyWgHPStCIVmLU4PGE0QNA4RUHTdTXouMO4YLDF4VTx5TYMhBCE8PMXxFb DyBsFoER9SYUIyRLJ4ZS1CGK1EImsfA9OSORvvtFBd exlvU0MikL0qikXoYgecLHr9tS6cnJC9SE6tnA61ds3nz0buQ5OtdMnojmqfZ7UcqZ7fC158MXYaDvYa YtOkpkmsWv4hPOk+Eh0MOY8gw8OoDWaiViUbIY4ult8JKJrJKoXrM5S6hTRdP8A6SGliQx9AFOSiRQLy HbBeADBDACsxJD4BRS3dszN3PE9UvITeZVYgDHOvdG RkZWf3E74beKCbNXybPE0JAFM+Nate+Ih6NIFJiUSOhARVmWzWfSNBNAmNzS0BlQ3MJs4WhE2TuZO03oW pulmVlRUkbXJ1EXN0mJWUgDORKOI5DeHMvoD9eroMsLGOdPVDHEdKgL36syJTuCBCmUHPyPLRoIm4IBP TqN4NscaAnyQomxrPbDNSrYRHMMN2LLLjxiuPwpBSa cFkuJC81cTfiVB0BEm2AYbRpPJ3iip7AgFXmQn2VGHZoSs6DBNSrQABaZEJpGAM9RVInHtWxAOidJDOn UHIvHDK7LXHqFSHaZG1HCcEbLOAxItNxKcJvZNHmRLJfsf8AIEVqNJYnBCh0HzLdODOqINAqAUftMVTy LHVjSZY2CQYsCYDrZU7CRbXgJXWyJMD0CZGjHFGePH Suii4SVNMnUEYvDWGtVnEpMMNyYCDwGLwhGTCaJJMoTsEiPQLnMCDtKS3THiEzKTXaHZI9BAFmWGNzYQ Qmih7HGXAnXVJcGjprHgEyGIBsZDFtBVpjKTDcYTA8EXVzVNLpDOSaME5KIoVvOLRnKYl5QyrmXYSaNU Rukd9AYTPyJLGfFAa4XaLqIZSmFFCzXQmeIDBsUNYv HJfsLBLzQNOtDN3QQqSoJCHgGYYqUQBdSPYpDYCsac5EUUItDQBwAfX1UFXkUBWsQLLyHOjtLXStVQRe FDBrMWPfUMSkTK2GRcSgUHZwSATpNCPaHDMzUGIakt1IEOAwAJMuFkK6EBZfZENrROLiQGhgUKLoMUGc ZjdtLNJhFNXlJN5TOgQtDTYvNsYgRWHcBRCrMDBlgw 4YAXWqKSBwMKNvNbRvLNRcATFfALrhVLQpYYQ0KhD8BCXuXSFtPL9YKsSwYSZzFuY3OINlTKXkCKLcul 9RVRMiUEOzOfZxVnVwEGSpLMVeMEdpDMAxDWYyJOq3KSAeKNBlXP2TPoJmHPKxUbPyUNQgOOJkYMVtdd 8VEDAxODDgRHEvAyOvDUYrCAJfKLkqZCImWZIqHpW7 OQMrGYAbAB2LMaKlJVWmHeY5SVBhINWhQGEppw1GMMXpRTVfQfw5YVCtBVLgBKAlDEknJVYrJHWkONS6 AAPySVLhHG6TVkMcIDMfVbSqRVYfBSMwRZHoyw0NFLWeTAReClP0OhHbKHWcLBEuEEzyBCUwFHX1ZGE6 IUVlGOFbMU4ZVeKbLDPkPeTlAfYhXDLrIJGxcf4XII XrHLEqOLIpDIVgRTFvPLHoWBg9akJkrKZwUCw0VG6AY4QepoXzChoOVp0Ts213QTG0KNLpWr9WI7chHj 3hHUGxVDNKVp2RARx9FRfkJyi7PZGqBvcbGDB6L6GkOTRcW4NgFiCtIoU7HVE+HQk1IOOgQJHtBARwG1 FbFZAiFSY9BJTwLvSvM7BiSIM1Nb3rAPITRc5+GWktgCWzbObyJPDNShE4Ccl8SSexZNROZr8E ID Date Data Source [id number] 01/29/2021 11:16:17 AM EDT [facility] Name Value Range Interpretation Code Description Data Lashonda rce(s) Supporting Document(s) Progress Note [facility] DMZAOo2pWjOIBiNq83/DLJfuFVMwq8NrIGizIHw4WFjiCQCsU9CvGPN2fB5hBQY1DPtDUrAfHqHiWFLx lbm [file] MDAzMTQxNSAwMDAwMCBuDQowMDAwMDMxNzQwIDAwMD KwHK3VGjTnXGCwKbN8KGrrKGCvHKTnhi2POCRvSXHxPjZ5NEYtOWZpQMFgILytQRFqZYQxOkU6LPZqZU FsEI5TXcSiHJXhRqPeXEblYFIeMUQdtp0CCIPdVPNoMsI7JwXcMHHcHDXpDCcpIDHuSCFoAgO2NDSaJA UjTS5VBwWnQQEvSeGrKcBkIVVxHJIthh1AEEAeZYZp TBP9ZeLcWTInAFQeNUmeYMHkKBD3PkL1QQAdLKDaCB5RKrQyOFUwUiI3QnHiXLVyGLBlfs3DuMYyrFae zq8OCNrOKh8GvQxnOTP7QTqlGn2eaUDaFTPyHKBRNi5UuuLhCNNmNNEVLDtqHKHvCHncFKY6ZVFuHXPg SHBjXAxsFLNkSPG1YnU6WsL8NNYzJuG1P9G8DEexN2 RnHpV4SRTvExK0RII7LxCqIihkLvwfYHV+KP5oMEe+Qw4Of1EshrU4vhTlMFpxSkGrBC5YFCUVQ3DZGz == ID Date Data Source [id number] 01/23/2021 03:43:23 PM EDT [facility] Name Value Range Interpretation Code Description Data Lashonda rce(s) Supporting Document(s) ED Provider Note [facility] YPWMSa7gZbBSEaNh36/KZWgeAUJzi6KmJYnpJNr6GKgnOHKhM2QrYKB3cD5hPLO2MQwVVpEgRhCsVTK5 lbm [file] X6EMS1XyA1QjJcKA9VZn0IVqV6PKV4xTJfGc7EMAM4YPFZPyGcBV1QWDv= ID Date Data Source [id number] 01/21/2021 05:36:28 PM [facility] Name Value Range Interpretation Code Description Data Lashonda rce(s) Supporting Document(s) Buprenorphine [Presence] in Urine Negative [facility] (NOTE)Positive results above the cutoff of 10 ng/mL are presumptive andunconfirmed. Confirmatory testing can be ordered at [place] [address] within 5 days of collection. ID Date Data Source [id number] 01/21/2021 05:36:28 PM [facility] Name Value Range Interpretation Code Description Data Lashonda rce(s) Supporting Document(s) Amphetamine [Presence] in Urine by Screen method Negative [facility] Ben[facility]iazepines [facility]Presence[facility] Cannabinoids [Presence] in Urine by Screen method Negative [facility] Benzoylecgonine [Presence] in Urine [facility] Methadone [Presence] in Urine by Screen method Negative [facility] Opiates [Presence] in Urine by Screen method Negative [facility] Oxycodone [Presence] in Urine by Screen method Negative [facility] Fentanyl+Norfentanyl [Presence] in Urine by Screen method Negative [facility] Service comment [facility] Results below the indicated cutoff (ng/m L), are reported as"Negative." Note: for medical purposes only; not valid for legalor employment testing. ID Date Data Source [id number] 01/21/2021 02:12:23 PM EDT [facility] Name Value Range Interpretation Code Description Data Lashonda rce(s) Supporting Document(s) Progress Note [facility] GXYTXz7fCcJDCtGx54/ENJhnISHho7RoPWmdVZm4EKlqOPVoE5ApQGM5yW0yEXM5WFjEUiEtKmRdTWP3 lbm [file] ICAgICAgICAgICAgICAgICAgICAgICAgICAgICAgIC AgICAgICAgICAgICAgICANCiAgICAgICAgICAgICAgICAgICAgICAgICAgICAgICAgICAgICAgICAgIC AgICAgICAgICAgICAgICAgICAgICAgICAgICAgICAgICAgICAgICAgICAgICAgICAgICAgICAgICANCi AgICAgICAgICAgICAgICAgICAgICAgICAgICAgICAg ICAgICAgICAgICAgICAgICAgICAgICAgICAgICAgICAgICAgICAgICAgICAgICAgICAgICAgICAgICAg ICAgICAgICANCiAgICAgICAgICAgICAgICAgICAgICAgICAgICAgICAgICAgICAgICAgICAgICAgICAg ICAgICAgICAgICAgICAgICAgICAgICAgICAgICAgIC AgICAgICAgICAgICAgICAgICANCiAgICAgICAgICAgICAgICAgICAgICAgICAgICAgICAgICAgICAgIC AgICAgICAgICAgICAgICAgICAgICAgICAgICAgICAgICAgICAgICAgICAgICAgICAgICAgICAgICAgIC ANCiAgICAgICAgICAgICAgICAgICAgICAgICAgICAg ICAgICAgICAgICAgICAgICAgICAgICAgICAgICAgICAgICAgICAgICAgICAgICAgICAgICAgICAgICAg ICAgICAgICAgICANCiAgICAgICAgICAgICAgICAgICAgICAgICAgICAgICAgICAgICAgICAgICAgICAg ICAgICAgICAgICAgICAgICAgICAgICAgICAgICAgIC AgICAgICAgICAgICAgICAgICAgICANCiAgICAgICAgICAgICAgICAgICAgICAgICAgICAgICAgICAgIC AgICAgICAgICAgICAgICAgICAgICAgICAgICAgICAgICAgICAgICAgICAgICAgICAgICAgICAgICAgIC AgICANCiAgICAgICAgICAgICAgICAgICAgICAgICAg ICAgICAgICAgICAgICAgICAgICAgICAgICAgICAgICAgICAgICAgICAgICAgICAgICAgICAgICAgICAg ICAgICAgICAgICAgICANCiAgICAgICAgICAgICAgICAgICAgICAgICAgICAgICAgICAgICAgICAgICAg ICAgICAgICAgICAgICAgICAgICAgICAgICAgICAgIC AgICAgICAgICAgICAgICAgICAgICAgICANCjw/bSNsD3uakZKblkX5H7mlXx0QJy8WFI1fu6IrYBZqME vkjqEfJlbEQpAnJTSiHqqJVdf8JNjcCU9MpXLjK0GhF3IhQPobCH4QGTRuVKEroQHmUXZiBYRsOqG7ZJ DvVOkhUP1SkVErKGlnZHGqZMQvXsCbCKTaMEFoMIGE HPFeKBOzTuZxZBXcDBRmHF8FJTDaI782kiWoRY6PNy5GUiRmRL2akj8BCqJwEPNtBabHIta0VFcqCE5B xYNhbCBfFwUcLFJCOcUbX7krf8GjOkpvLIXTMGvtKS0Zd7HftORsWRk+Ew1KVY9fa6QiQAedJaUrBZ6k fy9VVPlWZpXjO2LezNvfFBNzp4tiTIDsPF9aiJJyUN L4PIKod1klvsTcBwSIx2sfpzoeXZQnFQLdCUHpHI0pCBQwYIMaBtIcUCDJWM0GQCHoPEFglIAjSIIoSX BYLL7PUXyyFPP5KSUcynAawCHoRNvwGY8XKNZtxnIiBiShHXZLNFt+Um8AMB6bz7SyNQf9CIXyl1IyOX w6PZ5FNDMrUOfoDSLhPP2lk9AvH6M0ArZ1eMJlW2xw ypijI4SyjyDhvrTnVLNzHWAfER3PNG3KXO6XESZzYIbmZC1XCAX9WDd7LQGhJwMhLRPhCnN0DkfzMN9D ZSWoSYZ2RJ1QCP0GTcslL6MUHCwdkRXbubxpN6FekU8ztpEkCzhiXCu4hC9diIH6OM8yfA67kx0wk2yu P1AreDeqmcipD4QmmY3rP821VULbBtCwWhZubqcbFo 4gDQo+Yt7FEP1wm8CoKGupVNDdLC0aiq0TFOvKPxKbG2X9mYRzD2F2PJjvLh7CDVNeBOFyIpXeBLEESR nlAD4QIM3okiF5GP6BfMZkNZJfUDAtxVHlXPz2C10owQZlQDytXY4FZYX+Nate+Wc8LDYAkRKAwZQBcXe JaJAZHPtKwI1CyZ6AEk5MeY4TvJT97sPktekUzDDdt OR8ACT7dLHLhVKUNSO1LwFHosY0iceDxWaDpHHWFGyEiQ29xhKSwOQRuAAD8COJjLs8FCTEzJ9VmccVn yRyjudDiKQZkOSGQSK7XPFpmpeEuoEUybFkoRM18wZiaUA9SVi1GOqSyMK1bra8DjEKuLa8VZNMtLW6A DCVbWQEnKULkCVX1UAYsQbKoQJabQOIzFWHkPYW6TA JtAWWbFQ1BOhDcKZSxUqI0QLHcWWDeJCHjpa8TOGSeOPNxHEgmMDDfXTSfKJDoYYnoXRPcDIOnROH9BZ YcQGWrBG4DYpPaJICiCBU6GSCdEROcDNZzjq7MBHAeQDRvLOU6SSZeQNEgMIDgCFsnYSToTSO9DVJ2JO LuMMGqYC9DBdTfWLEpTtlyCWtvMLWrOGYvdh3UKXWn XJVsWap3OxXwUJVdRRYtYQytSVQzWJSkKei8NSQwKKJgEI8NMxZaNBEkIBX3LAXpSDRgNCIciu1PKQNc LNNdWfdoCKZdCPYwLDVdIKxqIFMzXTF4XQJ5MFWiWBFuOV8WMoSkKOFzXUU0JRItBNWjKMSupt6SAIDl YMGbBDj6IlHtOROlMLWjGGcxDAEvDMW5GkQ0TVJuDR UnUT0YIrWhHIYzPHD8AAXoOXNyMIKwqi8JVARvTYZlOaDyJpExJBHvXJUlGXakUNOfQTU7PMd1HYEdIQ WgBD1LZfBhOEAxDKvnTOtfIALdGPOehw0ZRCWiOBCkFgU3BuOmPBUzDGNiWDlnGOMqMYQ7ZIU6OQByDH MhAZ2CKgUtVVSlClopVADwOFEoKICsvl9NAPAmRKNj TPO2NZEoAEUfEBNiHTvtODEcNAC3UyQhLVZlXWNuXR1PVuBtTUXdGzq0QPDrZEEcRAFkgr7MXLNyEOBg HChpBkFsASQtCEWtFDwdUKYmBTG6JAT8AVLlCMPtUJ9OZxYjTNQqRvXxNqCrFLGdMVVkjd5AZUTwEIDy OPB1HNUkUNJfKIRyCTnvCBVhSBR0JnS2GZUxZOCyYQ 5HPsTvGHXlOeJ7SgAxLSEaNYBnzc8AASNqTOWtLpu2LKRhXNWkILKgDIxiWYRsOSQ3QBW5PBRoAADgSV 1GTzMyBCHeZyjgPzZiZKQbWZEnzk1IAHLlLSXtLHyoQkJfKTLrMEGiOMvjHVQxBKH1HDp0VDDoFTDiRL 7QBmLyQVBsDipmTSDpNHRxBRXtxb1HkZHnaYspwf5T LTwINi5QwUnhSCU3XWmsAa0wvOPoKCBzKYWDCj0IvaJeJWLtVOXDSHvhECIsHYB2UAnqUBo7VOXzBPLk BJZ3IfPyRMjaAUBfADvzXDflVxN7OxF7VZHeFhxwXCZ4GKV9WSFcZ8TbTtK2XyG9YQXsCLR+XM2bGFf+ Xa6Ss4SbssP4btWoPYukJZI5OJ6MVGILG7QXYm== ID Date Data Source [id number] 01/17/2021 10:55:25 AM EDT [facility] Name Value Range Interpretation Code Description Data Lashonda rce(s) Supporting Document(s) Choriogonadotropin ( test) [Presence] in Urine [facility] NEGATIVE: either no HCG or too low to de tect, <20 mU/mL Specific gravity of Urine by Refractometry 1.014 1.003-1.030 [facility] ID Date Data Source [id number] 01/17/2021 12:36:51 PM [facility] Value Range Interpretation Code Description Data Lashonda rce(s) Supporting Document(s) Amphetamine [Presence] in Urine by Screen method Negative [facility] Benzodiazepines [Presence] in Urine [facility] Cannabinoids [Presence] in Urine by Screen method Negative [facility] Benzoylecgonine [Presence] in Urine by Screen method [facility] Methadone [Presence] in Urine by Screen method Negative [facility] Opiates [Presence] in Urine by Screen method Negative [facility] Oxycodone [Presence] in Urine by Screen method Negative [facility] Fentanyl+Norfentanyl [Presence] in Urine by Screen method Negative [facility] Service comment [facility] Results below the indicated cutoff (ng/m L), are reported as"Negative." Note: for medical purposes only; not valid for legalor employment testing. ID Date Data Source [id number] 01/17/2021 04:06:02 PM EDT [facility] Name Value Range Interpretation Code Description Data Lashonda rce(s) Supporting Document(s) Buprenorphine [Presence] in Urine Negative A [facility] (NOTE)Positive results above the cutoff of 10 ng/mL are presumptive andunconfirmed. Confirmatory testing can be ordered at [address] [address] within 5 days of collection. ID Date Data Source [id number] 10/29/2020 12:00:00 AM EDT [facility] Name Value Range Interpretation Code Description Data [facility](s) Supporting Document(s) SARS-CoV2 Rapid Antigen Negative [facility] This lab was ordered by [employer] and reported by [employer]. ID Date Data Source [id number] 10/03/2020 01:03:00 [place] [address] HEALTH INFORMATION MANAGEMENT ED/UC Physician Report : [id number] Signed Patient: Peg Mcfadden Acct:[id number] Unit: [id number] : 1995 Arrival Date: 10/02/20 Age/Sex: 25 [...] rce(s) Supporting Document(s) ID Date Data Source [id number] 08/22/2020 10:28:00 PM EDT [facility] Name Value Range Interpretation Code Description Data Lashonda rce(s) Supporting Document(s) HCG QUALITATIVE SPECIMEN URINE [facility] ID Date Data Source [id number] 08/22/2020 10:28:00 PM EDT [facility] Name Value Range Interpretation Code Description Data Lashonda rce(s) Supporting Document(s) HCG RESULT,U NEGATIVE [facility] Reference range is Negative To ensure best sensitivity, first morning void is recommended. Dilute, low specific gravity urine may give a falsely negative result. If is suspected, repeat testing with a new specimen 48-72 hours later. ID Date Data Source [id number] 08/22/2020 09:41:00 PM EDT [facility] Run: 08/24/20 0849 INTERFACED REPORT Name: Peg Mcfadden Age/Sex: 24/F Location: ED Acct: [id number] Unit: [id number] Status: DEP ER Room/Bed: Re08/22/20 Disch: Att Dr: Debbie Stovall MD Specimen #: [id number] Ordered : 08/22/2009/07/2140 Collected : 08/22/2009/07/2122 By: [...] Lashonda rce(s) Supporting Document(s) COLOR,UR STRAW YELLOW [facility] APPEARANCE,UR CLEAR CLEAR [facility] PH,UR 6.0 5.0-8.0 [facility] SPECIFIC GRAVITY,UR 1.001 1.002-1.035 L [facility] PROTEIN,UR NEGATIVE MG/DL NEGATIVE [facility] GLUCOSE, UR NEGATIVE MG/DL NEGATIVE [facility] KETONES,UR NEGATIVE MG/DL NEGATIVE [facility] OCCULT BLOOD,UR SMALL NEGATIVE A [facility] NITRATE,UR NEGATIVE NEGATIVE [facility] LEUKOCYTE ESTERASE ,UR LARGE NEGATIVE A [facility] BILIRUBIN,UR NEGATIVE NEGATIVE [facility] UROBILINOGEN,UR 0.2-1.0 EU MG/DL NEG-0-1.0 [facility] RBC,UR 3-9 PER HPF 0-2 A [facility] WBC,UR 10-24 PER HPF <5 A [facility] URINE EPITH RARE PER/LPF FEW-MOD [facility] BACTERIA,UR RARE PER HPF NONE [facility] MUCUS,UR RARE PER HPF NONE SEEN [facility] ID Date Data Source [id number] 08/24/2020 08:49:00 AM EDT [facility] Run: 08/24/20 0849 INTERFACED REPORT Name: Peg Mcfadden Age/Sex: 24/F Location: ED Acct: [id number] Unit: [id number] Status: DEP ER Room/Bed: Re08/22/20 Disch: Att Dr: Debbie Stovall MD Specimen #: [id number] Ordered : 08/22/2009/07/2140 Collected : 08/22/2009/07/2122 By: [...] rce(s) Supporting Document(s) ID Date Data Source [id number] 08/22/2020 09:10:00 [place] [address] HEALTH INFORMATION MANAGEMENT ED/UC Physician Report : [id number] Signed Patient: Peg Mcfadden Acct:[id number] Unit: [id number] : 1995 Arrival Date: 08/22/20 Age/Sex: 24 [...] Normal Affect Skin Skin exam: Dry, Intact, [place] and [place] Vital Signs Vital signs: [...] <<Signature on File>> Initializing User: Arelis Melgar [facility] 08/22/202109 Signed by: Arelis Melgar [facility] 08/23/20 0038 Debbie Stovall MD 08/23/20 0039 Name Value Range Interpretation Code Description Data [facility](s) Supporting Document(s) ID Date Data Source [id number] 08/24/2020 12:36:00 PM EDT [facility] Name Value Range Interpretation Code Description Data [facility](s) Supporting Document(s) CHLAMYDIA, GENITAL NEGATIVE NEGATIVE [facility] th GC, Genital NEGATIVE NEGATIVE [facility] ID Date Data Source [id number] 08/22/2020 10:15:00 PM EDT [facility] Run: 08/22/202214 INTERFACED REPORT Name: Peg Mcfadden Age/Sex: 24/F Location: ED Acct: [id number] Unit: [id number] Status: REG ER Room/Bed: Re08/22/20 Disch: Att Dr: Debbie Stovall MD Specimen #: [id number] Ordered : 08/22/2009/08/2203 Collected : 08/22/2009/07/2106 By: ALFRED Received: 08/22/2009/07/2204 By: MK Source: VAG/CERV Specimen Description: CERVICAL Procedure Result - WET PREP Final YEAST NONE SEEN TRICHOMONAS MANY CLUE CELLS NONE SEEN REFERENCE RANGE YEAST=NONE SEEN, TRICHOMONAS=NONE SEEN, CLUE CELLS=NONE SEEN -------- ---- END OF REPORT Name Value Range Interpretation Code Description Data Lashonda rce(s) Supporting Document(s) ID Date Data Source [id number] 03/01/2020 09:59:00 PM EST [employer] Name Value Range Interpretation Code Description Data [facility](s) Supporting Document(s) HCV Quant II 3400 IU/mL . [employer] HCV log10,S 3.531 . [employer] Result Units: log10 IU/mL Test Information,[facility] The quantitative range of this assay is 15 IU/mL to 100 million IU/mL. [address] [address] Dir: Ara Caraballo MD ID Date Data Source [id number] 02/23/2020 02:16:00 PM EST [employer] HCV QUANT WITH VIRAL LOAD IF AB >11 Run: 02/25/20 1114 INTERFACED REPORT Name: Peg Mcfadden Age/Sex: 24/F Location: [facility] Acct: [id number] Unit: [id number] Status: REG REF Room/Bed: Re02/23/20 Disch: Att Dr: Dada Bautista MD Specimen #: [id number] Ordered : 02/23/2009/06/1426 Collected : 02/23/2009/07/839 By: [...] rce(s) Supporting Document(s) HCG QUALITATIVE SPECIMEN URINE [facility] ID Date Data Source [id number] 02/23/2020 02:16:00 PM [employer] HCV QUANT WITH VIRAL LOAD IF AB >11 Run: 02/25/20 1114 INTERFACED REPORT Name: Peg Mcfadden Age/Sex: 24/F Location: [facility] Acct: [id number] Unit: [id number] Status: REG REF Room/Bed: Re02/23/20 Disch: Att Dr: Dada Bautista MD Specimen #: [id number] Ordered : 02/23/2009/06/1426 Collected : 02/23/2009/07/839 By: [...] WHITE BLOOD COUNT 8.60 10^3/uL 4.00-10.50 N [facility] ealth RED BLOOD COUNT 4.50 10^6/uL 3.90-5.20 N [facility] th HEMOGLOBIN 13.3 G/DL 11.5-15.6 [facility] HEMATOCRIT 39.8 % 35.0-46.0 N [facility] MCV 88.4 FL 80.0-100.0 N [facility] MCH 29.6 PG 27.0-34.0 N [facility] MCHC 33.4 G/DL 32-36 N [facility] RDW 13.7 % 11.5-14.5 N [facility] PLATELET COUNT 275 10^3/uL 130-400 N [facility] MPV 9.5 FL 8.7-13.2 [facility] GRAN % (AUTO) 68.3 % 42.0-75.0 N [facility] LYMPH % (AUTO) 23.7 % 20.0-51.0 [facility] MONO % (AUTO) 6.3 % 2.0-15.0 N [facility] EOS % (AUTO) 0.5 % 0.0-11.0 N [facility] BASO % (AUTO) 0.9 % 0.0-2.0 N [facility] IG % (AUTO) 0.3 % 1.00-5.00 [facility] IG # (AUTO) 0.0 10^3/uL <0.5 [facility] GRAN # (AUTO) 5.87 10^3/uL 1.50-6.50 N [facility] LYMPH # (AUTO) 2.0 k/uL 1.0-5.0 N [facility] MONO # (AUTO) 0.54 k/uL 0.20-1.50 N [facility] EOS # (AUTO) 0.04 10^3/uL 0.00-1.10 N [facility] BASO # (AUTO) 0.08 10^3/uL 0.00-0.20 N [facility] ID Date Data Source [id number] 02/23/2020 02:27:00 PM EST [facility] HCV QUANT WITH VIRAL LOAD IF AB >11 Run: 02/25/20 1114 INTERFACED REPORT Name: LesaPeg Age/Sex: 24/F Location: [facility] Acct: [id number] Unit: [id number] Status: REG REF Room/Bed: Re02/23/20 Disch: Att Dr: Dada Bautista MD Specimen #: [id number] Ordered : 02/23/2009/06/1426 Collected : 02/23/2009/07/839 By: [...] rce(s) Supporting Document(s) COLOR,UR SALAS YELLOW A [facility] APPEARANCE,UR TURBID CLEAR A [facility] PH,UR 5.0 5.0-8.0 [facility] SPECIFIC GRAVITY,UR 1.017 1.002-1.035 [facility] PROTEIN,UR 100 MG/DL NEGATIVE A [facility] GLUCOSE, UR NEGATIVE MG/DL NEGATIVE [facility] KETONES,UR NEGATIVE MG/DL NEGATIVE [facility] OCCULT BLOOD,UR MODERATE NEGATIVE A [facility] NITRATE,UR NEGATIVE NEGATIVE [facility] LEUKOCYTE ESTERASE ,UR TRACE NEGATIVE A [facility] BILIRUBIN,UR NEGATIVE NEGATIVE [facility] UROBILINOGEN,UR 0.2-1.0 EU MG/DL NEG-0-1.0 [facility] RBC,UR 1-2 PER HPF 0-2 [facility] WBC,UR 25-49 PER HPF <5 A [facility] AMORPH SED,UR MANY PER LPF NEGATIVE [facility] BACTERIA,UR FEW PER HPF NONE [facility] MUCUS,UR MODERATE PER HPF NONE SEEN [facility] ID Date Data Source [id number] 02/24/2020 12:57:00 PM EST [facility] HCV QUANT WITH VIRAL LOAD IF AB >11 Run: 02/25/20 1114 INTERFACED REPORT Name: Peg Mcfadden Age/Sex: 24/F Location: [facility] Acct: [id number] Unit: [id number] Status: REG REF Room/Bed: Re02/23/20 Disch: Att Dr: Dada Bautista MD Specimen #: [id number] Ordered : 02/23/2009/06/1426 Collected : 02/23/2009/07/839 By: [...] Supporting Document(s) RAPID PLASMA REAGIN NON-REACTIVE NONREACTIVE [facility] [employer] Test performed by charcoal methodology ID Date Data Source [id number] 02/25/2020 12:48:00 AM [facility] [place] [employer] HCV QUANT WITH VIRAL LOAD IF AB >11 Run: 02/25/20 1114 INTERFACED REPORT Name: Peg Mcfadden Age/Sex: 24/F Location: [facility] Acct: [id number] Unit: [id number] Status: REG REF Room/Bed: Re02/23/20 Disch: Att Dr: Dada Bautista MD Specimen #: [id number] Ordered : 02/23/2009/06/1426 Collected : 02/23/2009/07/839 By: [...] rce(s) Supporting Document(s) SODIUM 140 MEQ/L 135-145 [facility] POTASSIUM 3.6 MEQ/L 3.5-5.3 [facility] CHLORIDE 107 MEQ/L 94-110 N [facility] CARBON DIOXIDE 28 MEQ/L 22-33 N [facility] ANION GAP 9 5-16 N [facility] BLOOD UREA NITRO 10 MG/DL 7-25 N [facility] CREATININE 0.8 MG/DL 0.6-1.4 [facility] GFR 86.7 ML/MIN [facility] Stage G2 - Mildly decreased kidney func tion The GFR is an estimate of the Glomerular Filtration Rate. It is an aid to assess a patient's renal function. It is not a conclusive diagnosis of kidney disease. GFR normal is >=90 The MDRD GFR calculation is considered valid between the ages of 18 and 75 years only. BUN/CREAT RATIO 12 8-36 N [facility] GLUCOSE 76 MG/DL 70-100 N [facility] CA 9.6 MG/DL 8.7-10.5 N [facility] BILIRUBIN,TOTAL 0.2 MG/DL 0.1-1.3 N [facility] AST 25 U/L 5-40 N [facility] ALT 31 U/L 5-48 N [facility] ALKALINE PHOSPHATASE 122 U/L 40-140 N [facility] TOTAL PROTEIN 6.8 G/DL 5.9-8.3 N [facility] ALBUMIN 4.7 G/DL 3.0-5.1 N [facility] GLOBULIN 2.1 G/DL 1.5-3.5 N [facility] ALB/GLOB RATIO 2.2 G/DL 1.0-3.0 [facility] [facility] ID Date Data Source [id number] 02/25/2020 11:13:00 AM EST [facility] HCV QUANT WITH VIRAL LOAD IF AB >11 Run: 02/25/20 1114 INTERFACED REPORT Name: Peg Mcfadden Age/Sex: 24/F Location: [facility] Acct: [id number] Unit: [id number] Status: REG REF Room/Bed: Re02/23/20 Disch: Att Dr: Dada Bautista MD Specimen #: [id number] Ordered : 02/23/2009/06/1426 Collected : 02/23/2009/07/839 By: [...] rce(s) Supporting Document(s) ID Date Data Source [id number] 02/26/2020 12:13:00 AM [employer] HCV QUANT WITH VIRAL LOAD IF AB >11 Run: 02/25/20 1114 INTERFACED REPORT Name: Peg Mcfadden Age/Sex: 24/F Location: [facility] Acct: [id number] Unit: [id number] Status: REG REF Room/Bed: Re02/23/20 Disch: Att Dr: Dada Bautista MD Specimen #: [id number] Ordered : 02/23/2009/06/1426 Collected : 02/23/2009/07/839 By: ALEX Received: 02/23/2009/06/1340 By: DEMARCUS Source: URINE CC Specimen Description: Procedure Result - COLONY COUNT Final COLONY COUNT GREATER THAN 100,000 CFU/ML URINE CULTURE Final COLIFORMS MANY Organism 1 ESCHERICHIA COLI 1. ESCHERICHIA COLI AVEYR Int --------- --- AMIKACIN <=16 S AMPICILLIN [...] Code Description Data Lashonda rce(s) Supporting Document(s) HEPATITIS A ANTIBODY, IgM,S Negative Negative [facility] HEPATITIS A ANTIBODY, Total,S Negative Negative [facility] [employer] HEPATITIS B SURF ANTIGEN SCRN Negative Negative [facility] CORE ANTIBODY,IGM Negative Negative [facility] HEP B CORE ANTIBODY,TOTAL Negative [facility]FACE ANTIBODY Non Reactive . [facility] Non Reactive: Inconsisten t with immunity, less than 10 mIU/mL Reactive: Consistent with immunity, greater than 9.9 mIU/mL HCV Ab,S >11.0 s/co ratio 0.0-0.9 A [facility] [employer] HCV COMMENT [facility] Strong reactive antibody screen (s/c ra christopher >10.9) is consistent with past or present HCV infection. Follow-up testing by HCV, Quantitative, Real time PCR (#[id number]) is recommended to determine viral load/diagnosis of current HCV infection. Performed at: - [facility] [id number] Corporate Sales Representative: Ara Caraballo MD, Phone: [phone] ID Date Data Source [id number] 02/23/2020 02:16:00 PM EST [facility] [employer] HCV QUANT WITH VIRAL LOAD IF AB >11 Run: 02/25/20 1114 INTERFACED REPORT Name: Peg Mcfadden Age/Sex: 24/F Location: [facility] Acct: [id number] Unit: [id number] Status: REG REF Room/Bed: Re/05/20 Disch: Att Dr: Dada Bautista MD Specimen #: [id number] Ordered : 02/23/2009/06/1426 Collected : 02/23/2009/07/839 By: [...] Susceptible I = Intermediate R = Resistant ABIDRAHMAN = Beta Lactamase Positive AVERY = MCG/mL BLANK = Not Tested or Advisable URINE CULTURE Preliminary (Corrected) COLIFORMS MANY END OF REPORT HCV QUANT WITH VIRAL LOAD IF AB >11 Name Value Range Interpretation Code Description Data Lashonda rce(s) Supporting Document(s) HCG RESULT,U NEGATIVE [employer] Reference range is Negative To ensure best sensitivity, first morning void is recommended. Dilute, low specific gravity urine may give a falsely negative result. If is suspected, repeat testing with a new specimen 48-72 hours later. ID Date Data Source [id number] 02/25/2020 12:48:00 AM [facility] [employer] HCV QUANT WITH VIRAL LOAD IF AB >11 Run: 02/25/20 1114 INTERFACED REPORT Name: [place] Mcf[place] Sonny Age/Sex: 24/F Location: [facility] Acct: [id number] Unit: [id number] Status: REG REF Room/Bed: Re02/23/20 Disch: Att Dr: Dada Bautista MD Specimen #: [id number] Ordered : 02/23/2009/06/1426 Collected : 02/23/2009/07/839 By: [...] Supporting Document(s) TSH 1.762 uIU/ML 0.470-4.200 N [employer] Patients should not be tested for 70 ho urs post fluorescein dye angiography. A false depression of result may occur. ID Date Data Source [id number] 02/26/2020 12:13:00 AM EST [employer] HCV QUANT WITH VIRAL LOAD IF AB >11 Run: 02/25/20 1114 INTERFACED REPORT Name: Peg Mcfadden Age/Sex: 24/F Location: [facility] Acct: [id number] Unit: [id number] Status: REG REF Room/Bed: Re02/23/20 Disch: Att Dr: Dada Bautista MD Specimen #: [id number] Ordered : 02/23/2009/06/1426 Collected : 02/23/2009/07/839 By: [...] rce(s) Supporting Document(s) T-SPOT FOR TUBERCULOSIS See [facility] T-SPOT.TB Negative N ormal Value: Negative A [...] the T-SPOT.TB test may be found at [email or web address]-[email or web address]. [email or web address] [address] [place] [id number] [email or web address] CLIA ID# [id number] Liliane Mariano M.D.,Ph.D. Director ID Date Data Source [id number] 02/26/2020 12:13:00 AM [facility] [employer] HCV QUANT WITH VIRAL LOAD IF AB >11 Run: 02/25/20 1114 INTERFACED REPORT Name: Peg Mcfadden Age/Sex: 24/F Location: [facility] Acct: [id number] Unit: [id number] Status: REG REF Room/Bed: Re02/23/20 Disch: Att Dr: Dada Bautista MD Specimen #: [id number] Ordered : 02/23/2009/06/1426 Collected : 02/23/2009/07/839 By: [...] SCREEN 4TH GENERATION Non Reactive Non Reactive [facility] Performed at: RN - [facility] [address] [id number] Corporate Sales Representative: Ara Caraballo MD, Phone: [phone] Procedure Social History Code Duration Value Status Description Data Source(s ) 08/22/2020 09:10:42 PM EDT Never Smoker completed Never S [facility] [employer] 08/22/2020 09:10:42 PM EDT Cigarettes completed Cigarette s [facility] [employer] 08/22/2020 09:10:42 PM EDT Never Smoker completed Never S [facility] [employer] 08/22/2020 09:10:42 PM EDT Cigarettes completed Cigarette s [facility] [employer] Smoking 08/22/2020 09:10:00 PM EDT Never smoked tobacco (findi ng) completed Never smoked tobacco (finding) [facility] [employer] Smoking 08/22/2020 09:10:00 PM EDT Never smoked tobacco (findi ng) completed Never smoked tobacco (finding) [facility] Vital Signs ID Date Data Source UNK Name Value Range Interpretation Code Description Data Source(s) Body temperature 98.7 [degF] 98.7 [degF] [facility] [employer] Heart rate 59 /min 59 /min [facility] [employer] Respiratory rate 18 /min 18 /min [facility] Body temperature 98.7 [degF] 98.7 [degF] [facility] [employer] Heart rate 59 /min 59 /min [facility] Respiratory rate 18 /min 18 /min [facility] saturation in Arterial blood by Pulse oximetry 100 % 100 % [facility] [employer] Systolic blood pressure 92 mm[Hg] 92 mm[Hg] [facility] Diastolic blood pressure 50 mm[Hg] 50 mm[Hg] [facility] Oxygen saturation in Arterial blood by Pulse oximetry 100 % 100 % [facility] [employer] Systolic blood pressure 92 mm[Hg] 92 mm[Hg] [facility] Diastolic blood pressure 50 mm[Hg] 50 mm[Hg] [facility] [employer] Body height 162.56 cm 162.56 cm [facility] [employer] Body weight 60.00 kg 60.00 kg [facility] Body height 162.56 cm 162.56 cm [facility] Body weight 60.00 kg 60.00 kg [facility] Body height 162.56 cm 162.56 cm [facility] Body weight 54.55 kg 54.55 kg [facility] [employer] Body temperature 97.9 [degF] 97.9 [degF] [facility] [employer] Heart rate 58 /min 58 /min [facility] Respiratory rate 16 /min 16 /min [facility] Oxygen saturation in Arterial blood by Pulse oximetry 97 % 97 % [facility] Body height 162.56 cm 162.56 cm [facility] Systolic blood pressure 100 mm[Hg] 100 mm[Hg] [facility] Diastolic blood pressure 54 mm[Hg] 54 mm[Hg] [facility] Body weight 54.55 kg 54.55 kg [facility] Body temperature 97.9 [degF] 97.9 [degF] [facility] Heart rate 58 /min 58 /min [facility] Respiratory rate 16 /min 16 /min [facility] Oxygen saturation in Arterial blood by Pulse oximetry 97 % 97 % [facility] Systolic blood pressure 100 mm[Hg] 100 mm[Hg] O [facility] Diastolic blood pressure 54 mm[Hg] 54 mm[Hg] [facility] Body height 162.56 cm 162.56 cm [facility] Body weight 54.55 kg 54.55 kg [facility] Body temperature 97.9 [degF] 97.9 [degF] [facility] Heart rate 58 /min 58 /min [facility] Respiratory rate 16 /min 16 /min [facility] Oxygen saturation in Arterial blood by Pulse oximetry 97 % 97 % [facility] Systolic blood pressure 100 mm[Hg] 100 mm[Hg] O [facility] Diastolic blood pressure 54 mm[Hg] 54 mm[Hg] [facility] Body height 162.56 cm 162.56 cm [facility] Body weight 54.55 kg 54.55 kg [facility] Body temperature 97.9 [degF] 97.9 [degF] [facility] Heart rate 58 /min 58 /min [facility] Respiratory rate 16 /min 16 /min [facility] Oxygen saturation in Arterial blood by Pulse oximetry 97 % 97 % [facility] Systolic blood pressure 100 mm[Hg] 100 mm[Hg] [facility] Diastolic blood pressure 54 mm[Hg] 54 mm[Hg] [facility] ID Date Data Source [id number] 01/24/2021 08:25:54 AM [facility] Name Value Range Interpretation Code Description Data Source(s) WEIGHT RECORDED 180 lb 180 lb [facility] Body height Measured 64 in 64 in [facility]
== END 2021-03-01 22:38 | disposition left against medical advice (07) ==
LOC: M ED 17:06
DX: Z53.29 Procedure and treatment not carried out because of patient's decision for other reasons (principal)

== ENCOUNTER 2022-07-21 18:18 | Emergency (ER) | payer OTHER, SELFPAY ==
[~2022-07-21] VITALS: Ht 162.6 cm; Wt 94.8 kg
[~2022-07-21 18:18] MED LIST: SUBO12MI
[2022-07-21] MEDS ORDERED: METH-1177 PO (18:24)
[2022-07-21] MEDS ORDERED: ONDANSETRON 4MG 2ML VIAL IV ONE (19:15)
[2022-07-21] MEDS ORDERED: KETOROLAC 30 MG/ML 1ML VIAL IV ONE (19:15)
[2022-07-21] MEDS ORDERED: AMPICILLIN SOD/SULBACTAM SOD 3 GM in D5W MINI-BAG PLUS 100 ML IV ONE (19:15)
[2022-07-21] MEDS ORDERED: NS 1,000 ML IV ONE ×2 (19:15)
[2022-07-21] MEDS ORDERED: ONDANSETRON 4MG ORAL DISINTEGRATING TAB PO ONE (21:10)
[2022-07-21] MEDS ORDERED: KETOROLAC 60MG 2ML VIAL IM ONE (21:10)
[2022-07-21] MEDS ORDERED: cefTRIAXone SOD 1 GM in D5W MINI-BAG PLUS 50 ML IV ONE (21:10)
[2022-07-21] MEDS ORDERED: LIDOCAINE 1% SDV 5ML VIAL DILUENT ONE (21:35)
[2022-07-21] MEDS ORDERED: cefTRIAXone SOD 1GM VIAL IM ONE (21:35)
[2022-07-21 21:40] LABS: ALBUMIN 3.2 G/DL (3.2-5.2); BILIRUBIN,DIRECT 0.1 MG/DL (<0.4); BILIRUBIN,TOTAL 0.3 MG/DL (0.3-1.2); TOTAL PROTEIN 7.1 G/DL (5.7-8.2)
[2022-07-21 22:57] LABS: BASO % 0.3 % (0.0-1.0); EOS % 0.1 % (0.0-3.0); HEMATOCRIT 33.7 % (36.0-47.0); HEMOGLOBIN 11.1 g/dl (12.0-15.5); LYMPH # 2.6 10^3/uL (1.5-5.0); LYMPH % 18.9 % (24.0-44.0); MEAN CORPUSCULAR HEMOGLOBIN 29.7 pg (27.0-33.0); MEAN CORPUSCULAR HGB CONC 32.9 g/dl (32.0-36.5); MEAN CORPUSCULAR VOLUME 90.1 fl (80.0-96.0); MONO # 1.3 10^3/uL (0.0-0.8); MONO % 9.3 % (2.0-8.0); NEUTROPHILS # 9.8 10^3/uL (1.5-8.5); NEUTROPHILS % 70.9 % (36.0-66.0); PLATELET COUNT, AUTOMATED 255 10^3/uL (150-450); RED BLOOD COUNT 3.74 10^6/uL (4.00-5.40); WHITE BLOOD COUNT 13.8 10^3/uL (4.0-10.0)
[2022-07-21 23:08] LABS: C REACTIVE PROTEIN QUANTITATIV 19.8 MG/DL (<1.0)
[2022-07-21 23:08] LABS: ERYTHROCYTE SEDIMENTATION RATE 96 mm/hr (0-20)
[2022-07-21 23:15] LABS: BLOOD UREA NITROGEN 8 MG/DL (9-23); CALCIUM LEVEL 8.9 MG/DL (8.5-10.1); CARBON DIOXIDE LEVEL 30 MMOL/L (20-31); CHLORIDE LEVEL 99 MMOL/L (98-107); CREATININE FOR GFR 0.81 MG/DL (0.55-1.30); GLOMERULAR FILTRATION RATE > 60.0 (>60); GLUCOSE, FASTING 80 MG/DL (60-100); POTASSIUM SERUM 4.4 MMOL/L (3.5-5.1); SODIUM LEVEL 134 MMOL/L (136-145)
[2022-07-21 23:19] VITALS: BP 107/65
[2022-07-21] MEDS ORDERED: AMOX875T2 PO (23:23)
[2022-07-21] MEDS ORDERED: IBUP80TA PO (23:46)
== END 2022-07-21 23:50 | disposition home or self-care (01) ==
LOC: M ED 18:18
DX: R51.9 Headache, unspecified (principal); K04.7 Periapical abscess without sinus; F41.9 Anxiety disorder, unspecified; F17.210 Nicotine dependence, cigarettes, uncomplicated
CPT/HCPCS: 70450; 80047; 80048; 80076; 83605; 84702; 85025; 85652; 86140; 87040; 96372; 99283; J0696; J1885

== ENCOUNTER 2022-12-02 10:06 | Emergency (ER) | payer OTHER ==
[~2022-12-02] VITALS: Ht 160 cm; Wt 98.1 kg
[2022-12-02 10:06] VITALS: BP 147/97; TEMP 98.4; O2SAT 100
[~2022-12-02 10:06] MED LIST changes: +AMOX875T2 PO; +IBUP80TA PO; +METH-1177 PO
[2022-12-02] MEDS ORDERED: SERT25TA21 (10:16)
[2022-12-02] MEDS ORDERED: MIRT-10 (10:16)
[2022-12-02] MEDS ORDERED: BUPR-71 (10:16)
== END 2022-12-02 11:13 | disposition left against medical advice (07) ==
LOC: M ED 10:06
DX: K08.89 Other specified disorders of teeth and supporting structures (principal); Z53.21 Procedure and treatment not carried out due to patient leaving prior to being seen by health care provider

== ENCOUNTER → 2023-01-06 | Outpatient (CLI) | payer OTHER ==
[~2023-01-06] MED LIST changes: +BUPR-71; +MIRT-10; +SERT25TA21
[2023-01-06 14:51] LABS: HEMATOCRIT 41.6 % (36.0-47.0); HEMOGLOBIN 13.6 g/dl (12.0-15.5); MEAN CORPUSCULAR HEMOGLOBIN 30.1 pg (27.0-33.0); MEAN CORPUSCULAR HGB CONC 32.7 g/dl (32.0-36.5); PLATELET COUNT, AUTOMATED 236 10^3/uL (150-450); RED BLOOD COUNT 4.52 10^6/uL (4.00-5.40); WHITE BLOOD COUNT 7.1 10^3/uL (4.0-10.0)
[2023-01-06 15:03] LABS: ALBUMIN 4.1 G/DL (3.2-5.2); ALKALINE PHOSPHATASE 130 U/L (46-116); ALT/SGPT 38 U/L (7.0-40); AST/SGOT 28 U/L (<34); BILIRUBIN,TOTAL 0.3 MG/DL (0.3-1.2); BLOOD UREA NITROGEN 8 MG/DL (9-23); CALCIUM LEVEL 9.5 MG/DL (8.5-10.1); CARBON DIOXIDE LEVEL 28 MMOL/L (20-31); CHLORIDE LEVEL 105 MMOL/L (98-107); CREATININE FOR GFR 0.91 MG/DL (0.55-1.30); GLOMERULAR FILTRATION RATE > 60.0 (>60); GLUCOSE, FASTING 74 MG/DL (60-100); POTASSIUM SERUM 4.7 MMOL/L (3.5-5.1); SODIUM LEVEL 138 MMOL/L (136-145); TOTAL PROTEIN 7.5 G/DL (5.7-8.2)
[2023-01-06 15:12] LABS: HCG, SERUM QUALITATIVE NEGATIVE (NEGATIVE)
[2023-01-06 15:28] LABS: HIV 1&2 SCREEN NEGATIVE (NEGATIVE)
[2023-01-06 15:50] LABS: GC DNA AMPLIFICATION NEGATIVE (NEGATIVE); HEPATITIS C VIRUS ABY INDEX > 11.00 INDEX (<0.8)
== END ==
LOC: M LAB 12:36
PROVIDERS: ATTEND Family Medicine
DX: F11.20 Opioid dependence, uncomplicated (principal)

== ENCOUNTER 2023-02-05 12:55 | Day surgery (SDC) | payer OTHER ==
[~2023-02-05] VITALS: Ht 162.6 cm; Wt 95.3 kg
[~2023-02-05 12:55] MED LIST changes: +AMPICILLIN SOD/SULBACTAM SOD 3 GM in D5W MINI-BAG PLUS 100 ML IV ONE; -BUPR-71; +BUPR-71 PO; -MIRT-10; +MIRT-10 PO; -SERT25TA21; +SERT25TA21 PO
[2023-02-05] MEDS ORDERED: CHLORHEXIDINE GLUCONATE 0.12 % 15ML UDC (PERIDEX ORAL RINSE) As Ordered ONE (15:00)
[2023-02-05] MEDS ORDERED: LIDOCAINE 2% W/ EPINEPHRINE 1.7 ML DENTAL INJ As Ordered ONE (15:01)
[2023-02-05] MEDS ORDERED: dexmedeTOMIDine (4MCG/ML)200MCG/50ML BTL (PRECEDEX) As Ordered ONE (15:51)
[2023-02-05] MEDS ORDERED: propofoL 200 MG/20 ML VIAL As Ordered ONE (15:51)
[2023-02-05] MEDS ORDERED: fentaNYL 250 MCG/5 ML INJECTION As Ordered ONE (15:51)
[2023-02-05] MEDS ORDERED: LIDOCAINE 2% 100MG/5ML SDV (FOR ANES.) As Ordered ONE (15:51)
[2023-02-05] MEDS ORDERED: MIDAZOLAM INJ 2MG/2ML VIAL As Ordered ONE (15:51)
[2023-02-05] MEDS ORDERED: SUGAMMADEX SODIUM 500 MG/5 ML VIAL (BRIDION) As Ordered ONE (15:51)
[2023-02-05] MEDS ORDERED: ROCURONIUM BROMIDE 50MG/5ML VIAL As Ordered ONE (15:51)
[2023-02-05] MEDS ORDERED: ONDANSETRON 4MG 2ML VIAL As Ordered ONE (15:51)
[2023-02-05] MEDS ORDERED: LIDOCAINE 5% OINT 30GM TUBE As Ordered ONE (15:51)
[2023-02-05] MEDS ORDERED: ACETAMINOPHEN 1000MG 100ML IV BAG As Ordered ONE (16:02)
[2023-02-05] MEDS ORDERED: KETOROLAC 60MG 2ML VIAL As Ordered ONE (16:18)
[2023-02-05] MEDS ORDERED: GLYCOPYRROLATE INJ 0.2 MG/ML 2 ML VIAL As Ordered ONE (16:37)
[2023-02-05] MEDS ORDERED: HYDROMORPHONE HCL 0.5 MG/ 0.5 ML SYRINGE IV PRN (17:05)
[2023-02-05] MEDS ORDERED: fentaNYL 100 MCG/2 ML INJECTION IV PRN (17:05)
[2023-02-05] MEDS ORDERED: oxyCODONE 5MG TAB PO PRN (17:05)
[2023-02-05] MEDS ORDERED: ONDANSETRON 4MG 2ML VIAL IV PRN (17:05)
[2023-02-05] MEDS ORDERED: LR 1,000 ML IV SCH (17:05)
[2023-02-05 17:55] VITALS: BP 109/55; TEMP 98.2; O2SAT 96
== END 2023-02-05 18:25 | disposition home or self-care (01) ==
LOC: M SDC 12:55
PROVIDERS: ATTEND Dentist
DX: K02.9 Dental caries, unspecified (principal); F40.232 Fear of other medical care; F32.A Depression, unspecified; F41.9 Anxiety disorder, unspecified; B19.20 Unspecified viral hepatitis C without hepatic coma; Z91.040 Latex allergy status; Z79.899 Other long term (current) drug therapy
CPT/HCPCS: 81025; 88300; C9290; D7140; D7210; D7310; D7311; D9223; J0131; J1100; J1885; J2250; J2405; J3010

== ENCOUNTER 2023-09-25 20:51 | Emergency (ER) | payer OTHER ==
[~2023-09-25] VITALS: Ht 162.6 cm; Wt 95.4 kg
[2023-09-25 20:51] VITALS: BP 104/52; TEMP 96.4; O2SAT 97
[~2023-09-25 20:51] MED LIST changes: -AMPICILLIN SOD/SULBACTAM SOD 3 GM in D5W MINI-BAG PLUS 100 ML IV ONE
[2023-09-25] MEDS ORDERED: FLON1SPR NARES (23:14)
[2023-09-25] MEDS ORDERED: OXYM15SP2 (23:14)
== END 2023-09-25 23:29 | disposition home or self-care (01) ==
LOC: M ED 20:51
DX: R09.82 Postnasal drip (principal); H65.03 Acute serous otitis media, bilateral; F41.9 Anxiety disorder, unspecified; F32.A Depression, unspecified; F17.200 Nicotine dependence, unspecified, uncomplicated; Z79.899 Other long term (current) drug therapy; Z91.040 Latex allergy status

== ENCOUNTER → 2023-12-03 | Outpatient (REF) | payer OTHER ==
[~2023-12-03] MED LIST changes: +FLON1SPR NARES; +OXYM15SP2
[2023-12-03 21:55] LABS: AMORPHOUS SEDIMENT SMALL (NEGATIVE); APPEARANCE, URINE HAZY (CLEAR); BACTERIA, URINE AUTO NEGATIVE (NEGATIVE); BILIRUBIN, URINE AUTO NEGATIVE (NEGATIVE); BLOOD, URINE BLOOD NEGATIVE (NEGATIVE); COLOR, URINE YELLOW (YELLOW); GLUCOSE, URINE (UA) AUTO NEGATIVE (NEGATIVE); KETONE, URINE AUTO NEGATIVE (NEGATIVE); LEUKOCYTE ESTERASE, URINE AUTO NEGATIVE (NEGATIVE); MUCUS, URINE MODERATE (NEGATIVE); NITRITE, URINE AUTO NEGATIVE (NEGATIVE); PROTEIN, URINE AUTO 1+ mg/dL (NEGATIVE); RBC, URINE AUTO 1 /HPF (0-3); SPECIFIC GRAVITY URINE AUTO 1.029 (1.002-1.035); SQUAMOUS EPITHELIAL CELL UR AU 2 /HPF (0-6); UROBILINOGEN, URINE AUTO 0.2 mg/dL (0.0-2.0); WBC, URINE AUTO 2 /HPF (0-3)
== END ==
LOC: M LAB REF 21:23
PROVIDERS: ATTEND Physician Assistant
DX: N39.0 Urinary tract infection, site not specified (principal)

== ENCOUNTER 2024-03-13 12:44 | Emergency (ER) | payer OTHER ==
[~2024-03-13] VITALS: Ht 162.6 cm; Wt 95.7 kg
[2024-03-13 14:38] LABS: BASO # 0.1 10^3/uL (0.0-0.2); BASO % 0.7 % (0.0-1.0); EOS # 0.2 10^3/uL (0.0-0.5); HEMATOCRIT 41.4 % (36.0-47.0); HEMOGLOBIN 13.6 g/dl (12.0-15.5); LYMPH # 2.5 10^3/uL (1.5-5.0); LYMPH % 28.7 % (24.0-44.0); MEAN CORPUSCULAR HEMOGLOBIN 30.4 pg (27.0-33.0); MEAN CORPUSCULAR HGB CONC 32.9 g/dl (32.0-36.5); MEAN CORPUSCULAR VOLUME 92.6 fl (80.0-96.0); MONO # 0.4 10^3/uL (0.0-0.8); MONO % 4.3 % (2.0-8.0); NEUTROPHILS # 5.6 10^3/uL (1.5-8.5); NEUTROPHILS % 63.7 % (36.0-66.0); PLATELET COUNT, AUTOMATED 211 10^3/uL (150-450); RED BLOOD COUNT 4.47 10^6/uL (4.00-5.40); WHITE BLOOD COUNT 8.8 10^3/uL (4.0-10.0)
[2024-03-13 14:52] LABS: BLOOD UREA NITROGEN 11 MG/DL (9-23); CALCIUM LEVEL 9.2 MG/DL (8.5-10.1); CARBON DIOXIDE LEVEL 30 MMOL/L (20-31); CHLORIDE LEVEL 106 MMOL/L (98-107); CREATININE FOR GFR 0.81 MG/DL (0.55-1.30); GLOMERULAR FILTRATION RATE > 60.0 (>60); GLUCOSE, FASTING 181 MG/DL (60-100); POTASSIUM SERUM 4.6 MMOL/L (3.5-5.1); SODIUM LEVEL 140 MMOL/L (136-145)
[2024-03-13 14:58] LABS: HCG, SERUM QUALITATIVE NEGATIVE (NEGATIVE)
[2024-03-13 15:33] LABS: ALBUMIN 3.6 G/DL (3.2-5.2); ALKALINE PHOSPHATASE 99 U/L (35-104); ALT/SGPT 23 U/L (7.0-40); AST/SGOT 26 U/L (<34); BILIRUBIN,DIRECT < 0.1 MG/DL (<0.4); BILIRUBIN,TOTAL 0.2 MG/DL (0.3-1.2); CK-MB VALUE MASS < 1.0 NG/ML (<3.6); CPK CREATINE PHOSPHOKINASE 55 U/L (34-145); FREE T4 1.09 NG/DL (0.89-1.76); MB/CK RELATIVE INDEX 1.81 (< OR =4); THYROID STIMULATING HORMONE 4.111 uIU/ML (0.55-4.78); TOTAL PROTEIN 7.1 G/DL (5.7-8.2)
[2024-03-13 16:20] LABS: CK-MB VALUE MASS < 1.0 NG/ML (<3.6)
[2024-03-13 16:29] LABS: CPK CREATINE PHOSPHOKINASE 46 U/L (34-145); MB/CK RELATIVE INDEX 2.17 (< OR =4)
[2024-03-13 17:54] LABS: AMPHETAMINES LEVEL URINE NEGATIVE (NEGATIVE); BARBITURATES URINE NEGATIVE (NEGATIVE); BENZODIAZEPINES URINE NEGATIVE (NEGATIVE); COCAINE METABOLITE URINE NEGATIVE (NEGATIVE); PHENCYCLIDINE URINE NEGATIVE (NEGATIVE)
[2024-03-13 18:12] VITALS: BP 102/54; TEMP 96.8; O2SAT 97
[2024-03-13 18:12] LABS: CANNABINOIDS URINE POSITIVE (NEGATIVE); METHADONE URINE POSITIVE (NEGATIVE); OPIATES URINE POSITIVE (NEGATIVE)
== END 2024-03-13 18:44 | disposition home or self-care (01) ==
LOC: M ED 12:44 → EDBD 12:44 → M ED 18:44
DX: F11.10 Opioid abuse, uncomplicated (principal); F32.A Depression, unspecified; Z79.899 Other long term (current) drug therapy; Z91.040 Latex allergy status

== ENCOUNTER → 2024-07-27 | Outpatient (CLI) | payer OTHER ==
[2024-07-27 14:29] LABS: HEMATOCRIT 39.8 % (36.0-47.0); HEMOGLOBIN 13.1 g/dl (12.0-15.5); MEAN CORPUSCULAR HGB CONC 32.9 g/dl (32.0-36.5); MEAN CORPUSCULAR VOLUME 91.3 fl (80.0-96.0); PLATELET COUNT, AUTOMATED 232 10^3/uL (150-450); RED BLOOD COUNT 4.36 10^6/uL (4.00-5.40); WHITE BLOOD COUNT 7.4 10^3/uL (4.0-10.0)
[2024-07-27 15:03] LABS: ALBUMIN 3.6 G/DL (3.2-5.2); ALKALINE PHOSPHATASE 101 U/L (35-104); ALT/SGPT 38 U/L (7.0-40); AST/SGOT 28 U/L (<34); BILIRUBIN,TOTAL 0.2 MG/DL (0.3-1.2); BLOOD UREA NITROGEN 10 MG/DL (9-23); CALCIUM LEVEL 9.2 MG/DL (8.5-10.1); CARBON DIOXIDE LEVEL 29 MMOL/L (20-31); CHLORIDE LEVEL 105 MMOL/L (98-107); CREATININE FOR GFR 0.81 MG/DL (0.55-1.30); GLOMERULAR FILTRATION RATE > 90.0 (>60); GLUCOSE, FASTING 83 MG/DL (60-100); POTASSIUM SERUM 4.6 MMOL/L (3.5-5.1); SODIUM LEVEL 139 MMOL/L (136-145); TOTAL PROTEIN 6.9 G/DL (5.7-8.2)
[2024-07-27 16:07] LABS: GC DNA AMPLIFICATION NEGATIVE (NEGATIVE)
[2024-07-27 16:40] LABS: HIV 1&2 SCREEN NEGATIVE (NEGATIVE)
[2024-07-27 16:56] LABS: HEPATITIS C VIRUS ABY INDEX > 11.00 INDEX (<0.8)
== END ==
LOC: M LAB 13:32
PROVIDERS: ATTEND Family Medicine
DX: F11.20 Opioid dependence, uncomplicated (principal)